=== PATIENT | male | born 1990 | race Caucasian/White ===

== ENCOUNTER 2018-03-16 22:55 | Outpatient (REF) | payer MEDICAID, SELFPAY ==
[2018-03-17 01:17] LABS: BUN 15 mg/dL (7-18); C-Reactive Protein 8.23 mg/dL (0.0-0.3); CREATININE 0.87 mg/dL (0.55-1.02)
[2018-03-17 01:42] LABS: Abs Immature Grans 0.06 k/cumm (0.0-0.09); Absolute Basophil Count 0.02 k/cumm (0.0-0.2); Absolute Eosinophil Count 0.32 k/cumm (0.0-0.7); Absolute Lymphocyte Count 2.61 k/cumm (1.2-3.4); Absolute Monocyte Count 0.72 k/cumm (0.11-0.7); Basophils % 0.2; Eosinophils % 2.6; HCT 35.3 % (36.0-46.0); Immature Grans % 0.5; Mean Corp. HGB Concentration 31.2 g/dL (32.0-36.0); Mean Corpuscular Volume 86.7 fL (80-95); Mean Platelet Volume 11.2 fL (8.0-11.0); Monocytes % 5.8; Neutrophils % 69.9; Platelet Count 363 x1000/uL (130-400); RBC 4.07 m/cumm (4.00-5.20); RBC Distribution Width 15.2 % (11.7-14.6); White Blood Cell Count 12.45 k/cumm (4.4-10.8)
[2018-03-17 02:20] LABS: ESR 117 MM/HR (0-20)
== END 2018-03-16 23:15 ==
LOC: LBN 22:55
PROVIDERS: PCP Internal Medicine Infectious Disease; Visit Provider Family Medicine
DX: M86.8X7 Other osteomyelitis, ankle and foot (principal); Z79.01 Long term (current) use of anticoagulants
CPT/HCPCS: 84520; 85652; 82565; 85025; 86140

== ENCOUNTER 2018-03-23 22:12 | Outpatient (REF) | payer MEDICAID, SELFPAY ==
[2018-03-23 22:32] LABS: Abs Immature Grans 0.02 k/cumm (0.0-0.09); Absolute Basophil Count 0.02 k/cumm (0.0-0.2); Absolute Eosinophil Count 0.16 k/cumm (0.0-0.7); Absolute Lymphocyte Count 2.24 k/cumm (1.2-3.4); Absolute Neutrophil Count 6.12 k/cumm (1.2-6.7); Basophils % 0.2; Eosinophils % 1.7; HCT 31.5 % (36.0-46.0); HGB 9.9 g/dL (12.0-15.5); Immature Grans % 0.2; Lymphocytes % 24.5; Mean Corp. HGB Concentration 31.4 g/dL (32.0-36.0); Mean Corpuscular Volume 86.1 fL (80-95); Mean Platelet Volume 11.4 fL (8.0-11.0); Monocytes % 6.6; Neutrophils % 66.8; Platelet Count 315 x1000/uL (130-400); RBC 3.66 m/cumm (4.00-5.20); RBC Distribution Width 15.1 % (11.7-14.6); White Blood Cell Count 9.16 k/cumm (4.4-10.8)
[2018-03-23 22:37] LABS: BUN 11 mg/dL (7-18); C-Reactive Protein 6.18 mg/dL (0.0-0.3); CREATININE 0.89 mg/dL (0.55-1.02)
[2018-03-23 23:31] LABS: ESR 96 MM/HR (0-20)
== END 2018-03-23 22:32 ==
LOC: LBN 22:12
PROVIDERS: PCP Family Medicine; Visit Provider Internal Medicine Infectious Disease
DX: M86.8X7 Other osteomyelitis, ankle and foot (principal); Z86.14 Personal history of Methicillin resistant Staphylococcus aureus infection; Z79.2 Long term (current) use of antibiotics
CPT/HCPCS: 84520; 85652; 82565; 85025; 86140

== ENCOUNTER 2018-03-30 21:12 | Outpatient (REF) | payer MEDICAID, SELFPAY ==
[2018-03-30 21:41] LABS: Abs Immature Grans 0.03 k/cumm (0.0-0.09); Absolute Basophil Count 0.03 k/cumm (0.0-0.2); Absolute Eosinophil Count 0.14 k/cumm (0.0-0.7); Absolute Lymphocyte Count 2.52 k/cumm (1.2-3.4); Absolute Monocyte Count 0.48 k/cumm (0.11-0.7); Absolute Neutrophil Count 3.83 k/cumm (1.2-6.7); Basophils % 0.4; HCT 33.8 % (36.0-46.0); HGB 10.6 g/dL (12.0-15.5); Immature Grans % 0.4; Lymphocytes % 35.8; Mean Corp. HGB Concentration 31.4 g/dL (32.0-36.0); Mean Corpuscular Hemoglobin 27.2 pg (27.0-33.0); Mean Corpuscular Volume 86.7 fL (80-95); Mean Platelet Volume 11.8 fL (8.0-11.0); Monocytes % 6.8; Neutrophils % 54.6; Platelet Count 275 x1000/uL (130-400); White Blood Cell Count 7.03 k/cumm (4.4-10.8)
[2018-03-30 21:53] LABS: BUN 10 mg/dL (7-18); C-Reactive Protein 1.56 mg/dL (0.0-0.3); CREATININE 0.85 mg/dL (0.55-1.02)
[2018-03-30 22:22] LABS: ESR 63 MM/HR (0-20)
== END 2018-03-30 21:32 ==
LOC: LBN 21:12
PROVIDERS: Internal Medicine Infectious Disease; PCP Family Medicine; Visit Provider Family Medicine
DX: M86.8X7 Other osteomyelitis, ankle and foot (principal); Z79.2 Long term (current) use of antibiotics; Z86.14 Personal history of Methicillin resistant Staphylococcus aureus infection
CPT/HCPCS: 84520; 85652; 82565; 85025; 86140

== ENCOUNTER 2018-04-06 21:55 | Outpatient (REF) | payer MEDICAID, SELFPAY ==
[2018-04-06 22:26] LABS: Abs Immature Grans 0.02 k/cumm (0.0-0.09); Absolute Basophil Count 0.03 k/cumm (0.0-0.2); Absolute Eosinophil Count 0.15 k/cumm (0.0-0.7); Absolute Monocyte Count 0.47 k/cumm (0.11-0.7); Absolute Neutrophil Count 4.45 k/cumm (1.2-6.7); Basophils % 0.4; Eosinophils % 1.9; HCT 35.1 % (36.0-46.0); HGB 11.2 g/dL (12.0-15.5); Immature Grans % 0.3; Lymphocytes % 33.7; Mean Corp. HGB Concentration 31.9 g/dL (32.0-36.0); Mean Corpuscular Hemoglobin 27.7 pg (27.0-33.0); Mean Corpuscular Volume 86.9 fL (80-95); Mean Platelet Volume 12.5 fL (8.0-11.0); Monocytes % 6.1; Neutrophils % 57.6; Platelet Count 236 x1000/uL (130-400); RBC 4.04 m/cumm (4.00-5.20); RBC Distribution Width 16.9 % (11.7-14.6); White Blood Cell Count 7.72 k/cumm (4.4-10.8)
[2018-04-06 22:27] LABS: BUN 14 mg/dL (7-18); C-Reactive Protein 1.17 mg/dL (0.0-0.3); CREATININE 0.65 mg/dL (0.55-1.02)
[2018-04-06 23:10] LABS: ESR 60 MM/HR (0-20)
== END 2018-04-06 22:15 ==
LOC: LBN 21:55
PROVIDERS: PCP Family Medicine; Visit Provider Internal Medicine Infectious Disease
DX: M86.8X7 Other osteomyelitis, ankle and foot (principal); Z86.14 Personal history of Methicillin resistant Staphylococcus aureus infection; Z79.2 Long term (current) use of antibiotics
CPT/HCPCS: 84520; 85652; 82565; 85025; 86140

== ENCOUNTER 2018-04-13 21:30 | Outpatient (REF) | payer MEDICAID, SELFPAY ==
[2018-04-13 22:11] LABS: Abs Immature Grans 0.03 k/cumm (0.0-0.09); Absolute Basophil Count 0.02 k/cumm (0.0-0.2); Absolute Eosinophil Count 0.12 k/cumm (0.0-0.7); Absolute Lymphocyte Count 2.87 k/cumm (1.2-3.4); Absolute Monocyte Count 0.45 k/cumm (0.11-0.7); Absolute Neutrophil Count 4.51 k/cumm (1.2-6.7); BUN 11 mg/dL (7-18); Basophils % 0.3; C-Reactive Protein 1.58 mg/dL (0.0-0.3); CREATININE 0.73 mg/dL (0.55-1.02); Eosinophils % 1.5; HCT 36.1 % (36.0-46.0); HGB 11.4 g/dL (12.0-15.5); Immature Grans % 0.4; Lymphocytes % 35.9; Mean Corp. HGB Concentration 31.6 g/dL (32.0-36.0); Mean Corpuscular Hemoglobin 27.2 pg (27.0-33.0); Mean Corpuscular Volume 86.2 fL (80-95); Mean Platelet Volume 12.3 fL (8.0-11.0); Monocytes % 5.6; Neutrophils % 56.3; Platelet Count 218 x1000/uL (130-400); RBC 4.19 m/cumm (4.00-5.20); RBC Distribution Width 16.6 % (11.7-14.6)
[2018-04-13 22:48] LABS: ESR 52 MM/HR (0-20)
== END 2018-04-13 21:50 ==
LOC: LBN 21:30
PROVIDERS: PCP Family Medicine; Visit Provider Internal Medicine Infectious Disease
DX: M86.172 Other acute osteomyelitis, left ankle and foot (principal); Z79.2 Long term (current) use of antibiotics
CPT/HCPCS: 84520; 85652; 82565; 85025; 86140

== ENCOUNTER 2018-04-19 22:39 | Outpatient (REF) | payer MEDICAID, SELFPAY ==
[2018-04-19 21:31] LABS: Abs Immature Grans 0.03 k/cumm (0.0-0.09); Absolute Basophil Count 0.03 k/cumm (0.0-0.2); Absolute Lymphocyte Count 1.97 k/cumm (1.2-3.4); Absolute Monocyte Count 0.42 k/cumm (0.11-0.7); Absolute Neutrophil Count 5.51 k/cumm (1.2-6.7); Basophils % 0.4; Eosinophils % 1.2; HGB 11.7 g/dL (13.5-17.5); Immature Grans % 0.4; Lymphocytes % 24.4; Mean Corp. HGB Concentration 31.6 g/dL (32.0-36.0); Mean Corpuscular Hemoglobin 27.1 pg (27.0-33.0); Mean Corpuscular Volume 85.6 fL (80-95); Mean Platelet Volume 12.3 fL (8.0-11.0); Monocytes % 5.2; Neutrophils % 68.4; Platelet Count 231 x1000/uL (130-400); RBC 4.32 m/cumm (4.50-6.00); RBC Distribution Width 16.3 % (11.8-14.1); White Blood Cell Count 8.06 k/cumm (4.4-10.8)
[2018-04-19 21:43] LABS: BUN 11 mg/dL (7-18); C-Reactive Protein 1.99 mg/dL (0.0-0.3); CREATININE 0.91 mg/dL (0.70-1.30)
[2018-04-19 22:21] LABS: ESR 44 MM/HR (0-15)
== END 2018-04-19 22:59 ==
LOC: LBN 22:39
PROVIDERS: PCP Family Medicine; Visit Provider Internal Medicine Infectious Disease
DX: M86.172 Other acute osteomyelitis, left ankle and foot (principal); Z79.2 Long term (current) use of antibiotics
CPT/HCPCS: 84520; 85652; 82565; 85025; 86140

== ENCOUNTER 2018-12-09 17:41 | Outpatient (REF) | payer MEDICAID, SELFPAY ==
[2018-12-09 22:06] LABS: Calculated LDL 97 mg/dL; Cholesterol 168 mg/dL (50-200); HDL Cholesterol 32 mg/dL (40-60); Magnesium 2.1 mg/dL (1.8-2.4); TSH (W/Ref FT4) 1.93 uIU/mL (0.36-3.74); Triglyceride 196 mg/dL (30-150)
== END 2018-12-09 18:01 ==
LOC: NCHCN 17:41
PROVIDERS: PCP Family Medicine; Visit Provider Family Medicine
DX: I48.91 Unspecified atrial fibrillation (principal); Z13.220 Encounter for screening for lipoid disorders; Z00.00 Encounter for general adult medical examination without abnormal findings
CPT/HCPCS: 80061; 83735; 84443

== ENCOUNTER 2019-01-17 16:11 | Outpatient (REF) | payer MEDICAID, SELFPAY ==
[2019-01-17 21:26] LABS: Abs Immature Grans 0.01 k/cumm (0.0-0.09); Absolute Basophil Count 0.03 k/cumm (0.0-0.2); Absolute Eosinophil Count 0.12 k/cumm (0.0-0.7); Absolute Lymphocyte Count 2.06 k/cumm (1.2-3.4); Absolute Monocyte Count 0.43 k/cumm (0.11-0.7); Absolute Neutrophil Count 5.23 k/cumm (1.2-6.7); Basophils % 0.4; Eosinophils % 1.5; HCT 37.1 % (40.0-50.0); HGB 11.6 g/dL (13.5-17.5); Immature Grans % 0.1; Lymphocytes % 26.1; Mean Corp. HGB Concentration 31.3 g/dL (32.0-36.0); Mean Corpuscular Hemoglobin 26.7 pg (27.0-33.0); Mean Corpuscular Volume 85.5 fL (80-95); Mean Platelet Volume 12.2 fL (8.0-11.0); Monocytes % 5.5; Neutrophils % 66.4; Platelet Count 278 x1000/uL (130-400); RBC 4.34 m/cumm (4.50-6.00); RBC Distribution Width 15.8 % (11.8-14.1); White Blood Cell Count 7.88 k/cumm (4.4-10.8)
[2019-01-17 21:38] LABS: ALT 47 U/L (16-63); AST 28 U/L (15-37); Albumin 3.4 g/dL (3.4-5.0); Alkaline Phosphatase 48 U/L (46-116); Anion Gap 6.7 mmol/L (3-11); BUN 12 mg/dL (7-18); Bilirubin, Total 0.3 mg/dL (0.2-1.0); C-Reactive Protein 1.92 mg/dL (0.0-0.3); CO2 30.3 mmol/L (21.0-32.0); CREATININE 0.75 mg/dL (0.70-1.30); Calcium 9.1 mg/dL (8.5-10.1); Chloride 105 mmol/L (98-107); Glucose 81 mg/dL (74-106); Potassium 4.4 mmol/L (3.5-5.1); Sodium 142 mmol/L (136-145); Total Protein 7.7 g/dL (6.4-8.2)
== END 2019-01-17 16:31 ==
LOC: NCHCN 16:11
PROVIDERS: PCP Family Medicine; Visit Provider Family Medicine
DX: L03.90 Cellulitis, unspecified (principal); E66.01 Morbid (severe) obesity due to excess calories; R82.90 Unspecified abnormal findings in urine
CPT/HCPCS: 80053; 85025; 86140; 87086

== ENCOUNTER 2019-09-14 14:38 | Outpatient (REF) | payer MEDICAID, SELFPAY ==
[2019-09-14 20:40] LABS: Abs Immature Grans 0.01 10^3/uL (0.0-0.06); Absolute Basophil Count 0.04 10^3/uL (0.0-0.2); Absolute Eosinophil Count 0.12 10^3/uL (0.0-0.7); Absolute Lymphocyte Count 2.24 10^3/uL (1.2-3.4); Absolute Monocyte Count 0.42 10^3/uL (0.1-0.8); Absolute Neutrophil Count 3.91 10^3/uL (1.2-6.7); Basophils % 0.6; Eosinophils % 1.8; HGB 11.8 g/dL (13.5-17.5); Immature Grans % 0.1; Lymphocytes % 33.2; MCH 26.6 pg (27.0-33.0); MCHC 31.9 % (32.0-36.0); MCV 83.5 fL (80-95); MPV 12.1 fL (8.0-11.0); Monocytes % 6.2; Neutrophils % 58.1; Platelet Count 269 10^3/uL (130-400); RBC 4.43 10^6/uL (4.36-5.78); RDW 15.6 % (11.8-14.1); WBC 6.74 10^3/uL (4.4-10.8)
[2019-09-14 21:20] LABS: ESR 58 mm/hr (0-15)
[2019-09-14 21:27] LABS: C-Reactive Protein 3.01 mg/dL (0.0-0.3)
== END 2019-09-14 14:58 ==
LOC: NCHCN 14:38
PROVIDERS: PCP Family Medicine; Visit Provider Family Medicine
DX: L97.526 Non-pressure chronic ulcer of other part of left foot with bone involvement without evidence of necrosis (principal)
CPT/HCPCS: 85652; 85025; 86140

== ENCOUNTER 2019-10-06 11:07 | Outpatient (REF) | payer MEDICAID, SELFPAY ==
[2019-10-08 01:20] LABS: COVID-19 RT-PCR UVMMC Result Negative (Negative)
== END 2019-10-06 11:27 ==
LOC: NCHCN 11:07
PROVIDERS: PCP Family Medicine; Visit Provider Nurse Practitioner Family
DX: Z11.59 Encounter for screening for other viral diseases (principal); Z01.818 Encounter for other preprocedural examination
CPT/HCPCS: U0003

== ENCOUNTER 2019-12-26 21:40 | Outpatient (REF) | payer MEDICAID, SELFPAY ==
[2019-12-26 21:30] LABS: Bilirubin Negative (Negative); Blood Negative (Negative); Clarity Cloudy (Clear); Glucose Negative (Negative); Ketones Negative (Negative); Leukocyte Esterase Negative (Negative); Nitrite Negative (Negative); Specific Gravity 1.025 (1.005-1.025); Urobilinogen 0.2 EU/dL (Up TO 0.2)
== END 2019-12-26 22:00 ==
LOC: NCHCN 21:40
PROVIDERS: PCP Family Medicine; Visit Provider Family Medicine
DX: R30.0 Dysuria (principal); G82.20 Paraplegia, unspecified
CPT/HCPCS: 81003

== ENCOUNTER 2020-02-28 22:15 | Outpatient (REF) | payer MEDICAID, SELFPAY ==
[2020-02-28 22:43] LABS: D-Dimer 2428 ng/mlFEU (<500)
== END 2020-02-28 22:35 ==
LOC: LBN 22:15
PROVIDERS: PCP Family Medicine; Visit Provider Family Medicine
DX: G82.20 Paraplegia, unspecified (principal); L89.522 Pressure ulcer of left ankle, stage 2; Z79.01 Long term (current) use of anticoagulants; I48.91 Unspecified atrial fibrillation
CPT/HCPCS: 85379

== ENCOUNTER 2020-08-02 14:39 | Outpatient (REF) | payer MEDICAID, SELFPAY ==
[2020-08-02 15:30] LABS: Bilirubin Negative (Negative); Blood Negative (Negative); Clarity Clear (Clear); Glucose Negative (Negative); Ketones Negative (Negative); Leukocyte Esterase Negative (Negative); Nitrite Negative (Negative); Specific Gravity 1.025 (1.005-1.025)
== END 2020-08-02 14:40 | disposition home or self-care (01) ==
LOC: NCHCN 14:39
PROVIDERS: PCP Family Medicine; Visit Provider Family Medicine
DX: N31.9 Neuromuscular dysfunction of bladder, unspecified (principal); R30.0 Dysuria; R35.0 Frequency of micturition
CPT/HCPCS: 81003

== ENCOUNTER 2020-09-09 13:47 | Outpatient (REF) | payer MEDICAID, SELFPAY ==
[2020-09-09 14:01] LABS: Abs Immature Grans 0.03 10^3/uL (0.0-0.06); Absolute Basophil Count 0.05 10^3/uL (0.0-0.2); Absolute Lymphocyte Count 2.75 10^3/uL (1.2-3.4); Absolute Monocyte Count 0.62 10^3/uL (0.1-0.8); Basophils % 0.5; Eosinophils % 1.8; HCT 39.3 % (40.0-50.0); HGB 12.1 g/dL (13.5-17.5); Immature Grans % 0.3; Lymphocytes % 25.3; MCHC 30.8 % (32.0-36.0); MCV 84.3 fL (80-95); MPV 11.8 fL (8.0-11.0); Monocytes % 5.7; Neutrophils % 66.4; Nucleated RBC 0 %; Platelet Count 290 10^3/uL (130-400); RBC 4.66 10^6/uL (4.36-5.78); RDW-SD 48.7 fL; WBC 10.88 10^3/uL (4.4-10.8)
[2020-09-09 14:02] LABS: Absolute Neutrophil Count 7.22 10^3/uL (1.2-6.7)
[2020-09-09 14:20] LABS: ALT 35 U/L (16-63); AST 18 U/L (15-37); Albumin 3.3 g/dL (3.4-5.0); Alkaline Phosphatase 52 U/L (46-116); Anion Gap 9.2 mmol/L (3-11); BUN 12 mg/dL (7-18); Bilirubin, Total 0.4 mg/dL (0.2-1.0); CO2 27.8 mmol/L (21.0-32.0); CREATININE 0.7 mg/dL (0.70-1.30); Calcium 9.2 mg/dL (8.5-10.1); Chloride 104 mmol/L (98-107); Glucose 103 mg/dL (74-106); Potassium 4.5 mmol/L (3.5-5.1); Sodium 141 mmol/L (136-145); TSH (W/Ref FT4) 1.14 uIU/mL (0.36-3.74); Total Protein 7.8 g/dL (6.4-8.2)
[2020-09-09 14:34] LABS: Hemoglobin A1C 5.8 % (<5.7)
[2020-09-13 16:56] LABS: Testosterone, Total 119 ng/dL (240-950)
== END 2020-09-09 13:48 | disposition home or self-care (01) ==
LOC: LBN 13:47
PROVIDERS: PCP Family Medicine; Visit Provider Family Medicine
DX: G82.20 Paraplegia, unspecified (principal); K76.0 Fatty (change of) liver, not elsewhere classified; M54.9 Dorsalgia, unspecified; L89.312 Pressure ulcer of right buttock, stage 2; R73.09 Other abnormal glucose
CPT/HCPCS: 80053; 84403; 83036; 84443; 85025

== ENCOUNTER 2020-09-30 23:14 | Outpatient (REF) | payer MEDICAID, SELFPAY ==
[2020-09-30 21:40] LABS: Bilirubin Negative (Negative); Blood Small (Negative); Clarity Cloudy (Clear); Glucose Negative (Negative); Ketones Negative (Negative); Leukocyte Esterase Large (Negative); Nitrite Positive (Negative); Specific Gravity 1.015 (1.005-1.025); pH 8.5 (5-8)
[2020-09-30 21:51] LABS: Bacteria Moderate HPF (Negative); C & S Indicated? Yes; Casts Negative LPF (Negative); Crystals Negative HPF (Negative); Epithelial Cells Negative HPF (Negative); Mucus Negative (Negative)
== END 2020-09-30 23:15 | disposition home or self-care (01) ==
LOC: LBN 23:14
PROVIDERS: PCP Family Medicine; Visit Provider Family Medicine
DX: N39.0 Urinary tract infection, site not specified (principal)
CPT/HCPCS: 87077; 81003; 81015; 87086; 87186

== ENCOUNTER 2020-10-28 21:14 | Outpatient (REF) | payer MEDICAID, SELFPAY ==
[2020-11-01 17:33] LABS: Testosterone, Total 102 ng/dL (240-950)
== END 2020-10-28 21:15 | disposition home or self-care (01) ==
LOC: NCHCN 21:14
PROVIDERS: PCP Family Medicine; Visit Provider Family Medicine
DX: R53.83 Other fatigue (principal)
CPT/HCPCS: 84403

== ENCOUNTER 2020-12-11 20:16 | Outpatient (REF) | payer MEDICAID, SELFPAY ==
--- OUTSIDE RECORDS SUMMARY | 2020-12-11 20:20 | XMS_ITS | Continuity of Care Document ---
:1990 Author Organization [facility] Address [address] [place] [phone] Phone Care Team Providers Name Role Phone Nurse, Office Unavailable Unavailable Medications Medication Instructions Dosage Effective Dates Status Comment s (start - stop) amitriptyline 25 mg take 1 tablet by oral 25 MG - Activ e tablet route every day at bedtime as needed oxybutynin chloride 5 take 1 tablet by oral 5 MG - Act gissel mg tablet route 3 times every day gabapentin 600 mg take 1 tablet by oral 600 MG - Active tablet route 3 times every day baclofen 20 mg tablet take 1 tablet by oral 20 MG - Act gissel route 3 times every evening Advance Directives Directive Yes / No Effective Date File Name No Information Encounters Encounter Practice Location Reason(s) Diagnoses Date Provider Provide rs Description For Visit Copied on Encounter [facility] No Nurse Health Information -[address], [address] [place], tel:[phone], [id number] tel:[phone] Family History Family Member Type Diagnosis Age At Onset No Information Immunizations Vaccine Date Status Comments Tdap administered Source: Other Re gistry Tdap administered Source: Other Re gistry Payers Payer name Insurance type Covered green party ID Authorization(s ) No Information Social History Type Description Quantity Date Captured Comments Sex Male Smoking Status No Information Chief Complaint And Reason For Visit No Information Plan Of Treatment Date Type Action Status No Information History Of Present Illness Encounter Date Complaint History Of Present I llness No Information Instructions Date Instruction Additional Informati on No Information Assessments Type Assessment Date No Information
--- OUTSIDE RECORDS SUMMARY | 2020-12-11 20:20 | XMS_ITS | CCD ---
:1990 Author Care Team Providers Name Role Phone MD HA Attending Physician Unavailable MD HA Er Physician 1 Unavailable Vital Signs Unknown or Not Available. Allergies Allergy Code Allergy Type Reaction Status ERYTHROMYCIN 4053 Drug allergy Hives Active Procedures Unknown or Not Available. History of Immunizations Unknown or Not Available. Problems Problem Code Start Date Resolved Date Status Pressure ulcer of [id number] Activ e left foot Morbid obesity 869937222 Active Paraplegia 98183787 Active Cellulitis of leg 739955752 Active Osteomyelitis of foot 83705290 Active UTI 06821177 Active Results BASIC METABOLIC PANEL (BMP) - Collect Da te/Time: 08/16/2020 22:09 Test Name Code Test Result Test Units Test Ref Range GLUCOSE 2345-7 96 mg/dL L=70 H=11 6 BUN 3094-0 12 mg/dL L=6 H=25 CREATININE 2160-0 0.76 mg/dL L=0.67 H=1.17 SODIUM SERUM 2951-2 138 mmol/L L=136 H=14 5 POTASSIUM SERUM 2823-3 4.3 mmol/L L=3.4 H =5.2 CHLORIDE SERUM 2075-0 101 mmol/L L=96 H= 110 CARBON DIOXIDE (CO2) 2028-9 29 mmol/L L=22 H=34 ANION GAP 97507-3 7.6 mmol/L CALCIUM SERUM 05036-5 9.1 mg/dL L=8.2 H=10.2 AGE 30 years eGFR (non-Afr.Amer.) 72117-7 119 mL/min eGFR (Afr-Swazi) 52957-9 >120 mL/min CBC W/ DIFFERENTIAL - Collect Date/Time: 08/16/2020 22:09 Test Name Code Test Result Test Units Test Ref Range WBC 6690-2 11.33 th/cmm L=5.00 H=10.00 NEUT % 67.6 % L=40.0 H=80.0 LYMPH % 22.7 % L=10.0 H=50.0 MONO % 50980-1 6.2 % L=2.0 H=12.0 EOS % 2.8 % L=0.0 H=8. 0 BASO % 0.4 % L=0.0 H=3. 0 IG % 2514-8 0.3 % L=0.0 H=1. 1 NRBC % 40212-3 0.0 % L=0.0 H=0. 0 NEUT abs count 751-8 7.7 th/cmm L=1.6 H= 8.4 LYMPH abs count 731-0 2.6 th/cmm L=1.5 H =4.0 MONO abs count 742-7 0.7 th/cmm L=0.2 H= 1.0 EOS abs count 711-2 0.3 th/cmm L=0.0 H=0 .5 BASO abs count 704-7 0.1 th/cmm L=0.0 H= 0.2 IG abs count 10852-4 0.0 th/cmm L=0.0 H=0. 1 NRBC abs count 43044-2 0.0 mil/cmm L=0.0 H= 0.0 RBC 789-8 4.49 mil/cmm L=4.30 H=6.20 HEMOGLOBIN 718-7 11.9 gm/dL L=13.0 H=17.0 HEMATOCRIT 4544-3 37 % L=45 H=52 MCV 787-2 83 fL L=82 H=92 MCH 785-6 26.5 pg L=27.0 H=31.0 MCHC 786-4 32.0 % L=32.0 H=36.0 RDW-SD 788-0 47.8 fL L=39.0 H=49.0 PLATELET COUNT 777-3 285 th/cmm L=150 H= 450 MAURICE COVID FLU RSV GENEXPERT - Collect Date/Time: 08/16/2020 22:55 Test Name Code Test Result Test Units Test Ref Range COVID 25693-5 NEGATIVE N/A Normal: Negativ e INFLUENZA A DNA 21022-2 NEGATIVE N/A Normal: Nega tive INFLUENZA B DNA 67454-6 NEGATIVE N/A Normal: Nega tive RSV DNA 64130-5 NEGATIVE N/A Normal: Negativ e Active Medications Medication Code Dose Units Frequency Route Modification Start Date/Time Ibuprofen 1 TABLET NEEDED ORAL 12/01/2020 600MG Oral THREE TIMES 12:31 Tablet A DAY Prescription Detail TAKE 1 TABLET ORAL NEEDED THREE TIMES A DAY for pain Cephalexin 500MG 19730618 1 TABLET THREE ORAL 021 Oral Tablet TIMES A 12:30 DAY Prescription Detail TAKE 1 TABLET ORAL THREE ADILENE ES A DAY x 7 days (through 12/07) then continue one tab daily Baclofen 20MG 19721017 30 MILLIGRAMS THREE ORAL 021 Oral Tablet TIMES A 12:28 DAY Prescription Detail TAKE 30 MILLIGRAMS ORAL THRE E TIMES A DAY Gabapentin 783124 600 MILLIGRAMS THREE ORAL 12/01/2020 600MG Oral TIMES A 12:28 Tablet DAY Prescription Detail TAKE 600 MILLIGRAMS ORAL THR EE TIMES A DAY HYDROcodone 382936 1 EACH NEEDED ORAL 12/01/2020 bitartrate-acetaminophen FOUR TIMES 12:28 5MG-325MG Oral Tablet A DAY Prescription Detail TAKE 1 EACH ORAL NEEDED F OUR TIMES A DAY Medications Administered During Visit Unknown or Not Available. Encounters Encounter Diagnosis Diagnosis Code Start Date Acute sinusitis, unspecified [id number] 08/16/2020 Social History Smoking Status Code Start Date End Date Never smoker [id number] Patient Decision Aids Unknown or Not Available. Discharge Instructions You were admitted to [facility] 01 on 08/16/2020 21:08 with a principal diagnosis of Acute sinusitis, unspecifie d You had the following tests done: [facility] FLU RSV GENEXPERT BASIC METABOLIC PANEL (BMP) CBC W/ DIFFERENTIAL You were discharged from [facility] on 08/17/2020 01:39 Should you have any questions prior to d ischarge, please contact a member of your healthcare team. If you have left the spital and have any questions, please contact your primary care physician. Chief Complaint and Reason For Visit Chief Complaint Date of Onset SHORT OF BREATH Function Status Unknown or Not Available. Plan of Care Unknown or Not Available. Referral/Transition of Care Unknown or Not Available.
[2020-12-13 10:26] LABS: COVID-19 RT-PCR UVMMC Result Negative (Negative)
== END 2020-12-11 20:17 | disposition home or self-care (01) ==
LOC: LBN 20:16
PROVIDERS: PCP Family Medicine; Visit Provider Nurse Practitioner Family
DX: Z20.822 Contact with and (suspected) exposure to COVID-19 (principal)
CPT/HCPCS: U0003

== ENCOUNTER 2021-12-29 16:24 | Outpatient (REF) | payer MEDICAID, SELFPAY ==
[2021-12-29 19:41] LABS: Bilirubin Negative (Negative); Blood Moderate (Negative); Clarity Cloudy (Clear); Glucose Negative (Negative); Ketones Negative (Negative); Leukocyte Esterase Large (Negative); Nitrite Positive (Negative); Specific Gravity >= 1.030 (1.005-1.025); Urobilinogen 0.2 EU/dL (Up TO 0.2); pH 6.5 (5-8)
[2021-12-29 19:53] LABS: Bacteria Many HPF (Negative); C & S Indicated? C&S Done As Ordered; Casts Negative LPF (Negative); Crystals Negative HPF (Negative); Epithelial Cells Few HPF (Negative); Mucus Trace (Negative); WBC >50 HPF (0-5)
== END 2021-12-29 16:25 | disposition home or self-care (01) ==
LOC: LBN 16:24
PROVIDERS: PCP Family Medicine; Visit Provider Pediatrics
DX: N39.0 Urinary tract infection, site not specified (principal)
CPT/HCPCS: 87077; 81003; 81015; 87086; 87186

== ENCOUNTER 2023-02-08 22:10 | Emergency (ER) | payer MEDICAID, SELFPAY ==
[2023-02-08 22:09] VITALS: BP 148/84; PULSE 105; TEMP 36.8; O2SAT 98
--- NOTE | 2023-02-08 22:15 | DI.RAD_ITS ---
Exam(s) XR PORTABLE CHEST AP EXAM: XR PORTABLE CHEST AP CLINICAL HISTORY: left rib pain, eval for gross fx TECHNIQUE: 2D digital imaging was performed. COMPARISON: No exams were available for comparison FINDINGS: Exam limited by under penetration and patient body habitus. LUNGS: Not well inflated. Grossly clear. No pleural abnormality seen. HEART: Normal size. AORTA: Normal diameter. BONES: Hardware in spine. Soft tissues: Unremarkable. IMPRESSION: Limited exam. No acute findings. DATA REPOSITORY: RADIATION DOSE DELIVERED:
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
--- NOTE | 2023-02-08 23:03 | DI.VRAD_ITS ---
PROCEDURE INFORMATION: Exam: XR Chest Exam date and time: 02/08/2023 10:31 PM Age: 32 years old Clinical indication: Pain; Left-sided TECHNIQUE: Imaging protocol: Radiologic exam of the chest. Views: 1 view. COMPARISON: No relevant prior studies available. FINDINGS: Lungs: Low lung volumes. Favored scattered subsegmental atelectasis without gross airspace disease. Pleural spaces: No pleural effusion. No pneumothorax. Heart/Mediastinum: Mild cardiomegaly with no vascular congestion. Bones/joints: Thoracic and lumbar fixation hardware very poorly assessed due to technique. No displaced fracture. IMPRESSION: Mild cardiomegaly with no vascular congestion. Dictated and Authenticated by: Nely Pagan MD. Ordering:HERBERT Mcconnell MD
[2023-02-08] MEDS: Lidocaine 5% Patch 2 PATCH TP (23:20)
[2023-02-09 00:41] VITALS: BP 140/70; PULSE 98; RESP 16; TEMP 36.8; O2SAT 98
== END 2023-02-09 00:41 | disposition home or self-care (01) ==
LOC: ER 23:34
PROVIDERS: Emergency Provider Student in an Organized Health Care Education/Training Program; PCP Family Medicine
DX: T83.021A Displacement of indwelling urethral catheter, initial encounter (principal)
CPT/HCPCS: 51702; 99283; 71045

== ENCOUNTER 2023-02-27 22:35 | Emergency (ER) | payer MEDICAID, SELFPAY ==
--- NOTE | 2023-02-27 23:00 | DI.CT_ITS ---
Exam(s) CT ABDOMEN PELVIS W EXAM: CT ABDOMEN PELVIS W CLINICAL HISTORY: large scrotal lesion, eval for gas/nec fasc. TECHNIQUE: Imaging Protocol: Axial computed tomography images with coronal and sagittal reformatted images were created and reviewed CONTRAST MATERIAL: Intravenous: Omnipaque-350 100cc Oral: None COMPARISON: No exams were available for comparison FINDINGS: VISUALIZED LUNG BASES: No nodules nor pleural effusions evident. Fusion rods are noted in the lower thoracic and upper lumbar spines as well as hardware in the right-side of the pelvis and right hip. Paraplegic patient ABDOMEN: There is no ascites. LIVER: Liver is slightly prominent in size and also hypodense implying steatosis. There no discrete focal hepatic lesions evident. No abscess. No dilated intrahepatic ducts. GALLBLADDER/BILIARY: No obvious gallbladder pathology. CBD is not dilated. PANCREAS: No evidence of pancreatic mass nor dilatation of the pancreatic duct. SPLEEN: Mild splenomegaly noted. No splenic lesions evident. Splenic and portal veins are patent. ADRENALS: There are no significant adrenal masses. KIDNEYS:No cysts evident. No solid renal masses. No calculi nor hydronephrosis.. ABDOMINAL AORTA: Abdominal aorta is not enlarged. LYMPH NODES:There is no retroperitoneal nor paraaortic adenopathy. ABDOMINAL WALL: No evidence of significant anterior abdominal wall nor inguinal hernia. GI: There is no evidence of bowel obstruction, free air, nor abscess. PELVIS: GI: No evidence of appendicitis.No evidence of sigmoid diverticulitis. LYMPH NODES: No intrapelvic adenopathy but and there is bilateral inguinal adenopathy. REPRODUCTIVE: Prostate not enlarged. Seminal vesicles unremarkable. URINARY BLADDER: There is some gas within the urinary bladder which is most probably right and to a F oley catheter. However, the Arguello catheter is not in the urinary bladder but is in the penile urethr a. This will need repositioning. Bladder wall is not significantly thickened nor edematous. SOFT TISSUES: There is diffuse severe scrotal wall edema. There is a small amount of soft tissue gas evident within the posterior superior aspect of the scrotum (series 6/images 117/116) OSSEOUS: Hardware in the right hemipelvis and hip from prior surgery. 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 There is myositis ossificans in the lower anterior right thigh musculature. No acute fractures evident. No evidence of osteomyelitis. IMPRESSION: 1. Severe scrotal wall edema. There is a small amount of gas noted within the scrotum. May indicate developing necrotizing infection 2. Bilateral inguinal lymphadenopathy evident. 3. Arguello catheter is in the penile urethra and will need repositioning into the urinary bladder. The air within the urinary bladder is most probably related to Arguello catheter attempt. The urinary blad jose david wall does not appear thickened nor emphysematous. 4. Hepatosplenomegaly. Hepatic steatosis. Chronic osseous changes in the right hemipelvis and hip with absence of right femoral head. No evide nce of osteomyelitis. There is myositis ossificans in the lower anterior right thigh musculature. First read by [facility] Final report called by myself to ER physician 02/28/2023 2:58 p.m.. Apparently this patient has been transferred to [facility] This report will be forwarded. RADIATION DOSE DELIVERED: 2,943.79mGy.cm Total DLP DATA REPOSITORY: All CT scans at this facility are submitted to the National Radiology Data Registry (NRDR) Dose Index Registry (DIR) with the [employer] (ACR). RADIATION OPTIMIZATION: All CT scans at this facility use at least one of these dose optimization te chniques: automated exposure control; mA and/or kV adjustment per patient size (includes targeted exa ms where dose is matched to clinical indication); or iterative reconstruction.
[2023-02-27 23:10] VITALS: O2SAT 96
--- NOTE | 2023-02-27 23:12 | ED.GENADUL_ITS ---
HPI General MAYA: 3 Date/Time Provider Initiated Documentation: 02/27/23 22:49. 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 [place] [facility] [place] when he subsequently left [place]. He is followed by infectious disease at the [facility], Dr. Lin, and was recently seen by [facility] wound care yesterday. He has been denied in the past by local VNA associations, and is currently being managed by his brother and his mother for dressing changes at home. At his exam yesterday at [facility] it was recommended that he go to the emergency department for admission, IV antibiotics, and continued management. Patient did not want to go to the [facility] ED and went home instead. He said that he would be going to the [facility] ED the next day. However today he presents to our ED for further evaluation. He denies fever or chills. He was recently on Cipro for his foot and finished this 3 days ago. He denies fever or chills. He admits to pain and drainage from his scrotum. No other new complaints at this time. Related Data Home Medications Medication Instructions Recorded Confirmed amitriptyline 10 mg tablet 10 - 20 mg PO QHS 09/12/18 02/27/23 baclofen 20 mg tablet 50 mg PO TID 09/12/18 02/27/23 gabapentin 600 mg tablet 1,200 mg PO TID 09/12/18 02/27/23 oxybutynin chloride 5 mg tablet 5 mg PO TID 09/12/18 02/27/23 ranitidine HCl 150 mg capsule 150 mg PO BID 09/12/18 02/27/23 hydrocodone 5 mg-acetaminophen 325 1 tab PO Q6H PRN 02/08/23 02/27/23 mg tablet morphine 15 mg tablet,extended 15 mg PO Q12H PRN 02/08/23 02/27/23 release Allergies Allergy/AdvReac Type Severity Reaction Status Date / Time erythromycin base Allergy Intermediate Unverified 02/27/23 23:18 Review of Systems All systems reviewed & are unremarkable except as noted in HPI and below PFSH All Active Problems (Updated 02/28/23 @ 02:20 by Jayesh Bedoya DO) Arguello catheter problem (Acute) Cellulitis of scrotum (Acute) Arguello catheter problem (Acute) Medical History Foot ulcer Tibia/fibula fracture Isiah placement Acetabulum fracture Open fracture of forearm H/O methicillin resistant Staphylococcus aureus Peripheral edema Severe obesity Depression Neurogenic bowel Neurogenic bladder Wheelchair bound Paraplegia Right hip pain H/O deep venous thrombosis Snoring Daytime somnolence GERD (gastroesophageal reflux disease) Chronic back pain Chronic leg pain Chronic pain Social History Smoking/Tobacco Use Status: Never Smoking risk assessment performed?: Yes Alcohol Intake: current Alcohol Intake frequency: holidays/special occasions only Substance use type: marijuana Details: Has tried marijuana in the past, makes nerve pain worse, denies others. Housing: house Do you feel safe at home: Yes Do you feel safe in your relationship?: Yes Exam Narrative Exam Narrative: 1.Const: Well-nourished, super morbidly obese 2.Eyes: PERRL, no conjunctival injection, and symmetrical lids. 3.ENT: Atraumatic external nose and ears. Moist MM. Neck: Symmetric, trachea midline, No thyromegaly. 4.CVS: +S1/S2, No murmurs or gallops. Peripheral pulses 2+ and equal in all extremities. Brisk capillary refill in all extremities. 5.RESP: Unlabored respiratory effort. Clear to auscultation bilaterally. No wheezes rales or rhonchi 6.GI: Soft, Nontender/Nondistended, No hepatosplenomegaly. No guarding or rebound. Genital exam demonstrates a large bleeding ulcer on the posterior aspect of his scrotum extending up towards the buttock and the ischial areas. There is purulence, drainage, and some feculent material. No subcutaneous crepitus that I can palpate. Mild pain, but not pain out of proportion. Generalized redness throughout the posterior aspect of the scrotum. 7.MSK: Chronic ulcer in the right lower foot. Paraplegia of the lower extremities, normal movement of the upper extremities. 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 Patient at neurologic baseline 10.Psych: (AAO) x3. Appropriate mood and affect Course Lab/Test Results Lab/Test Results: 02/27/23 22:52 Scrotum Wound Culture - Pending 02/27/23 22:52 Scrotum Gram Stain - Pending 02/27/23 22:50 Blood Blood Culture - Pending 02/27/23 22:50 Blood Blood Culture - Pending Medical Decision Making 32-year-old male with a past medical history of paraplegia, chronic ulcers in the lower extremities, including multiple open ulcers on the bilateral ischium, buttocks, and stage IV injury on the right heel, who has had multiple procedures on the scrotum for incision and debridement for abscess in the past. [place] [facility] [place]06[place]23 when he subsequently left [place]. He is followed by infectious disease at the [facility], Dr. Lin, and was recently seen by [facility] wound care yesterday. He has been denied in the past by local VNA associations, and is currently being managed by his brother and his mother for dressing changes at home. At his exam yesterday at [facility] it was recommended that he go to the emergency department for admission, IV antibiotics, and continued management. Patient did not want to go to the [facility] ED and went home instead. He said that he would be going to the [facility] ED the next day. However today he presents to our ED for further evaluation. He denies fever or chills. He was recently on Cipro for his foot and finished this 3 days ago. He denies fever or chills. He admits to pain and drainage from his scrotum. No other new complaints at this time. Exam demonstrates a large ulcer on the scrotum, bleeding with feculent material and purulence. No subcutaneous crepitus. No pain out of proportion. Mild erythema throughout. Limited bedside ultrasound did not show any evidence of significant air. Please refer to picture below. Concern for neck Fash versus cellulitis. We will get a CT scan to rule out abscess or nec-Fasch. Will check for reactive inflammatory markers, monitor closely and reassess. We will start the patient on vancomycin and Zosyn. 2:12 AM Laboratory workup demonstrates an elevated white count at 11.2, left shift, ESR is elevated at 78, CRP is elevated at 10, electrolytes stable, sodium normal. Lactate 1.1. Procalcitonin 0.1. CT scan does not show evidence of gas within the tissues, notable edema is noted throughout with notable skin breakdown. CT scan of the foot shows no evidence of osteomyelitis. Of note incidentally, he has Arguello catheter which has been in for the last few weeks does show malposition in the proximal urethra. Patient has no pain but also no sensation in that region in general. It has been flowing well during his stay here, and he has over 300 cc in his Arguello catheter bag. At this time as he is a notably challenging Arguello catheter placement patient we will not remove the catheter as it does appear to be functioning well and this appears to be more chronic etiology rather than acute currently. That being said I am concerned for notable cellulitis and worsening infection on his scrotum, with borderline early potential Stan's gangrene. I did contact [facility] and discussed the case with her surgeon Dr. Ng, and after review of the case labs and findings, he has agreed for transfer. Patient will be transferred to the emergency department where he will be evaluated by the surgical team. Discussed the case with the ED physician on-call, transfer has been accepted. I have extensively reviewed the treatment plan with the patient. I have addressed all patient concerns at this time. I have also discussed the plan with the admitting physician and they agree with the current assessment and plan and have agreed to assume responsibility for the patient. All parties demonstrate verbal understanding and agreement with our assessment and plan at this time. The documentation in this chart was dictated using [employer] dictation software. Please excuse any dictation errors. At time of transfer the patient was reassessed and continued to demonstrate No signs of acute respiratory distress requiring intubation, hemodynamic instability requiring pressor support, or rapidly declining mental status. FINDINGS: Tubes, catheters and devices: Arguello catheter with balloon inflated in the penile urethra. See sagittal series 9: Image 90. This will need repositioning. Lungs: Lung bases are clear. Pleural spaces: No pleural effusion. Heart: Normal heart size. No pericardial effusion. No coronary artery atherosclerotic calcium Liver: Diffuse moderate fatty liver change and mild hepatic enlargement. Gallbladder and bile ducts: Normal. No calcified stones. No ductal dilation. Pancreas: Mild pancreatic atrophy. No acute inflammatory change. Spleen: Splenomegaly with 16 cm AP length of spleen. Adrenal glands: The adrenal glands are normal in size and contour bilaterally. Kidneys and ureters: The kidneys bilaterally are unremarkable. Normal attenutation. No hydronephrosis. No calculi. Stomach and bowel: Gastric morphology is unremarkable. No edema. No gastric outlet obstruction. Small sliding hiatal hernia. No acute change. Small bowel loops are normal in course and caliber. There is no mucosal edema or bowel wall thickening. No obstructive features. No acute large bowel pathology. Formed feces. No edema. No mechanical obstruction evident. Appendix: No evidence of appendicitis. Intraperitoneal space: No free fluid. No free air. Vasculature: Unremarkable. No abdominal aortic aneurysm. Lymph nodes: Bilateral enlarged inguinal lymph nodes. Largest right node is 3.7 x 2.8 cm. Largest left node is 2.7 x 2.5 cm. Urinary bladder: Urinary bladder contains air. Recommend correlation with urinalysis. Can not exclude UTI. Reproductive: Unremarkable as visualized. Bones/joints: No acute skeletal change. Old right hip pathology with surgical changes. Recommend clinical correlation. This may be related to previous trauma or possibly avascular necrosis of the femoral head. Extensive multilevel thoracolumbar spine fusion. Transpedicular screws and bilateral Lloyd rods. Soft tissues: Severe scrotal wall edema. This is nonspecific in appearance. No scrotal wall gas. No soft tissue gas of the perineum. Right lower extremity intramuscular calcium suggesting myositis ossificans. IMPRESSION: 1. Severe scrotal wall edema without soft tissue emphysema changes. No soft tissue gas within the perineum. 2. Bilateral inguinal lymphadenopathy. 3. Arguello catheter with balloon inflated in the penile urethra. This will need repositioning. See sagittal series 9: Image 92. 4. Air within the urinary bladder. This might be related to the Arguello catheter attempt. Can not exclude cystitis. Recommend correlation with urinalysis. 5. Fatty liver and mild hepatic enlargement. 6. Splenomegaly. 7. Pancreatic atrophy. 8. No acute bowel pathology. 9. Chronic right hip and femoral head disease with surgical changes. 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 Thank you for allowing us to participate in the care of your patient FINDINGS: Bones/joints: Tibial medullary isiah suggesting previous fracture repair. Old fibular neck fracture which has healed. No acute erosive changes. Soft tissues: Subcutaneous fatty stranding of the right lower extremity. This is circumferential. This is consistent with a cellulitis process. There is moderate to severe edema of the dorsum of the foot. Also consistent with a cellulitis type process. There is no soft tissue emphysema. There is no abscess. There is no deep compartment fluid or gas. The musculature of the right lower extremity is atrophied suggesting this patient may have a lower extremity paralysis. IMPRESSION: 1. Features of cellulitis of the right lower leg and dorsum of the foot. No soft tissue gas or abscess. 2. No evidence of acute osteomyelitis. Tibial medullary isiah suggesting previous fracture repair. 3. Muscular atrophy with appearance suggesting patient has lower extremity paralysis. Thank you for allowing us to participate in the care of your patient. Dictated and Authenticated by: Kevin Dominguez MD Quality:[facility] Health Related Social Needs: 2 No Data to Display Discharge Plan Disposition Patient Disposition: Transfer-Acute Inpatient Care Specific Acute Inpt Facility: [facility] Condition: Stable Discharge Details Chief Complaint: Cellulitis Clinical Impression: Cellulitis of scrotum, Arguello catheter problem Primary Care Provider: Juan Carlos Gomez ED Provider: Jayesh Bedoya Home Meds and New Rx's Prescriptions: No Action amitriptyline 10 mg tablet 10 - 20 mg PO QHS ranitidine HCl 150 mg capsule 150 mg PO BID oxybutynin chloride 5 mg tablet 5 mg PO TID gabapentin 600 mg tablet 1,200 mg PO TID baclofen 20 mg tablet 50 mg PO TID hydrocodone-acetaminophen 5-325 mg tablet 1 tab PO Q6H PRN morphine 15 mg tablet extended release 15 mg PO Q12H PRN
[2023-02-27 23:13] VITALS: TEMP 36.9
[2023-02-27 23:13] LABS: Abs Immature Grans 0.04 10^3/uL (0.0-0.06); Absolute Basophil Count 0.04 10^3/uL (0.0-0.2); Absolute Eosinophil Count 0.26 10^3/uL (0.0-0.7); Absolute Monocyte Count 0.67 10^3/uL (0.1-0.8); Basophils % 0.4; Eosinophils % 2.3; HCT 32.6 % (40.0-50.0); HGB 9.8 g/dL (13.5-17.5); Immature Grans % 0.4; Lactate 1.1 mmol/L (0.6-1.4); Lymphocytes % 22.1; MCHC 30.1 % (32.0-36.0); MCV 80 fL (80-95); MPV 10.4 fL (8.0-11.0); Neutrophils % 68.8; Platelet Count 369 10^3/uL (130-400); RBC 4.09 10^6/uL (4.36-5.78); RDW 18.2 % (11.8-14.1)
[2023-02-27] MEDS: ACETAMINOPHEN 1,000 MG/100 ML BTL 400 MG IVPB (23:13)
[2023-02-27 23:14] LABS: Absolute Lymphocyte Count 2.48 10^3/uL (1.2-3.4); Absolute Neutrophil Count 7.71 10^3/uL (1.2-6.7)
[2023-02-27 23:15] LABS: ESR 78 mm/hr (0-15)
[2023-02-27] MEDS: HYDROmorphone 2 MG/ML SYR 1 MG IVP ×2 (23:15→23:48)
[2023-02-27 23:19] VITALS: BP 152/95; PULSE 103; RESP 20; TEMP 36.9; O2SAT 92
[2023-02-27 23:29] LABS: C-Reactive Protein 9.85 mg/dL (0.0-0.3)
--- NOTE | 2023-02-27 23:30 | DI.CT_ITS ---
Exam(s) CT LOWER EXTREMITY RT W EXAM: CT LOWER EXTREMITY RT W CLINICAL HISTORY: infection. TECHNIQUE: Imaging Protocol: Axial computed tomography images with coronal and sagittal reformatted images were created and reviewed. CONTRAST MATERIAL: Intravenous: Omnipaque 350 Contrast volume:structured data in ml Contrast route:I V - Oral: yes / no COMPARISON: No exams were available for comparison FINDINGS: SOFT TISSUES: There is a diffuse cellulitis pattern in the calf. Extends into the foot. There is no localized abscess evident. There is atrophy of the musculature of the calf evident. OSSEOUS: There is a long intramedullary jd in the tibia. No evidence of acute fracture and no evide nce of osteomyelitis. In degenerative changes in the medial compartment of the knee are noted. Ther e is no tibial plateau fracture. There is a healed fracture of the fibular neck noted. Also healed slightly lower than midshaft fracture of the tibia. Degenerative narrowing of the ankle-tibiotalar j oint. No focal findings in the talar dome. IMPRESSION: Cellulitis pattern in the calf, ankle, and foot. The most prominent soft tissue swelling is over the dorsal aspect of the foot. There is no formed focal abscess evident. No radiopaque foreign body. There is no evidence of osteomyelitis. There are no fractures evident. There is a long intramedulla ry jd in the tibia across healed fracture site and there is a healed fracture site in the proximal f ibula. RADIATION DOSE DELIVERED: 491.05mGy.cm Total DLP DATA REPOSITORY: All CT scans at this facility are submitted to the National Radiology Data Registry (NRDR) Dose Index Registry (DIR) with the [employer] (ACR). RADIATION OPTIMIZATION: All CT scans at this facility use at least one of these dose optimization te chniques: automated exposure control; mA and/or kV adjustment per patient size (includes targeted exa ms where dose is matched to clinical indication); or iterative reconstruction.
[2023-02-27 23:31] LABS: ALT 16 U/L (16-63); AST 15 U/L (15-37); Albumin 2.8 g/dL (3.4-5.0); Alkaline Phosphatase 48 U/L (46-116); Anion Gap 5.1 mmol/L (3-11); BUN 9 mg/dL (7-18); Bilirubin, Total 0.4 mg/dL (0.2-1.0); CO2 34.9 mmol/L (21.0-32.0); CREATININE 0.7 mg/dL (0.70-1.30); Calcium 8.7 mg/dL (8.5-10.1); Chloride 100 mmol/L (98-107); Glucose 93 mg/dL (74-106); Potassium 3.8 mmol/L (3.5-5.1); Sodium 140 mmol/L (136-145); Total Protein 7.9 g/dL (6.4-8.2)
[2023-02-27 23:49] VITALS: BP 152/95; PULSE 95; RESP 20; TEMP 36.9; O2SAT 97
[2023-02-27 23:50] LABS: Procalcitonin < 0.1 ng/mL
[2023-02-28] VITALS (16 sets, daily range): BP systolic 129; BP diastolic 68; PULSE 97; O2SAT 89–97
[2023-02-28] MEDS: Omnipaque 350 MG/ML 100 ML BTL IJ (00:06)
[2023-02-28] MEDS: Normal Saline - Diluent 50 ML VIAL IJ (00:07)
--- NOTE | 2023-02-28 00:34 | DI.VRAD_ITS ---
Addendum created by Kevin Dominguez MD on 02/28/2023 12:39:43 AM EST: THIS REPORT CONTAINS FINDINGS THAT MAY BE CRITICAL TO PATIENT CARE. The findings were verbally communicated via telephone conference with KAN JURADO at 12:38 AM EST on 02/28/2023. The findings were acknowledged and understood. Discussion regarding malpositioned Arguello catheter and air within the urinary bladder. Patient is paraplegic. This Arguello catheter has been in this position since prior to presentation to the hospital. Also discussed the severe scrotal wall edema without features of soft tissue emphysema. Initial report created on 02/28/2023 12:33:44 AM EST: PROCEDURE INFORMATION: Exam: CT Abdomen And Pelvis With Contrast Exam date and time: 02/27/2023 11:28 PM Age: 32 years old Clinical indication: Condition or disease; Other: Large scrotal lesion; Other: Edema TECHNIQUE: Imaging protocol: Computed tomography of the abdomen and pelvis with contrast. Contrast material: OMNIPAQUE 350; Contrast volume: 100 ml; Contrast route: INTRAVENOUS (IV); COMPARISON: CR XR PORTABLE CHEST AP 02/08/2023 10:31 PM FINDINGS: Tubes, catheters and devices: Arguello catheter with balloon inflated in the penile urethra. See sagittal series 9: Image 90. This will need repositioning. Lungs: Lung bases are clear. Pleural spaces: No pleural effusion. Heart: Normal heart size. No pericardial effusion. No coronary artery atherosclerotic calcium. Liver: Diffuse moderate fatty liver change and mild hepatic enlargement. Gallbladder and bile ducts: Normal. No calcified stones. No ductal dilation. Pancreas: Mild pancreatic atrophy. No acute inflammatory change. Spleen: Splenomegaly with 16 cm AP length of spleen. Adrenal glands: The adrenal glands are normal in size and contour bilaterally. Kidneys and ureters: The kidneys bilaterally are unremarkable. Normal attenutation. No hydronephrosis. No calculi. Stomach and bowel: Gastric morphology is unremarkable. No edema. No gastric outlet obstruction. Small sliding hiatal hernia. No acute change. Small bowel loops are normal in course and caliber. There is no mucosal edema or bowel wall thickening. No obstructive features. No acute large bowel pathology. Formed feces. No edema. No mechanical obstruction evident. Appendix: No evidence of appendicitis. Intraperitoneal space: No free fluid. No free air. Vasculature: Unremarkable. No abdominal aortic aneurysm. Lymph nodes: Bilateral enlarged inguinal lymph nodes. Largest right node is 3.7 x 2.8 cm. Largest left node is 2.7 x 2.5 cm. Urinary bladder: Urinary bladder contains air. Recommend correlation with urinalysis. Can not exclude UTI. Reproductive: Unremarkable as visualized. Bones/joints: No acute skeletal change. Old right hip pathology with surgical changes. Recommend clinical correlation. This may be related to previous trauma or possibly avascular necrosis of the femoral head. Extensive multilevel thoracolumbar spine fusion. Transpedicular screws and bilateral Lloyd rods. Soft tissues: Severe scrotal wall edema. This is nonspecific in appearance. No scrotal wall gas. No soft tissue gas of the perineum. Right lower extremity intramuscular calcium suggesting myositis ossificans. IMPRESSION: 1. Severe scrotal wall edema without soft tissue emphysema changes. No soft tissue gas within the perineum. 2. Bilateral inguinal lymphadenopathy. 3. Arguello catheter with balloon inflated in the penile urethra. This will need repositioning. See sagittal series 9: Image 92. 4. Air within the urinary bladder. This might be related to the Arguello catheter attempt. Can not exclude cystitis. Recommend correlation with urinalysis. 5. Fatty liver and mild hepatic enlargement. 6. Splenomegaly. 7. Pancreatic atrophy. 8. No acute bowel pathology. 9. Chronic right hip and femoral head disease with surgical changes. 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 Dictated and Authenticated by: Kevin Dominguez MD. Ordering:HERBERT Mcconnell MD
--- NOTE | 2023-02-28 00:37 | DI.VRAD_ITS ---
PROCEDURE INFORMATION: Exam: CT Right Lower Extremity With Contrast Exam date and time: 02/27/2023 11:39 PM Age: 32 years old Clinical indication: Cellulitis; Foot and lower leg and toes; Right TECHNIQUE: Imaging protocol: CT of the right lower extremity with intravenous contrast was performed. Contrast material: OMNIPAQUE 350; Contrast volume: 100 ml; Contrast route: INTRAVENOUS (IV); COMPARISON: No relevant prior studies available. FINDINGS: Bones/joints: Tibial medullary jd suggesting previous fracture repair. Old fibular neck fracture which has healed. No acute erosive changes. Soft tissues: Subcutaneous fatty stranding of the right lower extremity. This is circumferential. This is consistent with a cellulitis process. There is moderate to severe edema of the dorsum of the foot. Also consistent with a cellulitis type process. There is no soft tissue emphysema. There is no abscess. There is no deep compartment fluid or gas. The musculature of the right lower extremity is atrophied suggesting this patient may have a lower extremity paralysis. IMPRESSION: 1. Features of cellulitis of the right lower leg and dorsum of the foot. No soft tissue gas or abscess. 2. No evidence of acute osteomyelitis. Tibial medullary jd suggesting previous fracture repair. 3. Muscular atrophy with appearance suggesting patient has lower extremity paralysis. Dictated and Authenticated by: Kevin Dominguez MD. Ordering:IGOR Irizarry MD
[2023-02-28] MEDS: PIPERACILLIN/TAZO 4.5 GM in Normal Saline 100 ML IVPB (00:41)
[2023-02-28] MEDS: DOXYCYCLINE 100 MG in Normal Saline 100 ML IVPB (02:42)
[2023-02-28] MEDS: HYDROmorphone 2 MG/ML SYR 1 MG IVP (03:10)
== END 2023-02-28 03:30 | disposition short-term general hospital (02) ==
PROVIDERS: Emergency Provider Student in an Organized Health Care Education/Training Program; PCP Family Medicine
DX: N49.2 Inflammatory disorders of scrotum (principal); L89.624 Pressure ulcer of left heel, stage 4; L89.310 Pressure ulcer of right buttock, unstageable; L89.320 Pressure ulcer of left buttock, unstageable; G82.20 Paraplegia, unspecified; E66.9 Obesity, unspecified; R59.0 Localized enlarged lymph nodes; T83.9XXA Unspecified complication of genitourinary prosthetic device, implant and graft, initial encounter; R16.1 Splenomegaly, not elsewhere classified; K86.89 Other specified diseases of pancreas
CPT/HCPCS: 36415; 80053; 84145; 85652; 87040; 96365; 96366; 96367; 96375; 96376; 99285; 73701; 74177; 83605; 85025; 86140; 87070; 87205; J0131; J1170; J2543; J3370; J3490

== ENCOUNTER 2023-10-27 10:19 | Outpatient (REF) | payer MEDICAID, SELFPAY ==
[2023-10-27 16:27] LABS: C & S Indicated? C&S Done As Ordered; WBC >50 HPF (0-5)
== END 2023-10-27 10:20 | disposition home or self-care (01) ==
LOC: LBN 10:19
PROVIDERS: PCP Nurse Practitioner Family; Visit Provider Nurse Practitioner Family
DX: R82.998 Other abnormal findings in urine (principal); R82.90 Unspecified abnormal findings in urine; R31.29 Other microscopic hematuria
CPT/HCPCS: 87077; 81015; 87086; 87186

== ENCOUNTER 2024-03-28 22:19 | Inpatient (IN) | payer MEDICAID, SELFPAY ==
[2024-03-28] VITALS (14 sets, daily range): BP systolic 119–163; BP diastolic 71–89; PULSE 96–115; RESP 14–52; TEMP 37.8; O2SAT 90–98
--- NOTE | 2024-03-28 22:30 | DI.CT_ITS ---
Exam(s) CT THORACIC LUMBAR SPINE REC EXAM: CT THORACIC LUMBAR SPINE REC CLINICAL HISTORY: severe back pain, quad, fever, eval abscess TECHNIQUE: COMPARISON: CT CT CHEST/ABD/PEL W from 03/28/2024 FINDINGS: THORACIC SPINAL COLUMN: Limited study as T1-T3 are not included in the field of view. There is posterior fusion at T8-L1 levels and the surgical hardware appears intact no evidence of loo sening nor migration. There are no fractures of the visualized thoracic vertebrae. No listhesis. No facet malalignment. No obvious abnormal fluid collections. No significant osseous lesions. LUMBOSACRAL SPINAL COLUMN: Hardware as above. Lowermost intrapedicular screws are at L1 level. No evidence of fracture or listhesis. Normal disc height at all levels. No obvious disc herniations nor central canal stenosis.. No osseous lesions. No abnormal fluid collections identified. IMPRESSION: There is posterior fusion hardware T8-L1 levels which appears intact. No acute osseous findings. No listhesis. No obvious abnormal fluid collections. Given the history here if clinically indicated follow-up contrast infused MRI can be performed for ad ded sensitivity/specificity.
--- NOTE | 2024-03-28 22:30 | DI.CT_ITS ---
Exam(s) CT CHEST/ABD/PEL W EXAM: CT CHEST/ABD/PEL W CLINICAL HISTORY: severe mid-low back pain, Quad, septic,. TECHNIQUE: Imaging Protocol: Axial computed tomography images with coronal and sagittal reformatted images were created and reviewed CONTRAST MATERIAL: Intravenous: Omnipaque 350 Contrast volume:100 ml Oral: None COMPARISON: CT CT ABDOMEN PELVIS W from 02/27/2023 FINDINGS: CHEST: LUNGS: Lung apices are not included in the field of view.. Some scarring is noted in the right upper lobe extending from the suprahilar region to the lateral pleural surface of the right upper lobe. T here are mild pleural based increased markings in the left lower lobe. No confluent infiltrates. No pleural effusions. MEDIASTINUM: No hilar adenopathy. No adenopathy in the partially included anterior mediastinal fat. Most upper mediastinum is not included in the field of view. Few small subcarinal lymph nodes are n oted. CARDIAC: Heart size is normal. There is no pericardial effusion.Caliber of the thoracic aorta is wit hin normal limits. OSSEOUS: Posterior fusion hardware T8-L1. No obvious hardware loosening. No evidence of osteomyelit is. No fractures. No thoracic vertebral listhesis.. ABDOMEN: There is no ascites. No free intraperitoneal air. LIVER: Hepatic steatosis but no discrete focal hepatic lesions nor dilatation of intrahepatic ducts. GALLBLADDER/BILIARY: Subtle density in the gallbladder is probably gallstone. However, there is no g allbladder wall edema nor pericholecystic fluid. CBD is not dilated. PANCREAS: No evidence of pancreatic mass nor dilatation of the pancreatic duct. SPLEEN: Mild splenomegaly. Craniocaudal measurement of the spleen is 14.5 cm. There are no discrete focal splenic lesions evident. Splenic and portal veins are patent. ADRENALS: There are no significant adrenal masses. KIDNEYS: No calculi nor hydronephrosis. No solid renal masses. No cysts evident. ABDOMINAL AORTA: Abdominal aorta is not enlarged. LYMPH NODES: There is no retroperitoneal nor paraaortic adenopathy. ABDOMINAL WALL: No evidence of significant anterior abdominal wall nor inguinal hernia. No abnormal subcutaneous collections in the anterior abdominal wall. GI: There is no evidence of bowel obstruction. PELVIS: LYMPH NODES: There is adenopathy along the right iliac chain and also in the right groin. Enlarged l ymph nodes are also evident in the left groin/inguinal region.. GI: No evidence of appendicitis.No evidence of sigmoid diverticulitis.Redundant sigmoid. URINARY BLADDER: There is a Arguello catheter with its distal tip in the penile urethra not in the urina ry bladder. The bladder is not overly distended. Ureters are not dilated. REPRODUCTIVE: Prostate size normal. Seminal vesicles unremarkable. OSSEOUS: Chronic fracture deformity is right hip and pelvis. . There are decubitus ulcers. On the left side there is a tract extending inwards towards the in ferior left pubic ramus and the appearance of the inferior pubic ramus and left ischial tuberosity is somewhat different than on the previous scan and suspicious for possible osteomyelitis. There is a decubitus ulcer suspicion also in the right buttock region. Tract heading towards the scr otal sac. There is some skin thickening and fluid accumulation in the posterior aspect of the scrota l sac. This appears continuous with a tract from the skin. The right ischial tuberosity and inferior pubic ramus appear unremarkable. Sacrum and coccyx are int act. IMPRESSION: 1. There are decubitus ulcers bilaterally as well as 1 related to the posterior scrotal sac with trac t towards the posterior scrotal sac and findings within the posterior scrotal sac concerning for infl ammation. 2. In addition, there is a tract from the skin towards the inferior pubic ramus on the left side and there is increased density now evident throughout the left inferior pubic ramus concerning for osteom yelitis. 3. There is inguinal adenopathy as well as right intrapelvic adenopathy. 4. Chronic right hip and right teressa pelvic osseous deformities. Related to prior trauma. Also multi level fusion hardware T8-L1 poles which appears intact. 5. Hepatic steatosis and mild hepatomegaly. Also mild splenomegaly. 6. Cholelithiasis without evidence of obvious acute cholecystitis nor dilatation of the biliary tree .. 7. The Arguello catheter requires repositioning into the urinary bladder. The distal tip of the Arguello catheter is presently within the penile urethra. First read by [facility]. Final report called by myself to ER physician 03/29/2024 at 9 a.m. Final report also called by myself to physician hospitalist 03/29/2024 9:05 a.m. RADIATION DOSE DELIVERED: 2,122.1mGy.cm Total DLP DATA REPOSITORY: All CT scans at this facility are submitted to the National Radiology Data Registry (NRDR) Dose Index Registry (DIR) with the [employer] ([employer]). RADIATION OPTIMIZATION: All CT scans at this facility use at least one of these dose optimization te chniques: automated exposure control; mA and/or kV adjustment per patient size (includes targeted exa ms where dose is matched to clinical indication); or iterative reconstruction.
[2024-03-28 22:39] LABS: Lactate 1.2 mmol/L (<or=2.0)
[2024-03-28] MEDS: LORazepam 2 MG/ML VIAL 1 MG IVP (22:40)
[2024-03-28] MEDS: Ketorolac 15 MG/ML VIAL IVP (22:40)
[2024-03-28 22:41] LABS: Abs Immature Grans 0.02 10^3/uL (0.0-0.06); Absolute Basophil Count 0.03 10^3/uL (0.0-0.2); Absolute Eosinophil Count 0.07 10^3/uL (0.0-0.7); Absolute Monocyte Count 0.57 10^3/uL (0.1-0.8); Absolute Neutrophil Count 6.11 10^3/uL (1.2-6.7); Basophils % 0.4 %; Eosinophils % 0.9 %; HCT 33.9 % (40.0-50.0); HGB 10.4 g/dL (13.5-17.5); Immature Grans % 0.3 %; Lymphocytes % 11.7 %; MCH 24.6 pg (27.0-33.0); MCHC 30.7 % (32.0-36.0); MCV 80 fL (80-95); MPV 11.2 fL (8.0-11.0); Monocytes % 7.4 %; Neutrophils % 79.3 %; Platelet Count 203 10^3/uL (130-400); RBC 4.22 10^6/uL (4.36-5.78); RDW 16.6 % (11.8-14.1); RDW-SD 48.2 fL
[2024-03-28 22:57] LABS: ALT 22 U/L (16-63); AST 19 U/L (15-37); Albumin 2.8 g/dL (3.4-5.0); Alkaline Phosphatase 51 U/L (46-116); Anion Gap 4.6 mmol/L (3-11); BUN 14 mg/dL (7-18); Bilirubin, Total 0.46 mg/dL (0.2-1.0); CO2 30.4 mmol/L (21.0-32.0); CREATININE 0.7 mg/dL (0.70-1.30); Calcium 8.7 mg/dL (8.5-10.1); Chloride 101 mmol/L (98-107); Estimated GFR 123.23 (mL/min/1.73m2); Glucose 91 mg/dL (74-106); Potassium 4.3 mmol/L (3.5-5.1); Sodium 136 mmol/L (136-145); Total Protein 7.9 g/dL (6.4-8.2)
[2024-03-28] MEDS: MORPHine 4 MG/ML SYR IVP (22:58)
[2024-03-28 23:08] LABS: Procalcitonin 0.13 ng/mL
[2024-03-28 23:10] LABS: Bilirubin Negative (Negative); Blood Moderate (Negative); Clarity Cloudy (Clear); Glucose Negative (Negative); Ketones Negative (Negative); Leukocyte Esterase Small (Negative); Nitrite Negative (Negative); Specific Gravity >= 1.030 (1.005-1.025); Urobilinogen 0.2 mg/dL (Up to 0.2); pH 6.5 (5-8)
[2024-03-28 23:24] LABS: Bacteria Few HPF (Negative); Crystals Negative HPF (Negative); Epithelial Cells Rare HPF (Negative)
[2024-03-28 23:26] LABS: C & S Indicated? C&S Done As Ordered; Casts 0-2 Fine Granular LPF (Negative); Mucus Trace (Negative)
[2024-03-28] MEDS: Omnipaque 350 MG/ML 100 ML BTL IJ (23:44)
[2024-03-28] MEDS: Normal Saline - Diluent 50 ML VIAL IJ (23:44)
[2024-03-28] MEDS: Normal Saline Flush 10 ML SYR IVP (23:45)
[2024-03-28 23:52] LABS: COVID-19 PCR Negative (Negative); Influenza A PCR Negative (Negative); Influenza B PCR Negative (Negative); RSV PCR Negative (Negative)
[2024-03-28 23:53] LABS: Source Nasopharynx
[2024-03-29] VITALS (34 sets, daily range): BP systolic 102–163; BP diastolic 52–98; PULSE 74–100; RESP 13–43; TEMP 36–36.8; O2SAT 80–99
[2024-03-29] MEDS: MORPHine 4 MG/ML SYR IVP ×7 (00:22→23:15)
[2024-03-29] MEDS: VANCOMYCIN 2,000 MG in Normal Saline 500 ML 333.3333 MG IVPB (00:45)
[2024-03-29] MEDS: PIPERACILLIN/TAZO 3.375 GM in Normal Saline 50 ML IVPB ×3 (00:45→22:02)
--- NOTE | 2024-03-29 01:24 | DI.VRAD_ITS ---
PROCEDURE INFORMATION: Exam: CT Chest With Contrast; Diagnostic Exam date and time: 03/28/2024 11:39 PM Age: 33 years old Clinical indication: Abdominal pain; Other: Low back pain, septic; Prior surgery; Surgery date: 6+ months; Surgery type: Spine, pelvis; Severe mid-low back pain, quad, septic, TECHNIQUE: Imaging protocol: Diagnostic computed tomography of the chest with contrast. Radiation optimization: All CT scans at this facility use at least one of these dose optimization techniques: automated exposure control; mA and/or kV adjustment per patient size (includes targeted exams where dose is matched to clinical indication); or iterative reconstruction. Contrast material: OMNIPAQUE 350; Contrast volume: 100 ml; Contrast route: INTRAVENOUS (IV); Other technique: Study is limited as apical portions of each lung are not included in the scan volume. COMPARISON: CR XR PORTABLE CHEST AP 02/08/2023 10:31 PM FINDINGS: Lungs: Scarring in right upper lobe and both lower lobes. No dense parenchymal consolidation. Pleural spaces: No pneumothorax or pleural effusion. Heart: Heart normal in size. Coronary arteries: No coronary artery calcification. Lymph nodes: No adenopathy. Vasculature: No aortic aneurysm or dissection. Bones/joints: Status post T8 through L1 posterior fusion procedure. The spine demonstrates mild degenerative changes at multiple levels. Soft tissues: Unremarkable. IMPRESSION: No acute findings. PROCEDURE INFORMATION: Exam: CT Abdomen And Pelvis With Contrast Exam date and time: 03/28/2024 11:39 PM Age: 33 years old Clinical indication: Abdominal pain; Other: Low back pain, septic; Prior surgery; Surgery date: 6+ months; Surgery type: Spine, pelvis; Severe mid-low back pain, quad, septic, TECHNIQUE: Imaging protocol: Computed tomography of the abdomen and pelvis with contrast. Radiation optimization: All CT scans at this facility use at least one of these dose optimization techniques: automated exposure control; mA and/or kV adjustment per patient size (includes targeted exams where dose is matched to clinical indication); or iterative reconstruction. Contrast material: OMNIPAQUE 350; Contrast volume: 100 ml; Contrast route: INTRAVENOUS (IV); COMPARISON: CT ABDOMEN PELVIS W 02/27/2023 11:28 PM FINDINGS: Liver: Hepatomegaly.There is diffuse decrease in hepatic parenchymal density, consistent with moderate fatty infiltration. No mass. Gallbladder and biliary ducts: Small gallstones. No biliary ductal dilatation. Pancreas: Normal. No ductal dilation. Spleen: Normal. No splenomegaly. Adrenal glands: Normal. No mass. Kidneys and ureters: Normal. No hydronephrosis. Stomach and bowel: A dilated segments of small bowel or colonic dilatation. Appendix: No evidence of appendicitis. Intraperitoneal space: Unremarkable. No free air. No significant fluid collection. Vasculature: Unremarkable. No abdominal aortic aneurysm. Lymph nodes: Unremarkable. No enlarged lymph nodes. Urinary bladder: No bladder wall thickening or perivesical fat stranding. Tip of Arguello catheter is in the penile urethra. Reproductive: Dependent fluid accumulation in scrotal sac. Bones/joints: Chronic deformity of right hip with surgical screws in the proximal femur and acetabulum sclerosis in distal aspect left superior pubic ramus, Soft tissues: Extensive infiltration of subcutaneous fat inferiorly in right buttock about an invagination in skin consistent with a decubitus ulcer or deep fold in the skin. IMPRESSION: 1. Suboptimal positioning of Arguello catheter with tip in penile urethra. 2. Infiltration of subcutaneous fat inferiorly in right buttock about an invagination in skin which could be due to decubitus ulcer or deep fold in the skin. Correlate clinically to the area. 3. Hepatomegaly. 4. Hepatic steatosis. 5. Gallstones. 6. Dependent fluid accumulation and scrotal sac. Dictated and Authenticated by: Adin Turpin MD. Orderin Elke Mcconnell MD
--- NOTE | 2024-03-29 01:38 | DI.VRAD_ITS ---
PROCEDURE INFORMATION: Exam: CT Thoracic Spine Without Contrast Exam date and time: 03/28/2024 11:39 PM Age: 33 years old Clinical indication: Other: Mid back pain, septic; Pain in thoracic spine; Without myelpathy or radiculopathy; Prior surgery; Surgery date: 6+ months; Severe back pain, quad, fever, eval abscess TECHNIQUE: Imaging protocol: Computed tomography of the thoracic spine without contrast. Study is limited as the T1 through T3 vertebrae are not included in the scan volume Radiation optimization: All CT scans at this facility use at least one of these dose optimization techniques: automated exposure control; mA and/or kV adjustment per patient size (includes targeted exams where dose is matched to clinical indication); or iterative reconstruction. COMPARISON: CT CHEST/ABD/PEL W 03/28/2024 11:39 PM FINDINGS: Bones/joints: No acute fracture. Normal alignment. Kyphosis maintained. Minimal multilevel hypertrophic endplate changes. Status post posterior fusion at the T8 through L1 levels. Surgical hardware appears intact. No CT findings for screw loosening. No significant disc bulge or herniation. No severe spinal canal stenosis. No significant neural foraminal narrowing. Soft tissues: Unremarkable. IMPRESSION: 1. Limited study. 2. No acute fracture or subluxation. 3. Prior surgery. Accentuation of lumbar lordosis. PROCEDURE INFORMATION: Exam: CT Lumbar Spine Without Contrast Exam date and time: 03/28/2024 11:39 PM Age: 33 years old Clinical indication: Other: Mid back pain, septic; Pain in thoracic spine; Without myelpathy or radiculopathy; Prior surgery; Surgery date: 6+ months; Severe back pain, quad, fever, eval abscess TECHNIQUE: Imaging protocol: Computed tomography of the lumbar spine without contrast. Radiation optimization: All CT scans at this facility use at least one of these dose optimization techniques: automated exposure control; mA and/or kV adjustment per patient size (includes targeted exams where dose is matched to clinical indication); or iterative reconstruction. COMPARISON: CT CHEST/ABD/PEL W 03/28/2024 11:39 PM FINDINGS: Bones/joints: No acute fracture. Normal alignment. No significant disc bulge or herniation. No severe spinal canal stenosis. No significant neural foraminal narrowing. Soft tissues: Unremarkable. IMPRESSION: No acute fracture or subluxation. Dictated and Authenticated by: Adni Turpin MD. Orderin Elke Mcconnell MD
--- NOTE | 2024-03-29 01:45 | ED.GENADUL_ITS ---
Discharge Plan Disposition Patient Disposition: Admit to [facility] Condition: Improving Discharge Details Chief Complaint: GenMedical Clinical Impression: Sepsis, Urinary tract infection, Scrotal ulcer, Decubitus ulcer Admit Date/Time: 03/29/24 02:42 Admit Provider: Abelino Charles Attending Provider: Abelino Charles Primary Care Provider: Clarissa Hunt ED Provider: Jayesh Bedoya HPI General Date/Time Provider Initiated Documentation: 03/28/24 23:31 . HPI Narrative: This is a 33-year-old male with past medical history of paraplegia, chronic ulcers in his sacrum and lower extremities and scrotum, previous DVT which resolved with blood thinners, chronic severe back pain, neurogenic bladder with chronic Arguello, bipolar, MRSA infection, previous carbapenem resistant urine infection, with previous admissions to [facility], [facility], and [facility]. Who presents today for evaluation of fever. Patient was recently at [facility] about a week ago, he was found to have a urinary tract infection, he was treated with Cipro and discharged. He had noted an improvement of his aches and chills and fever, however 2 days ago they began to return again, today was his last day of his Cipro. As he continued to have a fever he contacted EMS and was brought to the emergency department for further assessment. He admits to chronic low back pain, as well as chronic scrotal pain. He denies any vomiting. No other complaints at this time. Related Data Home Medications ?Medication ?Instructions ?Recorded ?Confirmed Unknown [No Known Home Meds] 03/29/24 03/29/24 Allergies Allergy/AdvReac Type Severity Reaction Status Date / Time erythromycin base Allergy Intermediate Hives Verified 03/28/24 23:15 General Stated Complaint: GenMedical MAYA: 2 Exam Narrative Exam Narrative: 1.Const: Well-nourished, Well-developed, appearing stated age 2.Eyes: PERRL, no conjunctival injection, and symmetrical lids. 3.ENT: Atraumatic external nose and ears. Moist MM. Neck: Symmetric, trachea midline, No thyromegaly. 4.CVS: +S1/S2, Peripheral pulses 2+ and equal in all extremities. Brisk capillary refill in all extremities. 5.RESP: Unlabored respiratory effort. Clear to auscultation bilaterally. No wheezes rales or rhonchi 6.GI: Mild tenderness throughout his abdomen. No guarding. Unable to fully visualize the penis secondary to edema, genital size, and pannus 7.MSK: Feet do not show any evidence of acute ulcer. Legs do not move. Arm is functioning normally. 8.Skin: Patient demonstrates notably enlarged scrotum, but it appears smaller than in the past. Mild induration anteriorly without significant erythema. The remaining 9/10 of the scrotum is notably nonedematous, and shows some chronic redness with multiple chronic ulcers and skin breakdown. No abscess. No fluctuance. 9.Neuro: linoleum layer II-XII grossly intact. Sensation grossly intact, no focal neurologic deficits. 10.Psych: (AAO) x3. Appropriate mood and affect Course Vital Signs Vital signs: Vital Signs Pulse 114 H 03/28/24 22:22 Respiratory Rate 20 03/28/24 22:22 Pulse Oximetry 96 03/28/24 22:22 Temperature 37.8 C H 03/28/24 22:32 Temperature Source Oral 03/28/24 22:32 Pulse 90 03/29/24 01:10 Pulse 89 03/29/24 01:10 Respiratory Rate 34 H 03/29/24 01:10 Respiratory Effort Normal 03/28/24 22:59 Respiratory Depth Normal 03/28/24 22:59 Respiratory Pattern Normal 03/28/24 22:59 Blood Pressure 102/52 L 03/29/24 01:02 Blood Pressure Mean 62 03/29/24 01:02 Pulse Oximetry 95 03/29/24 01:10 Oxygen Delivery Method Room Air 03/28/24 22:32 Oxygen Flow Rate 0 03/28/24 22:32 Pain Level 7 03/29/24 00:22 Comment 2L NC 03/29/24 01:10 Lab/Test Results Lab/Test Results: 03/28/24 22:50 Blood Blood Culture - Pending 03/28/24 22:50 Urine - Cath Arguello Indwelling Urine Culture - Pending 03/28/24 22:26 Blood Blood Culture - Pending Laboratory Tests Range/Units 03/28/24 03/28/24 03/28/24 22:26 22:50 23:10 WBC (4.4-10.8) 10^3/uL 7.70 RBC (4.36-5.78) 10^6/uL 4.22 L Hgb (13.5-17.5) g/dL 10.4 L Hct (40.0-50.0) % 33.9 L MCV (80-95) fL 80 MCH (27.0-33.0) pg 24.6 L MCHC (32.0-36.0) % 30.7 L RDW (11.8-14.1) % 16.6 H Plt Count (130-400) 10^3/uL 203 MPV (8.0-11.0) fL 11.2 H Immature Gran % % 0.3 Neutrophils % % 79.3 Lymphocytes % % 11.7 Monocytes % % 7.4 Eosinophils % % 0.9 Basophils % % 0.4 Nucleated RBC % (0.0-0.3) % 0.0 Absolute Neutrophils (1.2-6.7) 10^3/uL 6.11 Absolute Lymphocytes (1.2-3.4) 10^3/uL 0.90 L Absolute Monocytes (0.1-0.8) 10^3/uL 0.57 Absolute Eosinophils (0.0-0.7) 10^3/uL 0.07 Absolute Basophils (0.0-0.2) 10^3/uL 0.03 VBG Lactate (<or=2.0) mmol/L 1.2 Sodium (136-145) mmol/L 136 Potassium (3.5-5.1) mmol/L 4.3 Chloride (98-107) mmol/L 101 Carbon Dioxide (21.0-32.0) mmol/L 30.4 Anion Gap (3-11) mmol/L 4.6 BUN (7-18) mg/dL 14 Creatinine (0.70-1.30) mg/dL 0.7 Est GFR (CKD-EPI 2020) (mL/min/1.73m2) 123.23 Glucose (74-106) mg/dL 91 Calcium (8.5-10.1) mg/dL 8.7 Total Bilirubin (0.2-1.0) mg/dL 0.46 AST (15-37) U/L 19 ALT (16-63) U/L 22 Alkaline Phosphatase (46-116) U/L 51 Total Protein (6.4-8.2) g/dL 7.9 Albumin (3.4-5.0) g/dL 2.8 L Procalcitonin ng/mL 0.13 Urine Color (Yellow) Yellow Urine Clarity (Clear) Cloudy Urine pH (5-8) 6.5 Ur Specific Broadbent (1.005-1.025) >= 1.030 H Urine Protein (Neg-Trace) mg/dL >=300 H Urine Ketones (Negative) mg/dL Negative Urine Blood (Negative) Moderate H Urine Nitrite (Negative) Negative Urine Bilirubin (Negative) Negative Urine Urobilinogen (Up to 0.2) mg/dL 0.2 Ur Leukocyte Esterase (Negative) Small H Urine RBC (0-2) HPF 10-20 H Urine WBC (0-5) HPF 10-20 H Ur Epithelial Cells (Negative) HPF Rare Urine Crystals (Negative) HPF Negative Urine Bacteria (Negative) HPF Few Urine Casts (Negative) LPF 0-2 Fine Granular Urine Mucus (Negative) Trace Ur Culture Indicated? C&S Done As Ordered Urine Glucose (Negative) mg/dL Negative COVID-19 Source Nasopharynx SARS-CoV-2 (PCR) (Negative) Negative Influenza Type A (PCR) (Negative) Negative Influenza Type B (PCR) (Negative) Negative RSV (PCR) (Negative) Negative Medical Decision Making This is a 33-year-old male with past medical history of paraplegia, chronic ulcers in his sacrum and lower extremities and scrotum, previous DVT which resolved with blood thinners, chronic severe back pain, neurogenic bladder with chronic Arguello, bipolar, MRSA infection, previous carbapenem resistant urine infection, with previous admissions to [facility], [facility], and [facility]. Who presents today for evaluation of fever. Patient was recently at [facility] about a week ago, he was found to have a urinary tract infection, he was treated with Cipro and discharged. He had noted an improvement of his aches and chills and fever, however 2 days ago they began to return again, today was his last day of his Cipro. As he continued to have a fever he contacted EMS and was brought to the emergency department for further assessment. He admits to chronic low back pain, as well as chronic scrotal pain. He denies any vomiting. No other complaints at this time. Exam demonstrates notably enlarged scrotum, but it appears smaller than in the past. Mild induration anteriorly without significant erythema. The remaining 9/10 of the scrotum is notably nonedematous, and shows some chronic redness with multiple chronic ulcers and skin breakdown. No abscess. No fluctuance. Otherwise lungs are clear, with no evidence of ulcers on the feet. He is febrile and tachycardic, concern for sepsis. Differential includes pneumonia, he does have a Arguello catheter that is within the panel tissue around the penis and scrotum, and currently moving urine. Urinary tract infection is certainly of concern. Cellulitis less likely as most of the findings appear notably chronic and not acute. Will get imaging, treat with vancomycin and Zosyn, treat his pain, monitor closely and reassess. 3 AM Laboratory workup has returned, no white count, hemoglobin 10.4, lactate normal, COVID flu and RSV negative. Electrolytes normal, procalcitonin 0.13 which is elevated. Urinalysis shows RBCs, WBCs and leuk esterase. Imaging shows no evidence of pneumonia, Arguello catheter appears to be within the penile urethra which is similar to his last CT scan. Due to the patient's habitus, and extreme challenges with previous implantation of Arguello catheter, I do not recommend acute change now until urology is available. He did receive antibiotics at this stage. CT imaging demonstrates atypical abnormality noted by the subcutaneous fat of the skin of the buttock that area. Concern for a large decubitus ulcer however clinically it appears to be a skin fold and not a large ulcer. That being said he certainly does have edema erythema and ulcers around the gluteal area, as well as the scrotum. Symptoms do not appear consistent with acute cellulitis however it certainly does appear to have more chronic component to it for the notable breakdown throughout back there. No subcutaneous gas or crepitus to suggest foreign years though. Urinary source seems to be the most concerning versus other atypical viral etiology. I do feel that the patient would benefit from continued antibiotics and admission secondary to his notable risk factors. Discussed the case with the hospitalist Dr. Charles, he agrees with the assessment and plan. Patient will be admitted. I have extensively reviewed the treatment plan with the patient. I have addressed all patient concerns at this time. I have also discussed the plan with the admitting physician and they agree with the current assessment and plan and have agreed to assume responsibility for the patient. All parties demonstrate verbal understanding and agreement with our assessment and plan at this time. The documentation in this chart was dictated using [employer] dictation software. Please excuse any dictation errors. FINDINGS: Lungs: Scarring in right upper lobe and both lower lobes. No dense parenchymal consolidation. Pleural spaces: No pneumothorax or pleural effusion. Heart: Heart normal in size. Coronary arteries: No coronary artery calcification. Lymph nodes: No adenopathy. Vasculature: No aortic aneurysm or dissection. Bones/joints: Status post T8 through L1 posterior fusion procedure. The spine demonstrates mild degenerative changes at multiple levels. Soft tissues: Unremarkable. FINDINGS: Liver: Hepatomegaly.There is diffuse decrease in hepatic parenchymal density, consistent with moderate fatty infiltration. No mass. Gallbladder and biliary ducts: Small gallstones. No biliary ductal dilatation. Pancreas: Normal. No ductal dilation. Spleen: Normal. No splenomegaly. Adrenal glands: Normal. No mass. Kidneys and ureters: Normal. No hydronephrosis. Stomach and bowel: A dilated segments of small bowel or colonic dilatation. Appendix: No evidence of appendicitis. Intraperitoneal space: Unremarkable. No free air. No significant fluid collection. Vasculature: Unremarkable. No abdominal aortic aneurysm. Lymph nodes: Unremarkable. No enlarged lymph nodes. Urinary bladder: No bladder wall thickening or perivesical fat stranding. Tip of Arguello catheter is in the penile urethra. Reproductive: Dependent fluid accumulation in scrotal sac. Bones/joints: Chronic deformity of right hip with surgical screws in the proximal femur and acetabulum sclerosis in distal aspect left superior pubic ramus, Soft tissues: Extensive infiltration of subcutaneous fat inferiorly in right buttock about an invagination in skin consistent with a decubitus ulcer or deep fold in the skin. IMPRESSION: 1. Suboptimal positioning of Arguello catheter with tip in penile urethra. 2. Infiltration of subcutaneous fat inferiorly in right buttock about an invagination in skin which could be due to decubitus ulcer or deep fold in the skin. Correlate clinically to the area. 3. Hepatomegaly. 4. Hepatic steatosis. 5. Gallstones. 6. Dependent fluid accumulation and scrotal sac. Thank you for allowing us to participate in the care of your patient. Dictated and Authenticated by: Adin Turpin DO 03/29/2024 1:24 AM Eastern Time ([place] & [place]) FINDINGS: Bones/joints: No acute fracture. Normal alignment. Kyphosis maintained. Minimal multilevel hypertrophic endplate changes. Status post posterior fusion at the T8 through L1 levels. Surgical hardware appears intact. No CT findings for screw loosening. No significant disc bulge or herniation. No severe spinal canal stenosis. No significant neural foraminal narrowing. Soft tissues: Unremarkable. IMPRESSION: 1. Limited study. 2. No acute fracture or subluxation. 3. Prior surgery. Accentuation of lumbar lordosis. FINDINGS: Bones/joints: No acute fracture. Normal alignment. No significant disc bulge or herniation. No severe spinal canal stenosis. No significant neural foraminal narrowing. Soft tissues: Unremarkable. IMPRESSION: No acute fracture or subluxation. Thank you for allowing us to participate in the care of your patient. Dictated and Authenticated by: Adin Turpin DO 03/29/2024 1:37 AM Eastern Time ([place] & [place]) Quality:SDOH Health Related Social Needs: No Data to Display Critical Care Time Critical Care Time Critical Care Time: Yes Total Critical Care Time: 45 Attestation: Upon my evaluation, this patient had a high probability of imminent or life- threatening deterioration, which required my direct attention, intervention, and personal management. I have personally provided 45 minutes of critical care time exclusive of time spent on separately billable procedures. Time includes review of laboratory data, radiology results, discussion with consultants, and monitoring for potential decompensation. Interventions were performed as documented. PFSH All Active Problems (Updated 03/29/24 @ 05:24 by Jayesh Bedoya DO) Decubitus ulcer (Acute) Scrotal ulcer (Acute) Urinary tract infection (Acute) Sepsis (Acute) UTI (urinary tract infection) (Acute) Chronic indwelling Arguello catheter (Acute) Left knee pain (Acute) Onychomycosis (Acute) Right knee pain (Acute) Elevated hemoglobin A1c (Acute) Preventative health care (Acute) Hypogonadism in male (Acute) Neurogenic bowel (Acute) GERD (gastroesophageal reflux disease) (Chronic) Chronic leg pain (Acute) Chronic back pain (Acute) Neurogenic bladder (Acute) Wheelchair bound (Acute) Chronic complete spastic paraplegia (Acute) PTSD (post-traumatic stress disorder) (Acute) Depression (Chronic) Anxiety (Chronic) Morbid obesity (Acute) Medical History Osteomyelitis Foot ulcer Tibia/fibula fracture Isiah placement Acetabulum fracture Open fracture of forearm H/O methicillin resistant Staphylococcus aureus Peripheral edema Right hip pain H/O deep venous thrombosis Snoring Daytime somnolence Chronic pain Social History Smoking/Tobacco Use Status: Never Smoking risk assessment performed?: Yes Alcohol Intake: current Alcohol Intake frequency: holidays/special occasions only Drug use: Occasionally Substance use type: marijuana Details: Has tried marijuana in the past, makes nerve pain worse, denies others. Adopted: No Caregiver/Support person: No Foster care: No Household members: children Housing: house Number of Children: 2 number of grandchildren: 0 Education Level: high school Do you need help understanding health information?: Never current occupation: disabled Pets and animals: Yes (2) Pets and animals: cat(s) and dog(s) Sexually active: No Do you think of yourself as: straight/heterosexual Current gender identity: male What is your relationship status?: How often do you talk on the phone with friends or family?: three or more times per week How often do you get together with friends or relatives?: three or more times per week How often do you attend anabaptism or advent services?: decline to answer Do you belong to any clubs or organized social groups?: no Panel score (0-1 are the most socially isolated patients): 1 What type of physical activity do you participate in: none Joslyn/Spiritism: None Seatbelt use: always Helmet use: No Drive intox or ride w/intox drive away driver: No Do you feel safe at home: Yes Do you feel safe in your relationship?: Yes
--- NOTE | 2024-03-29 02:20 | HPE_ITS ---
Date of service: 03/29/24 Time of Service: 02:20 Assessment and Plan Assessment and plan (1) UTI (urinary tract infection): Status: Acute Assessment and plan: UTI, and multiple scrotal ulcers. At risk for bacteremia but overall clinical impression is not a picture of sepsis at present. Will continue Zosyn and Vanco pending cultures. Will need Arguello changed out and properly positioned but will defer to Urology as my understanding is that placement of catheter has been problematic in past. Will also consult for wound care. History of Present Illness History of Present Illness Chief Complaint: fever Narrative: 33 male paraplegic with chronic indwelling Arguello, chronic scrotal edema with multiple non-healing ulcers, chronic back pain. In [facility] last week with UTI, treated with Rocephin, but patient laft after one day and was sent home on course of Cipro. We do not have culture results at present and patient states that culture was not done. In any case presents tonight with fever. Here in ER findings of note for temp 37.8, massive scrotal edema with multiple draining ulcers; white count 7.7 w/o shift; procal 0.13, lactate 1.3; U/A 10-20 RBC, 10-20 WBC; viral swab triple negative; CT chest w/o acute findings, CT abd/pelvis of note for extensive SQ infiltration adjacent to right buttock (which appears to be scrotal tissue) but no fluid collection; and Arguello within the urethra. Blood and urine cultures obtained, patient given Vanco and Zosyn. I was asked to evaluate for admission. Review of Systems Narrative: per HPI PFSH All Active Problems (Updated 03/29/24 @ 02:34 by Abelino Charles MD) UTI (urinary tract infection) (Acute) Chronic indwelling Arguello catheter (Acute) Left knee pain (Acute) Onychomycosis (Acute) Right knee pain (Acute) Elevated hemoglobin A1c (Acute) Preventative health care (Acute) Hypogonadism in male (Acute) Neurogenic bowel (Acute) GERD (gastroesophageal reflux disease) (Chronic) Chronic leg pain (Acute) Chronic back pain (Acute) Neurogenic bladder (Acute) Wheelchair bound (Acute) Chronic complete spastic paraplegia (Acute) PTSD (post-traumatic stress disorder) (Acute) Depression (Chronic) Anxiety (Chronic) Morbid obesity (Acute) Medical History Osteomyelitis Foot ulcer Tibia/fibula fracture Isiah placement Acetabulum fracture Open fracture of forearm H/O methicillin resistant Staphylococcus aureus Peripheral edema Right hip pain H/O deep venous thrombosis Snoring Daytime somnolence Chronic pain Social History Smoking/Tobacco Use Status: Never Smoking risk assessment performed?: Yes Alcohol Intake: current Alcohol Intake frequency: holidays/special occasions only Drug use: Occasionally Substance use type: marijuana Details: Has tried marijuana in the past, makes nerve pain worse, denies others. Adopted: No Caregiver/Support person: No Foster care: No Household members: children Housing: house Number of Children: 2 number of grandchildren: 0 Education Level: high school Do you need help understanding health information?: Never current occupation: disabled Pets and animals: Yes (2) Pets and animals: cat(s) and dog(s) Sexually active: No Do you think of yourself as: straight/heterosexual Current gender identity: male What is your relationship status?: How often do you talk on the phone with friends or family?: three or more times per week How often do you get together with friends or relatives?: three or more times per week How often do you attend uatsdin or roman catholic services?: decline to answer Do you belong to any clubs or organized social groups?: no Panel score (0-1 are the most socially isolated patients): 1 What type of physical activity do you participate in: none Joslyn/Anabaptism: None Seatbelt use: always Helmet use: No Drive intox or ride w/intox c[employer] company flatbed driver: No Do you feel safe at home: Yes Do you feel safe in your relationship?: Yes Meds Allergies and Home Medications Allergies Allergy/AdvReac Type Severity Reaction Status Date / Time erythromycin base Allergy Intermediate Hives Verified 03/28/24 23:15 Home Medications ?Medication ?Instructions ?Recorded ?Confirmed ?Type baclofen 20 mg tablet 50 mg PO TID 09/12/18 03/29/24 History Exam Narrative Exam Narrative: 132/80, 83, 37.8, 24, 96% RA. HEENT atraumatic; neck supple; lungs diminished; heart RRR; abdomen obese, NT; : massive scrotal edema but generally soft to somewhat firm without any focal mass or tenderness, with multiple oozing ulcers, extremities chronic lymphedema LEs, wrapped in boots; neuro Ox3, paraplegic Results Labs 03/28/24 22:26 03/28/24 22:26 Labs: Laboratory Results - last 24 hr 03/28/24 03/28/24 03/28/24 22: 22:50 23:10 WBC 7.70 RBC 4.22 L Hgb 10.4 L Hct 33.9 L MCV 80 MCH 24.6 L MCHC 30.7 L RDW 16.6 H Plt Count 203 MPV 11.2 H Immature Gran % 0.3 Neutrophils % 79.3 Lymphocytes % 11.7 Monocytes % 7.4 Eosinophils % 0.9 Basophils % 0.4 Nucleated RBC % 0.0 Absolute Neutrophils 6.11 Absolute Lymphocytes 0.90 L Absolute Monocytes 0.57 Absolute Eosinophils 0.07 Absolute Basophils 0.03 VBG Lactate 1.2 Sodium 136 Potassium 4.3 Chloride 101 Carbon Dioxide 30.4 Anion Gap 4.6 BUN 14 Creatinine 0.7 Est GFR (CKD-EPI 2020) 123.23 Glucose 91 Calcium 8.7 Total Bilirubin 0.46 AST 19 ALT 22 Alkaline Phosphatase 51 Total Protein 7.9 Albumin 2.8 L Procalcitonin 0.13 Urine Color Yellow Urine Clarity Cloudy Urine pH 6.5 Ur Specific Conklin >= 1.030 H Urine Protein >=300 H Urine Ketones Negative Urine Blood Moderate H Urine Nitrite Negative Urine Bilirubin Negative Urine Urobilinogen 0.2 Ur Leukocyte Esterase Small H Urine RBC 10-20 H Urine WBC 10-20 H Ur Epithelial Cells Rare Urine Crystals Negative Urine Bacteria Few Urine Casts 0-2 Fine Granular Urine Mucus Trace Ur Culture Indicated? C&S Done As Ordered Urine Glucose Negative COVID-19 Source Nasopharynx SARS-CoV-2 (PCR) Negative Influenza Type A (PCR) Negative Influenza Type B (PCR) Negative RSV (PCR) Negative Last Vital Signs Temp 37.8 C H 03/28/24 22:32 Pulse 83 03/29/24 02:00 Resp 24 03/29/24 02:00 BP 132/80 03/29/24 01:32 Pulse Ox 96 03/29/24 02:00 Time Spent Time spent with Patient: 55-74 minutes Time was spent: preparing to see the patient(eg.review tests), obtaining and/or reviewing separately otained hiistory, ordering medications,tests, procedures, referring, communicating with other health intensive care unit registered nurse and indepentently interpreting results
--- NOTE | 2024-03-29 04:30 | W.PC.ACHO ---
Registration Status: Primary Language: Preferred Language: ED Information & Data Chief Complaint GenMedical 03/29/24 01:48 Triage Note patient presents to ER from 03/28/24 22:32 home via [facility] with c /o increased back pain/fever and possible sepsis. is a paraplegic from waist down and has known wounds to the sacral area; patient has indwelling suprapubic catheter and was recently treated for UTI with cipro. Medical / Surgical History (Last Reviewed 03/29/24 @ 02:31 by Abelino Charles MD) Osteomyelitis Foot ulcer Tibia/fibula fracture Acetabulum fracture Open fracture of forearm H/O methicillin resistant Staphylococcus aureus Peripheral edema Right hip pain H/O deep venous thrombosis Snoring Daytime somnolence Chronic pain Most Recent Vital Signs Temperature 37.8 C H 03/28/24 22:32 Temperature Source Oral 03/28/24 22:32 Pulse 87 03/29/24 04:10 Pulse 89 03/29/24 04:10 Respiratory Rate 37 H 03/29/24 04:10 Respiratory Effort Normal 03/28/24 22:59 Respiratory Depth Normal 03/28/24 22:59 Respiratory Pattern Normal 03/28/24 22:59 Blood Pressure 163/68 H 03/29/24 03:02 Blood Pressure Mean 100 03/29/24 03:02 Pulse Oximetry 99 03/29/24 04:10 Oxygen Delivery Method Room Air 03/28/24 22:32 Oxygen Flow Rate 0 03/28/24 22:32 Pain Level 6 03/29/24 02:35 Comment 2L NC 03/29/24 01:10 Allergies erythromycin base Allergy (Intermediate, Verified 03/28/24 23:15) Hives Precautions Isolation Standard precaution 03/28/24 23:02 Active Medications Generic Name Dose Route Start Last Admin Trade Name Freq PRN Reason Stop Dose Admin Iohexol 100 ml 03/28/24 23:45 03/28/24 23:44 Omnipaque 350 Mg/Ml 100 Ml Btl IJ 04/27/24 23:59 100 ml DIRECTED HOWARD Administration Sodium Chloride 50 ml 03/28/24 23:45 03/28/24 23:44 Normal Saline - Diluent 50 Ml Vial IJ 50 ml .FOR DI USE HOWARD Administration Sodium Chloride 0 ml 03/28/24 23:45 03/28/24 23:45 Normal Saline Flush 10 Ml Syr IVP 10 ml PRN PRN Administration IV IV Catheter Type [Left Peripheral IV Antecubital] IV Catheter Type [Right Peripheral IV Forearm] IV Catheter Gauge [Left 18 Antecubital] IV Catheter Gauge [Right 20 Forearm] Diet Orders Category Date Time Status Regular/Normal [DIET] Nutrition 03/29/24 Breakfast Active Diagnostics 03/28/24 03/28/24 03/28/24 Range/Units 23:10 22:50 22:26 WBC 7.70 (4.4-10.8) 10^3/uL RBC 4.22 L (4.36-5.78) 10^6/uL Hgb 10.4 L (13.5-17.5) g/dL Hct 33.9 L (40.0-50.0) % MCV 80 (80-95) fL MCH 24.6 L (27.0-33.0) pg MCHC 30.7 L (32.0-36.0) % RDW 16.6 H (11.8-14.1) % Plt Count 203 (130-400) 10^3/uL MPV 11.2 H (8.0-11.0) fL Immature Gran % 0.3 % Neutrophils % 79.3 % Lymphocytes % 11.7 % Monocytes % 7.4 % Eosinophils % 0.9 % Basophils % 0.4 % Nucleated RBC % 0.0 (0.0-0.3) % Absolute Neutrophils 6.11 (1.2-6.7) 10^3/uL Absolute Lymphocytes 0.90 L (1.2-3.4) 10^3/uL Absolute Monocytes 0.57 (0.1-0.8) 10^3/uL Absolute Eosinophils 0.07 (0.0-0.7) 10^3/uL Absolute Basophils 0.03 (0.0-0.2) 10^3/uL VBG Lactate 1.2 (<or=2.0) mmol/L Sodium 136 (136-145) mmol/L Potassium 4.3 (3.5-5.1) mmol/L Chloride 101 (98-107) mmol/L Carbon Dioxide 30.4 (21.0-32.0) mmol/L Anion Gap 4.6 (3-11) mmol/L BUN 14 (7-18) mg/dL Creatinine 0.7 (0.70-1.30) mg/dL Est GFR (CKD-EPI 2020) 123.23 (mL/min/1.73m2) Glucose 91 (74-106) mg/dL Calcium 8.7 (8.5-10.1) mg/dL Total Bilirubin 0.46 (0.2-1.0) mg/dL AST 19 (15-37) U/L ALT 22 (16-63) U/L Alkaline Phosphatase 51 (46-116) U/L Total Protein 7.9 (6.4-8.2) g/dL Albumin 2.8 L (3.4-5.0) g/dL Procalcitonin 0.13 ng/mL Urine Color Yellow (Yellow) Urine Clarity Cloudy (Clear) Urine pH 6.5 (5-8) Ur Specific [place] >= 1.030 H (1.005-1.025) Urine Protein >=300 H (Neg-Trace) mg/dL Urine Ketones Negative (Negative) mg/dL Urine Blood Moderate H (Negative) Urine Nitrite Negative (Negative) Urine Bilirubin Negative (Negative) Urine Urobilinogen 0.2 (Up to 0.2) mg/dL Ur Leukocyte Esterase Small H (Negative) Urine RBC 10-20 H (0-2) HPF Urine WBC 10-20 H (0-5) HPF Ur Epithelial Cells Rare (Negative) HPF Urine Crystals Negative (Negative) HPF Urine Bacteria Few (Negative) HPF Urine Casts 0-2 Fine Granular (Negative) LPF Urine Mucus Trace (Negative) Ur Culture Indicated? C&S Done As Ordered Urine Glucose Negative (Negative) mg/dL COVID-19 Source Nasopharynx SARS-CoV-2 (PCR) Negative (Negative) Influenza Type A (PCR) Negative (Negative) Influenza Type B (PCR) Negative (Negative) RSV (PCR) Negative (Negative) 03/28/24 22:50 Blood Culture - Pending Blood 03/28/24 22:50 Urine Culture - Pending Urine - Cath Arguello Indwelling 03/28/24 22:26 Blood Culture - Pending Blood Intake and Output - 24 Hour Total 03/28/24 22:01 thru 03/29/24 02:16 Intake Total 550 Balance 550 Weight 155.582 kg Intake: IV 550 Falls Risk Assessment History of Falls Previous History 03/28/24 22:59 Contributing Factors Confusion,Impairments, 03/28/24 22:59 Medications Ambulatory Aids Uses ambulatory device + 03/28/24 22:59 Tubes/Lines With any additional score 03/28/24 22:59 Gait Evaluation W/any additional score 03/28/24 22:59 Cognition No cognitive impairment 03/28/24 22:59 Fall Total Score 94 03/28/24 22:59 Level of Risk Maximum Risk 03/28/24 22:59 Problems (Last Reviewed 03/29/24 @ 02:31 by Abelino Charles MD) UTI (urinary tract infection) (Acute) v v v v v v v v v Sending and/or Receiving Nurses: Please use comment section below to note any information pertinent to the patient hand-off not included above. Information / Comments: Kolby gave vinay at 1:10am Report received from: Kolby DEVI bedside
[2024-03-29] MEDS: VANCOMYCIN 1,000 MG in Normal Saline 250 ML 166.667 MG IVPB (06:31)
[2024-03-29] MEDS: Water,Injection,Sterile 10 ML VIAL (06:54)
[2024-03-29] MEDS: Acetaminophen 500 MG TAB 1000 MG PO ×2 (06:55→14:51)
[2024-03-29] MEDS: Ibuprofen 600 MG TAB PO ×2 (06:55→14:51)
[2024-03-29] MEDS: LORazepam 1 MG TAB PO ×3 (08:03→23:28)
[2024-03-29] MEDS: Normal Saline Flush 10 ML SYR IVP (08:38)
--- NOTE | 2024-03-29 09:15 | INITIAL_ITS ---
Date of service: 03/29/24 Time of Service: 09:15 Care Management Initial Assmt Initial Assessment Reason for Hospitalization: UTI Functional Status/Living Situation Patient Presentation: Thony presented to the ED yesterday with c/o chills and fever. He had been at [facility] about a week ago for UTI, was tx with Cipro, and discharged. Yesterday was his last day of Cipro, and he noticed 2 days ago that his fever and chills were returning. He called EMS to be brought to ER and was found to have a UTI. Thony is a paraplegic with a chronic indwelling shepard catheter. Thony was not feeling well at all when CM went to meet with him, so our conversation was short. Thony has [facility] caretakers daily. 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 He has scrotal wounds that he has been caring for by himself. Tohny has been raising his sons on his own for years. Town of Residence: [place] Resides with: Child (2 sons age 15, 12, raising on his own) Significant Other/Family: Local (mom Mona and grandmom Krystle) Caregiver/Guardian: [facility] client. Brendan Monk is CM at [facility]. Has caregivers from [facility] daily Employment Status: Disabled Instrumental Activities of Daily Living (ADLs): Requires support (Thony does the cooking for himself and his children. Has help for housekeeping) Medications Medication Management: No Issues/Barriers identified Physical Functioning/Mobility Assistive Device: wheel chair bound Advance Directives Advance Directives: Do you have an Advance Directive: N 02/08/23 23:34 AD On File at [facility]: N 02/08/23 23:34 Date Asked 03/28/24 03/28/24 22:26 AD Date Reviewed COLST On File at [facility] No 03/28/24 22:26 COLST Date Scanned Code Status Resuscitation Status Full Code Insurance Coverage/Financial Issues Insurance: [place] medicaid [facility] Care Team Visit Care Team Role Provider Type Clarissa Hunt APRN Primary Care Provider NURSE PRACTITIONER Jose G Ramos MD Other Providers [facility] STAFF PHYSICIAN Jayesh Bedoya DO Emergency Provider [facility] STAFF PHYSICIAN Joellen Lux NP Attending Provider [facility] STAFF PHYSICIAN Abelino Charles MD Admit Provider [facility] STAFF PHYSICIAN Discharge Potential Discharge Needs: Consult (urology and wound care) and PCP F/U Appt Anticipated Barriers to Discharge: None Identified Patient/Family Education Needs: Review discharge instructions, discuss Ask Me Three Plan: Anticipate that Thony will be discharged home with no new services. He will f/u with his PCP and possibly urology and continue per his plan of care. He will transport home via EMS as he does not have his wheelchair with him. He could possibly use for wound care, but he is a special case at [facility] where he must be discussed prior to having services. CM will continue to follow and update the plan as needed. Social Determinants of Health Screening Will the Patient Participate in the Screening?: Declined to provide Do you worry about having a steady place to live?: choose not to answer PFSH All Active Problems (Updated 03/29/24 @ 05:24 by Jayesh Bedoya DO) Decubitus ulcer (Acute) Scrotal ulcer (Acute) Urinary tract infection (Acute) Sepsis (Acute) UTI (urinary tract infection) (Acute) Chronic indwelling Shepard catheter (Acute) Left knee pain (Acute) Onychomycosis (Acute) Right knee pain (Acute) Elevated hemoglobin A1c (Acute) Preventative health care (Acute) Hypogonadism in male (Acute) Neurogenic bowel (Acute) GERD (gastroesophageal reflux disease) (Chronic) Chronic leg pain (Acute) Chronic back pain (Acute) Neurogenic bladder (Acute) Wheelchair bound (Acute) Chronic complete spastic paraplegia (Acute) PTSD (post-traumatic stress disorder) (Acute) Depression (Chronic) Anxiety (Chronic) Morbid obesity (Acute) Medical History Osteomyelitis Foot ulcer Tibia/fibula fracture Isiah placement Acetabulum fracture Open fracture of forearm H/O methicillin resistant Staphylococcus aureus Peripheral edema Right hip pain H/O deep venous thrombosis Snoring Daytime somnolence Chronic pain Social History Smoking/Tobacco Use Status: Never Smoking risk assessment performed?: Yes Alcohol Intake: current Alcohol Intake frequency: holidays/special occasions only Drug use: Occasionally Substance use type: marijuana Details: Has tried marijuana in the past, makes nerve pain worse, denies others. Adopted: No Caregiver/Support person: No Foster care: No Household members: children Housing: house Number of Children: 2 number of grandchildren: 0 Education Level: high school Do you need help understanding health information?: Never current occupation: disabled Pets and animals: Yes (2) Pets and animals: cat(s) and dog(s) Sexually active: No Do you think of yourself as: straight/heterosexual Current gender identity: male What is your relationship status?: How often do you talk on the phone with friends or family?: three or more times per week How often do you get together with friends or relatives?: three or more times per week How often do you attend synagogue or latter-day services?: decline to answer Do you belong to any clubs or organized social groups?: no Panel score (0-1 are the most socially isolated patients): 1 What type of physical activity do you participate in: none Joslyn/Oriental Orthodox: None Seatbelt use: always Helmet use: No Drive intox or ride w/intox guard driver: No Do you feel safe at home: Yes Do you feel safe in your relationship?: Yes Readmission Within the Past 30 Days Yes or No: No
[2024-03-29 10:11] LABS: *AMPHETAMINES SCREEN URINE Negative (Negative); *BARBITURATES SCREEN URINE Negative (Negative); *BENZODIAZEPINES SCREEN URINE Negative (Negative); Cannabinoids THC Positive (Negative); Cocaine Screen,Urine Negative (Negative); METHADONE URINE SCREEN Negative (Negative); OPIATES URINE SCREEN Positive (Negative)
[2024-03-29 10:13] LABS: Tricyclic Antidepressants Negative (Negative)
[2024-03-29 11:05] LABS: Vancomycin, Random 14.2 ug/mL
[2024-03-29 11:21] LABS: MRSA PCR Positive (Negative)
[2024-03-29] MEDS: VANCOMYCIN 2,000 MG in Normal Saline 500 ML 250 MG IV ×2 (13:29→19:47)
--- NOTE | 2024-03-29 15:47 | W.UROLOGYCON ---
Date of service: 03/29/24 Time of Service: 14:00 Assessment and Plan Assessment and plan (1) Chronic indwelling Arguello catheter: Status: Acute (2) Neurogenic bladder: Status: Acute Assessment and plan: Replaced indwelling Arguello. See Arguello insertion section. More complete consult to be given by Dr. Ramos when he is present tomorrow. Urine culture is pending. Dictation was done by [employer] voice recognition. Errors may be present within the note. A total of 30 minutes was spent reviewing this patient's EMR, [id number] time, and documenting. History of Present Illness Narrative: Mr. Kathleen is a 33-year-old paraplegic male with neurogenic bladder has chronic indwelling Arguello. Patient had a CT that revealed his Arguello catheter tip was in the bladder. Catheter was removed due to being dirty and urology was consulted to replace catheter. Consults Consult date: 03/29/24 Requesting physician: Joellen Lux [facility] All Active Problems (Updated 03/29/24 @ 05:24 by Jayesh Bedoya DO) Decubitus ulcer (Acute) Scrotal ulcer (Acute) Urinary tract infection (Acute) Sepsis (Acute) UTI (urinary tract infection) (Acute) Chronic indwelling Arguello catheter (Acute) Left knee pain (Acute) Onychomycosis (Acute) Right knee pain (Acute) Elevated hemoglobin A1c (Acute) Preventative health care (Acute) Hypogonadism in male (Acute) Neurogenic bowel (Acute) GERD (gastroesophageal reflux disease) (Chronic) Chronic leg pain (Acute) Chronic back pain (Acute) Neurogenic bladder (Acute) Wheelchair bound (Acute) Chronic complete spastic paraplegia (Acute) PTSD (post-traumatic stress disorder) (Acute) Depression (Chronic) Anxiety (Chronic) Morbid obesity (Acute) Medical History Osteomyelitis Foot ulcer Tibia/fibula fracture Isiah placement Acetabulum fracture Open fracture of forearm H/O methicillin resistant Staphylococcus aureus Peripheral edema Right hip pain H/O deep venous thrombosis Snoring Daytime somnolence Chronic pain Social History Smoking/Tobacco Use Status: Never Smoking risk assessment performed?: Yes Alcohol Intake: current Alcohol Intake frequency: holidays/special occasions only Drug use: Occasionally Substance use type: marijuana Details: Has tried marijuana in the past, makes nerve pain worse, denies others. Adopted: No Caregiver/Support person: No Foster care: No Household members: children Housing: house Number of Children: 2 number of grandchildren: 0 Education Level: high school Do you need help understanding health information?: Never current occupation: disabled Pets and animals: Yes (2) Pets and animals: cat(s) and dog(s) Sexually active: No Do you think of yourself as: straight/heterosexual Current gender identity: male What is your relationship status?: How often do you talk on the phone with friends or family?: three or more times per week How often do you get together with friends or relatives?: three or more times per week How often do you attend nondenominational or mandaeism services?: decline to answer Do you belong to any clubs or organized social groups?: no Panel score (0-1 are the most socially isolated patients): 1 What type of physical activity do you participate in: none Joslyn/Zoroastrian: None Seatbelt use: always Helmet use: No Drive intox or ride w/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 Scrotum engulfs shaft of penis Results Last Vital Signs Temp 96.8 F L 03/29/24 12:04 Pulse 79 03/29/24 12:04 Resp 20 03/29/24 12:04 BP 128/61 03/29/24 12:04 Pulse Ox 95 03/29/24 12:04 Labs 03/28/24 22:26 03/28/24 22:26 Labs: Laboratory Results - last 24 hr 03/28/24 03/28/24 03/28/24 22:26 22:50 23:10 WBC 7.70 RBC 4.22 L Hgb 10.4 L Hct 33.9 L MCV 80 MCH 24.6 L MCHC 30.7 L RDW 16.6 H Plt Count 203 MPV 11.2 H Immature Gran % 0.3 Neutrophils % 79.3 Lymphocytes % 11.7 Monocytes % 7.4 Eosinophils % 0.9 Basophils % 0.4 Nucleated RBC % 0.0 Absolute Neutrophils 6.11 Absolute Lymphocytes 0.90 L Absolute Monocytes 0.57 Absolute Eosinophils 0.07 Absolute Basophils 0.03 VBG Lactate 1.2 Sodium 136 Potassium 4.3 Chloride 101 Carbon Dioxide 30.4 Anion Gap 4.6 BUN 14 Creatinine 0.7 Est GFR (CKD-EPI 2020) 123.23 Glucose 91 Calcium 8.7 Total Bilirubin 0.46 AST 19 ALT 22 Alkaline Phosphatase 51 Total Protein 7.9 Albumin 2.8 L Procalcitonin 0.13 Urine Color Yellow Urine Clarity Cloudy Urine pH 6.5 Ur Specific [place] >= 1.030 H Urine Protein >=300 H Urine Ketones Negative Urine Blood Moderate H Urine Nitrite Negative Urine Bilirubin Negative Urine Urobilinogen 0.2 Ur Leukocyte Esterase Small H Urine RBC 10-20 H Urine WBC 10-20 H Ur Epithelial Cells Rare Urine Crystals Negative Urine Bacteria Few Urine Casts 0-2 Fine Granular Urine Mucus Trace Ur Culture Indicated? C&S Done As Ordered Urine Glucose Negative Random Vancomycin Urine Opiates Screen Urine Methadone Screen Ur Barbiturates Screen Ur Tricyclics Screen Ur Amphetamines Screen U Benzodiazepines Scrn Urine Cocaine Screen Ur THC Screen COVID-19 Source Nasopharynx SARS-CoV-2 (PCR) Negative Influenza Type A (PCR) Negative Influenza Type B (PCR) Negative RSV (PCR) Negative MRSA (TEM-PCR) 03/29/24 03/29/24 03/29/24 08:00 09:30 10:35 WBC RBC Hgb Hct MCV MCH MCHC RDW Plt Count MPV Immature Gran % Neutrophils % Lymphocytes % Monocytes % Eosinophils % Basophils % Nucleated RBC % Absolute Neutrophils Absolute Lymphocytes Absolute Monocytes Absolute Eosinophils Absolute Basophils VBG Lactate Sodium Potassium Chloride Carbon Dioxide Anion Gap BUN Creatinine Est GFR (CKD-EPI 2020) Glucose Calcium Total Bilirubin AST ALT Alkaline Phosphatase Total Protein Albumin Procalcitonin Urine Color Urine Clarity Urine pH Ur Specific [place] Urine Protein Urine Ketones Urine Blood Urine Nitrite Urine Bilirubin Urine Urobilinogen Ur Leukocyte Esterase Urine RBC Urine WBC Ur Epithelial Cells Urine Crystals Urine Bacteria Urine Casts Urine Mucus Ur Culture Indicated? Urine Glucose Random Vancomycin 14.2 Urine Opiates Screen Positive A Urine Methadone Screen Negative Ur Barbiturates Screen Negative Ur Tricyclics Screen Negative Ur Amphetamines Screen Negative U Benzodiazepines Scrn Negative Urine Cocaine Screen Negative Ur THC Screen Positive A COVID-19 Source SARS-CoV-2 (PCR) Influenza Type A (PCR) Influenza Type B (PCR) RSV (PCR) MRSA (TEM-PCR) Positive A Insert Bladder Catheter Procedure performed by: Nanci Bai Indication for procedure: Yes Informed consent given: Yes Position of patient: supine Sterilizing agent: Yes (Betadine) Type of anesthesia: topical gel Catheter size (Fr): 14 Catheter type: coude tip Lubrication: Yes Catheter inserted: without difficulty (Once meatal opening was identified due to scrotal enlargement engulfing penis) Volume instilled into catheter balloon: 20cc Urine color: yellow Irrigation: No Catheter attached to: bedside drainage bag
--- NOTE | 2024-03-29 16:22 | W.EVENT ---
Date of service: 03/29/24 Time of Service: 14:00 Event Note: Extremely difficult urinary catheter insertion mostly due to body habitus -- scrotal enlargement. Assisted by Nanci Bai APRN from Urology Bladder Catheter Insertion Procedure Performed by: Nanci Bai Indication for Procedure: Yes Informed Consent Given: Yes Position of Patient: Supine Sterilizing Agent Used: Betadine Type of Anesthesia: Topical Gel Catheter Size (Fr): 14 Catheter Type: Coude Tip Lubrication Used: Yes Catheter Insertion: Performed without difficulty after identifying the meatal opening, which was obscured by scrotal enlargement. Volume Instilled into Catheter Balloon: 20cc Urine Color: Yellow Irrigation: Not performed Catheter Attached to: Bedside drainage bag Time Spent with Patient Time spent in critical care(minutes): 0 Time Spent Included: Performing procedures not included in c.c time (90 MIN) and Time at immediate bedside (110 MIN)
[2024-03-29] MEDS: HYDROmorphone 4 MG TAB PO (16:26)
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
[2024-03-29] MEDS: LORazepam 2 MG/ML VIAL IM (18:12)
--- NOTE | 2024-03-29 18:12 | PDOC.CMSAFE ---
Date of service: 03/29/24 Time of Service: 18:12 Care Management Safety Plan Status Status: Interim Safety Plan Safety Plan: Patient is currently on Med Surg and is not medically cleared, awaiting [facility] assessment. ?If screener deems patient meets criteria for psychiatric stabilization CM will facilitate interdepartmental huddle with [facility] screener for safety planning considerations and meet with patient to review [facility] policy and safety plan, establish individual wishes for treatment and maintain patient rights. In the interim; please note safety plan below to guide patient care while awaiting further assessment. SAFETY PLAN: 1. Will remain on suicide precautions and in paper clothes/hospital gown 2. Will remain in room under direct supervision of one-on-one staff at all times provided by MARY, CLOUD AUTOMATION TESTER electric utility lineworker. 3. May have paper cups, plates, finger foods as well as a cardboard spoon with which to eat meals. 4. Follow [facility] Management of the Admitted Behavioral Health Patient policy. 5. Personal care: Comfort bath system only at this time. 6. Bathroom privileges: with escort in ED. Available in room without limitation on Med/Surg. 6. No personal belongings at this time; per RN discretion. 7. No visitors at this time. 8. Phone contact limited to legal contact at this time. 9. Activities: Music tablet per RN discretion. Med/Surg: Television and remote available at RN discretion. 10. Due to VOLUNTARY status, if patient wishes to leave [facility], staff will contact [facility] Crisis Screener ([phone]) and On-Call Hospital Medical Assistant ([phone]) as soon as possible. In the event of elopement, notify [facility] Police ([phone]). ?If deemed appropriate for inpatient psychiatric care, safety plan will be established with patient, and care team, to adhere to patient goals, identify restrictions based on behavioral status, address nutrition, and determine allowed personal belongings, tools for hygiene and personal care. As well plan will determine level of activity including ambulation, level of supervision, visitors, and determine privileges based on level of acuity, behaviors and level of engagement by patient
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
[2024-03-30] MEDS: MORPHine 4 MG/ML SYR IVP ×6 (02:38→18:36)
[2024-03-30] MEDS: PIPERACILLIN/TAZO 3.375 GM in Normal Saline 50 ML IVPB ×4 (03:19→22:37)
[2024-03-30] MEDS: VANCOMYCIN 2,000 MG in Normal Saline 500 ML 250 MG IV ×3 (03:55→20:23)
[2024-03-30] MEDS: Enoxaparin 40 MG/0.4 ML SYR SC ×2 (05:57→18:40)
[2024-03-30 06:46] LABS: Abs Immature Grans 0.01 10^3/uL (0.0-0.06); Absolute Basophil Count 0.02 10^3/uL (0.0-0.2); Absolute Eosinophil Count 0.09 10^3/uL (0.0-0.7); Absolute Lymphocyte Count 1.14 10^3/uL (1.2-3.4); Absolute Monocyte Count 0.55 10^3/uL (0.1-0.8); Absolute Neutrophil Count 1.89 10^3/uL (1.2-6.7); Basophils % 0.5 %; Eosinophils % 2.4 %; HCT 32.7 % (40.0-50.0); HGB 9.6 g/dL (13.5-17.5); Immature Grans % 0.3 %; Lymphocytes % 30.8 %; MCH 24.6 pg (27.0-33.0); MCHC 29.4 % (32.0-36.0); MCV 84 fL (80-95); Monocytes % 14.9 %; Neutrophils % 51.1 %; Platelet Count 168 10^3/uL (130-400); RBC 3.91 10^6/uL (4.36-5.78); RDW-SD 51.5 fL
[2024-03-30 06:55] LABS: Anion Gap -0.3 mmol/L (3-11); BUN 10 mg/dL (7-18); C-Reactive Protein 5.62 mg/dL (<or=0.5); CO2 35.3 mmol/L (21.0-32.0); CREATININE 0.6 mg/dL (0.70-1.30); Chloride 104 mmol/L (98-107); Glucose 101 mg/dL (74-106); Magnesium 1.8 mg/dL (1.8-2.4); Sodium 139 mmol/L (136-145)
[2024-03-30 07:33] VITALS: BP 130/87; PULSE 80; RESP 19; TEMP 36.5; O2SAT 90
[2024-03-30] MEDS: Acetaminophen 500 MG TAB 1000 MG PO ×2 (08:03→18:39)
[2024-03-30] MEDS: Ibuprofen 600 MG TAB PO ×2 (08:04→18:39)
--- NOTE | 2024-03-30 10:09 | PDOC.CMPRO ---
Date of service: 03/30/24 Time of Service: 10:09 Care Management Progress Note Progress Note Text Progress Note Text: Thony was awake and lying in bed when CM met with him. He pleasant and agreed to be screened by [facility], moments later CM handed pt the tablet and he was immediately defensive with the clinician, stating that he is not suicidal and that was all they needed to know. Thony handed the tablet back to this blog writer and asked that I leave. CM felt this interaction may have been more productive if the patient had been able to interact with the screener by video, rather than a blank screen. In addition, CM spoke with Vivian at [facility] and was advised that the team will need to do a chart review before they will consider taking him on due to previous interactions and his history of non-compliance. CM will continue to follow. Discharge Potential Discharge Needs: Consult (Urology and Wound Care) and PCP F/U Appt Anticipated Barriers to Discharge: Medical Status Patient/Family Education Needs: Review discharge instructions, discuss Ask Me Three Transportation: EMS Plan: Anticipate that Thony will be discharged home with new services, if indicated. He will f/u with his PCP and possibly urology and continue per his plan of care. He will transport home via EMS as he does not have his wheelchair with him. He could possibly use for wound care, but he is a special case at [facility] where he must be discussed prior to having services. CM will continue to follow and update the plan as needed. Social Determinants of Health Screening Will the Patient Participate in the Screening?: Declined to provide Do you worry about having a steady place to live?: choose not to answer
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
[2024-03-30 13:03] LABS: Vancomycin, Trough 12.7 ug/mL (10.0-20.0)
[2024-03-30] MEDS: LORazepam 1 MG TAB PO ×2 (13:19→19:23)
--- NOTE | 2024-03-30 14:39 | W.PM.PROGNOT ---
Date of Service Date of service: 03/30/24 Time of Service: 14:40 Subjective Subjective Patient reports: no new complaints, tolerating a regular diet, bowel movement and afebrile; denies diarrhea, vomiting or shortness of breath Interval history since last seen: Awake alert, had a bed bath and hair washed, did meet with his professor via zoom today and was engaged in conversations and stated he was glad he was here and being treated and anxious to get well and go home. Exam Narrative Exam Narrative: 1.Const: Well-nourished, Well-developed, appearing stated age 2.Eyes: PERRL, no conjunctival injection, and symmetrical lids. 3.ENT: Atraumatic external nose and ears. Moist MM. Neck: Symmetric, trachea midline, No thyromegaly. 4.CVS: +S1/S2, Peripheral pulses 2+ and equal in all extremities. Brisk capillary refill in all extremities. 5.RESP: Unlabored respiratory effort. Clear to auscultation bilaterally. No wheezes rales or rhonchi 6.GI: Mild tenderness throughout his abdomen. No guarding. Unable to fully visualize the penis secondary to edema, genital size, and pannus 7.MSK: Feet do not show any evidence of acute ulcer. Legs do not move. Arms are functioning normally. 8.Skin: Patient demonstrates notably enlarged scrotum Mild induration anteriorly without significant erythema. The scrotum has chronic redness with multiple chronic ulcers and skin breakdown. No abscess. No fluctuance. 9.Neuro: associate trainer II-XII grossly intact. Sensation grossly intact, no focal neurologic deficits. 10.Psych: (AAO) x3. Appropriate mood and affect Const General: cooperative, no acute distress and disheveled Nutritional Appearance: obese and edematous Orientation: alert, awake and oriented x3 Limitations: altered mental status HENUT Head: normal to inspection Objective Last Vital Signs Temp 36.5 C 03/30/24 07:33 Pulse 80 03/30/24 07:33 Resp 19 03/30/24 07:33 BP 130/87 03/30/24 07:33 Pulse Ox 90 L 03/30/24 07:33 Laboratory Results - last 24 hr 03/30/24 03/30/24 03/30/24 06:22 11:10 12:35 WBC 3.70 L RBC 3.91 L Hgb 9.6 L Hct 32.7 L MCV 84 D MCH 24.6 L MCHC 29.4 L RDW 17.0 H Plt Count 168 MPV 11.0 Immature Gran % 0.3 Neutrophils % 51.1 Lymphocytes % 30.8 Monocytes % 14.9 Eosinophils % 2.4 Basophils % 0.5 Nucleated RBC % 0.0 Absolute Neutrophils 1.89 Absolute Lymphocytes 1.14 L Absolute Monocytes 0.55 Absolute Eosinophils 0.09 Absolute Basophils 0.02 Sodium 139 Potassium 4.0 Chloride 104 Carbon Dioxide 35.3 H Anion Gap -0.3 L BUN 10 Creatinine 0.6 L Est GFR (CKD-EPI 2020) 129.10 Glucose 101 Calcium 8.0 L Magnesium 1.8 C-Reactive Protein 5.62 H Vancomycin Trough Cancelled 12.7 Time Spent with Patient Time Spent with Patient: 25-34 minutes Time was spent: preparing to see the patient(eg.review tests), ordering medications,tests, procedures, referring, communicating with other health career guidance technician, indepentently interpreting results, counseling the patient and care coordination
[2024-03-30 15:25] VITALS: BP 126/78; PULSE 84; RESP 15; TEMP 37.9; O2SAT 91
--- NOTE | 2024-03-30 15:33 | PDOC.MHCN ---
Date of service: 03/30/24 Time of Service: 13:00 Mental Health Emergency Note Release [facility] release signed:: No Reason for Visit Client was brought in for medical reasons. In the last 2 weeks has the pt presented for ES prior to today?: Unknown Client Information Well Housed: Yes Non Suicidal Self Injury Current: Yes, Unknown. History: yes, Unknown. Safety Risk/Harm to Self or Others Current Ideation to Harm Self or Others: Yes to self. (Unknown. ) Intent: no, has no intent. Plan: no.does not have a plan. History of suicide attempt: yes,history of suicide attempt reported. Details of previous suicide attempt: Unknown. Asssessment/Mental Status Appearance: Disheveled Attitude: Guarded Behavior: Agitated Speech: Loud Affect: Blunted and Expansive Mood: Elevated, Stressed and Irritable Impression ES was requested to do a mental health assessment due to SI comments and other concerns. Clinical Laboratory Manager Anette informed ghost writer that the nurse practitioner corrected the reported statements, but she would still like an assessment done. Charm Filter Operator Helper was in agreement and joined via zoom. Client refused to engage and stated multiple times that he was not suicidal and he did not want to hurt himself and he didn't need [facility] services. clearance center manager Ange reported to Anette that it was due to ghost writer having camera off. Charm Filter Operator Helper offered to turn camera on and try to assess again and hasn't heard back for any care managers about client or moving forward with the assessment. Plan/Disposition Recommended Disposition: Other. Plan: Client refused to engage and ghost writer followed up with care management team and hasn't heard back. Reports/communication Outcome discussed with: ED/Personnel
[2024-03-30] MEDS: HYDROmorphone 2 MG/ML SYR IVP (21:20)
[2024-03-30] MEDS: MORPHine CR 15 MG TABCR PO (21:21)
[2024-03-30] MEDS: LORazepam 2 MG/ML VIAL IVP (22:55)
--- NOTE | 2024-03-30 22:57 | W.EVENT ---
Date of service: 03/30/24 Time of Service: 20:50 Event Note: Called by the RN due to the patient requesting to leave AMA as his pain was not adequately controlled with IV morphine. Patient had also received PO ativan as well earlier in the shift. I went to evaluate and discuss with the patient. He reports that he has been experiencing cramping and pain in his legs due to positioning in the bed. Repositioning him tends to increase his pain temporarily but then provides relief to his lower extremities. He reports previously being on extended release Morphine at home but is unsure of the dose. He also reports that Dilaudid has previously been more effective than IV morphine at pain control in the hospital. 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 He does not want to leave AMA, but is frustrated about his pain, his circumstance and anxious about his current situation. We discussed changing to IV dilaudid and starting Morphine CR 15 mg PO q12 hours as well as providing him with IV ativan prn for anxiety and spasms. He was agreeable to this plan and willing to remain hospitalized. I did provide him with a note for his professor requesting that he be excused from his course work until he is discharged from the hospital. Time spent in the prolonged care of the patient including discussion at the bedside and communication with his RN as well as coordination of care: 25 minutes Time Spent with Patient Time spent in critical care(minutes): 0 Time Spent Included: Coordination of care and Time at immediate bedside
[2024-03-31] MEDS: HYDROmorphone 2 MG/ML SYR IVP ×4 (00:35→09:00)
[2024-03-31] MEDS: Normal Saline Flush 10 ML SYR IVP ×7 (00:35→12:02)
[2024-03-31 00:46] VITALS: BP 134/87; PULSE 78; RESP 24; TEMP 36.6; O2SAT 97
[2024-03-31] MEDS: HYDROmorphone 2 MG/ML SYR 1 MG IVP (02:02)
--- NOTE | 2024-03-31 03:37 | W.PM.PROGNOT ---
Date of Service Date of service: 03/31/24 Time of Service: 03:37 Assessment and Plan Assessment and plan (1) Neurogenic bladder: Status: Acute (2) Chronic indwelling Arguello catheter: Status: Acute Assessment and plan: The catheter seems to be functioning adequately. I wonder if his symptoms are more related to bladder spasms. The patient tells me that in the past, he had been on oxybutynin. I will restart the oxybutynin. In the future, the patient may want to consider having a suprapubic tube to help with catheter changes. I am not sure that we would be able to accommodate a patient of his size in our office to transfer him to our exam table (we do not have a Aniket lift available) to provide him with routine urethral catheter changes. Any suprapubic tube placement would need a referral to our colleagues at interventional radiology as he would not be a surgical candidate here at our facility (I am only able to place suprapubic catheters at [facility] in the operating room) Subjective Subjective Interval history since last seen: I received a call early this morning with concerns that the catheter was not draining properly. The nursing staff reports that the catheter was not irrigating well and that they found over 900 cc in his bladder on bladder scan. I was asked to come in to change his catheter as staff had been unable to do so in the past. Exam Narrative Exam Narrative: The patient has an indwelling catheter that has urine draining in the drainage bag. I was actually able to hand irrigate the catheter with no difficulty. I then performed a bedside ultrasound and did not identify a distended bladder although the imaging is compromised by the patient's size Objective Last Vital Signs Temp 36.6 C 03/31/24 00:46 Pulse 78 03/31/24 00:46 Resp 24 03/31/24 00:46 BP 134/87 03/31/24 00:46 Pulse Ox 97 03/31/24 00:46 Laboratory Results - last 24 hr 03/30/24 03/30/24 03/30/24 06:22 11:10 12:35 WBC 3.70 L RBC 3.91 L Hgb 9.6 L Hct 32.7 L MCV 84 D MCH 24.6 L MCHC 29.4 L RDW 17.0 H Plt Count 168 MPV 11.0 Immature Gran % 0.3 Neutrophils % 51.1 Lymphocytes % 30.8 Monocytes % 14.9 Eosinophils % 2.4 Basophils % 0.5 Nucleated RBC % 0.0 Absolute Neutrophils 1.89 Absolute Lymphocytes 1.14 L Absolute Monocytes 0.55 Absolute Eosinophils 0.09 Absolute Basophils 0.02 Sodium 139 Potassium 4.0 Chloride 104 Carbon Dioxide 35.3 H Anion Gap -0.3 L BUN 10 Creatinine 0.6 L Est GFR (CKD-EPI 2020) 129.10 Glucose 101 Calcium 8.0 L Magnesium 1.8 C-Reactive Protein 5.62 H Vancomycin Trough Cancelled 12.7 Insert Bladder Catheter Text: The patient was seen at the bedside. His indwelling 14 [place] coud? tipped catheter was removed by deflating the catheter balloon. 20 cc of sterile water was removed. I was unable to visualize the meatus but I was able to palpate it. I was not able to perform and a septic application to the urethral meatus. I did inject 2% lidocaine jelly under the skin. I directed a 20 [place] coud? tipped catheter through the urethral meatus and advanced the catheter into the bladder. No significant urine output was obtained. The catheter was irrigated easily. The catheter was hooked to gravity drainage. Time Spent with Patient Time Spent with Patient: 25-34 minutes Time was spent: obtaining and/or reviewing separately otained hiistory, ordering medications,tests, procedures, referring, communicating with other health critical care clinical nurse specialist, indepentently interpreting results and counseling the patient
[2024-03-31] MEDS: Piperacillin/Tazobactam 3.375 GM VIAL (03:39)
[2024-03-31] MEDS: PIPERACILLIN/TAZO 3.375 GM in Normal Saline 50 ML IVPB (03:43)
[2024-03-31] MEDS: LORazepam 2 MG/ML VIAL IVP ×2 (04:13→10:19)
[2024-03-31] MEDS: VANCOMYCIN 2,000 MG in Normal Saline 500 ML 250 MG IV (04:13)
[2024-03-31] MEDS: Enoxaparin 40 MG/0.4 ML SYR SC (06:07)
[2024-03-31 06:33] LABS: Abs Immature Grans 0.01 10^3/uL (0.0-0.06); Absolute Basophil Count 0.02 10^3/uL (0.0-0.2); Absolute Eosinophil Count 0.22 10^3/uL (0.0-0.7); Absolute Lymphocyte Count 1.53 10^3/uL (1.2-3.4); Absolute Monocyte Count 0.51 10^3/uL (0.1-0.8); Absolute Neutrophil Count 2.83 10^3/uL (1.2-6.7); Basophils % 0.4 %; Eosinophils % 4.3 %; Immature Grans % 0.2 %; Lymphocytes % 29.9 %; MCH 24.6 pg (27.0-33.0); MCHC 29.4 % (32.0-36.0); MCV 84 fL (80-95); Neutrophils % 55.2 %; Platelet Count 188 10^3/uL (130-400); RBC 4.07 10^6/uL (4.36-5.78); RDW 16.7 % (11.8-14.1); RDW-SD 51.3 fL; WBC 5.12 10^3/uL (4.4-10.8)
[2024-03-31 06:55] LABS: Anion Gap 4.3 mmol/L (3-11); BUN 9 mg/dL (7-18); CO2 32.7 mmol/L (21.0-32.0); CREATININE 0.6 mg/dL (0.70-1.30); Chloride 104 mmol/L (98-107); Glucose 123 mg/dL (74-106); Magnesium 1.8 mg/dL (1.8-2.4); Sodium 141 mmol/L (136-145)
--- NOTE | 2024-03-31 07:46 | W.PM.PROGNOT ---
Date of Service Date of service: 03/31/24 Time of Service: 07:46 Assessment and Plan Assessment and plan (1) Neurogenic bladder: Status: Acute (2) Chronic indwelling Arguello catheter: Status: Acute Assessment and plan: I will check with my office staff when they get in this morning. For safety reasons and our inability to transfer him onto our procedure table, we would not be able to bring him up to our office to do cystoscopy and placement of the catheter. Instead, we would need to bring our equipment down to his room to successfully place the urethral catheter. No specific preparation should be needed for the patient. He does not need to be n.p.o. as this is a routine office procedure usually. The patient and the hospital staff are agreeable to this plan. We will contact the unit to give them a better time estimate of when we can bring our equipment down. Subjective Subjective Interval history since last seen: After this morning's encounter with the patient, I went back and reviewed his other CT scans done at our facility. Even on CT from a year ago, his urethral catheter balloon was inflated in his urethra rather than in his bladder. I had already mentioned that we would not be able to change a standard urethral catheter for this gentleman in our office as we would not be able to get him up on a procedure table safely. I then thought that if we successfully placed a [place] tip catheter (which is placed over a guidewire) we might be able to offer him catheter changes in our office as long as his wheelchair reclines. The procedure would involve passing a guidewire back through his catheter. Removing the catheter over the guidewire and then inserting his new catheter back over the guidewire. I discussed this possibility with the patient and he is agreeable. Objective Last Vital Signs Temp 36.6 C 03/31/24 00:46 Pulse 78 03/31/24 00:46 Resp 24 03/31/24 00:46 BP 134/87 03/31/24 00:46 Pulse Ox 97 03/31/24 00:46 Laboratory Results - last 24 hr 03/30/24 03/30/24 03/31/24 11:10 12:35 06:15 WBC 5.12 RBC 4.07 L Hgb 10.0 L Hct 34.0 L MCV 84 MCH 24.6 L MCHC 29.4 L RDW 16.7 H Plt Count 188 MPV 11.0 Immature Gran % 0.2 Neutrophils % 55.2 Lymphocytes % 29.9 Monocytes % 10.0 Eosinophils % 4.3 Basophils % 0.4 Nucleated RBC % 0.0 Absolute Neutrophils 2.83 Absolute Lymphocytes 1.53 Absolute Monocytes 0.51 Absolute Eosinophils 0.22 Absolute Basophils 0.02 Sodium 141 Potassium 4.0 Chloride 104 Carbon Dioxide 32.7 H Anion Gap 4.3 BUN 9 Creatinine 0.6 L Est GFR (CKD-EPI 2020) 129.10 Glucose 123 H Calcium 8.0 L Magnesium 1.8 Vancomycin Trough Cancelled 12.7 Time Spent with Patient Time Spent with Patient: <25 minutes Time was spent: preparing to see the patient(eg.review tests), referring, communicating with other health respiratory care assistant and counseling the patient
[2024-03-31 07:57] VITALS: BP 129/77; PULSE 72; RESP 18; TEMP 37.8; O2SAT 89
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
[2024-03-31] MEDS: Oxybutynin 5 MG TAB PO ×2 (08:48→14:28)
[2024-03-31] MEDS: MORPHine CR 15 MG TABCR PO (08:48)
--- NOTE | 2024-03-31 09:26 | W.PM.PROGNOT ---
Date of Service Date of service: 03/31/24 Time of Service: 09:26 Assessment and Plan Assessment and plan (1) UTI (urinary tract infection): Status: Acute Assessment and plan: UTI, and multiple scrotal ulcers. At risk for bacteremia but overall clinical impression is not a picture of sepsis at present. Will continue Zosyn and Vanco pending cultures. Will need Arguello changed out and properly positioned but will defer to Urology as my understanding is that placement of catheter has been problematic in past. Will also consult for wound care. Patient was asymptomatic urine showing staph which might have been a contaminant as per urology consult does not need to treat asymptomatic bacteriuria in patient with CIC or indwelling catheters Cultures growing MRSA: Patient will have a urology procedure done we will transition from vancomycin to linezolid IV and transition to oral at discharge (2) Neurogenic bladder: Status: Acute Assessment and plan: Seen by Dr. Ramos for urology consult. Ureteral catheter to be placed today in the room Oxybutynin started and will continue (3) Decubitus ulcer: Status: Acute Assessment and plan: Wound to ischium perineum and scrotum prior to arrival. As per surgical consult not an obvious source of infection recommendation to reposition Arguello and pressure offloading and paying careful attention to wound during toileting Patient already followed in wound clinic at [facility] as per surgery will work well manage Continue outpatient management when discharge Objective Last Vital Signs Temp 37.8 C H 03/31/24 07:57 Pulse 72 03/31/24 07:57 Resp 18 03/31/24 07:57 BP 129/77 03/31/24 07:57 Pulse Ox 89 L 03/31/24 07:57 Laboratory Results - last 24 hr 03/30/24 03/30/24 03/31/24 11:10 12:35 06:15 WBC 5.12 RBC 4.07 L Hgb 10.0 L Hct 34.0 L MCV 84 MCH 24.6 L MCHC 29.4 L RDW 16.7 H Plt Count 188 MPV 11.0 Immature Gran % 0.2 Neutrophils % 55.2 Lymphocytes % 29.9 Monocytes % 10.0 Eosinophils % 4.3 Basophils % 0.4 Nucleated RBC % 0.0 Absolute Neutrophils 2.83 Absolute Lymphocytes 1.53 Absolute Monocytes 0.51 Absolute Eosinophils 0.22 Absolute Basophils 0.02 Sodium 141 Potassium 4.0 Chloride 104 Carbon Dioxide 32.7 H Anion Gap 4.3 BUN 9 Creatinine 0.6 L Est GFR (CKD-EPI 2020) 129.10 Glucose 123 H Calcium 8.0 L Magnesium 1.8 Vancomycin Trough Cancelled 12.7
--- NOTE | 2024-03-31 09:42 | NUR.NOTE ---
Nursing Note: While drawing labs from midline this morning, pt fell asleep. He woke up suddenly and yelled I don't want to be alone! Assured pt he was not alone and notified primary nurse
[2024-03-31 09:52] LABS: Vancomycin, Random 22.5 ug/mL
[2024-03-31] MEDS: LINEZOLID 600 MG/300 ML BAG 300 MG IVPB (10:22)
[2024-03-31] MEDS: MORPHine 2 MG/ML SYR IVP (12:02)
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
--- NOTE | 2024-03-31 14:58 | DSE_ITS ---
Date of service: 03/31/24 Time of Service: 14:58 DS: Diagnosis Discharge Diagnosis (1) Neurogenic bladder: Status: Acute Discharge Plan Disposition Patient Disposition: Home W/Home Health Services Condition: Improving Discharge Details Reason For Visit: UTI, scrotal ulcers Admit Date/Time: 03/29/24 02:42 Admit Provider: Abelino Charles Attending Provider: Joellen Lux Primary Care Provider: Clarissa Hunt Hospital Course Hospital Course: This 33 years old male patient with past medical history of paraple raven, chronic ulcers to his sacrum, lower extremities and scrotum previous DVT treated with blood thinners, chronic severe back pain, neurogenic bladder with chronic indwelling Arguello catheter, bipolar disorder, MRSA infection, previously Carbapenem resistant urinary tract infection, previous admissions to [facility] in [facility] presented to the ED at [facility] on 03/29/2024 via EMS for evaluation of fever. Patient reported being recently at [facility] about a week prior to presentation where he was found to have a urinary tract infection he was treated with ciprofloxacin and then discharge. He had noted an improvement in his aches and chills as well as fever however 2 days prior to be sensation he reported the return of the symptoms. The patient took his last dose of ciprofloxacin on the day of presentation. The patient had no other complaints at the time. In the ED was significant for no leukocytosis, hemoglobin at 10.4, chemistry was unremarkable, UA was positive for UTI and later growing MRSA for which the patient was initially treated with the piperacillin/tazobactam and vancomycin. Both were discontinued and the patient was treated with linezolid which will con tinue at discharge to treat symptomatic UTI in the presence of an indwelling urinary catheter. Urology was consulted and the ureteral catheter was inserted and oxybutynin was initiated for probable bladder spasm. The patient presented with multiple wounds to the ischium, perineal and scrotum. Surgical consult was completed with no need for any interventions at this time noninfectious and probably not her source of infection. Surgery also recommended to continue wound management at document [facility] wound clinic as well as wound care rounds toileting times. Pelvic CT showed a tract from the skin towards the inferior pubic ramus on the left side and there is increased density now evident throughout the left inferior pubic ramus concerning for osteom yelitis. MRI was not a possibility due to maximum diameter of 70 cm. Orthopedics was consulted, and was no recommendation for interventions but ID consult was recommended. [facility] [place] and callback was pending. As the patient blood cultures are negative x 48 hours and as per consult with surgery and orthopedics both at [facility] [place] at [facility] we will discharge the patient today on oral linezolid, short course of scheduled acetaminophen and ibuprofen, oxybutynin short course of morphine ER 15 mg extended release twice a day. The patient will have to consult his primary care practitioner for chronic pain management. The patient will have to follow-up with Dr. Ramos in urology. Patient will be discharged home with home health for PT, OT, nursing, nuclear medicine medical director. The patient will have to follow-up with his primary practitioner within 7 days of discharge. Discussed with Dr. Fajardo. Home Meds and New Rx's Prescriptions: New morphine 15 mg tablet extended release 15 mg PO Q12H Qty: 8 0RF acetaminophen 500 mg tablet 1,000 mg PO Q6H Qty: 40 0RF ibuprofen 600 mg tablet 600 mg PO QID Qty: 20 0RF oxybutynin chloride 5 mg tablet 5 mg PO TID Qty: 90 0RF linezolid 600 mg tablet 600 mg PO BID Qty: 14 0RF Discharge Instructions Referrals: Clarissa Hunt APRN [Primary Care Provider] - 04/14/24 10:00 am Jose G Ramos MD [ [facility] STAFF PHYSICIAN] - (Follow-up in a month in the office , please asked to bring his reclining wheelchair as we are not able to get him up on our exam table safely.) Activity:: Activity as Tolerated Equipment/Supplies:: W/C Diet:: As Tolerated Discharge Orders Discharge Orders: Discharge Order (Routine); Ordered 03/31/24 Ordered By: Susan Lemus DS: Summary Time Spent with Patient providing and/or coordinating discharge services: Greater than 30 minutes Status at Discharge Functional status at discharge: wheelchair bound Overall status at discharge: patient is progressing back to baseline Mental Status: mental status grossly normal Speech and Movement: speech and movement normal Mood: congruent mood Affect: labile affect and anxious affect Quality:SDOH Health Related Social Needs: No Data to Display Exam Narrative Exam Narrative: Alert and oriented x 3 without acute distress, patient is somnolent but arousable with tactile stimuli. S1-S2, regular, clear lungs with decreased bases,abd is not distended soft-nontender,, no CVA tenderness, c/o of scrotal pain. Psych Mental Status: mental status grossly normal Speech and Movement: speech and movement normal Mood: congruent mood Affect: labile affect and anxious affect DS: Data Vitals/I&O Vitals and I&O: Vital Signs Temperature 37.8 C H 03/31/24 07:57 Temperature Source Temporal Artery Scan 03/31/24 07:57 Pulse 72 03/31/24 07:57 Pulse Rhythm Regular 03/29/24 04:46 Pulse 89 03/29/24 04:10 Respiratory Rate 18 03/31/24 07:57 Respiratory Effort Normal 03/29/24 04:46 Respiratory Depth Shallow 03/29/24 04:46 Respiratory Pattern Hyperpnea 03/29/24 04:46 Blood Pressure 129/77 03/31/24 07:57 Blood Pressure Mean 100 03/29/24 03:02 Pulse Oximetry 89 L 03/31/24 07:57 Oxygen Delivery Method Nasal Cannula 03/31/24 07:57 Oxygen Flow Rate 1 03/31/24 07:57 Pain Level 10 03/31/24 12:02 Comment pT is removing their O2 consistently. pT educated on why he must have his O2 on his face at all times. 03/31/24 07:57 Comment 2L NC 03/29/24 01:10 Intake & Output 03/30/24 03/31/24 03/31/24 23:59 11:59 23:59 Intake Total 1340 / 1940 670 / 670 Output Total 250 / 1450 500 / 500 Balance 1090 / 490 170 / 170 Intake: IV 1100 / 1700 550 / 550 Oral 240 / 240 120 / 120 Output: Urine 250 / 1450 500 / 500 Other: Urine Color Yellow Yellow Straw Urine Appearance Cloudy Clear Cloudy Sediment Stool Size Large Stool Characteristics Formed Brown Data Completed and Pending Labs on day of discharge: Labs from last 24 hours 03/31/24 03/31/24 09:15 06:15 WBC 5.12 RBC 4.07 L Hgb 10.0 L Hct 34.0 L MCV 84 MCH 24.6 L MCHC 29.4 L RDW 16.7 H Plt Count 188 MPV 11.0 Immature Gran % 0.2 Neutrophils % 55.2 Lymphocytes % 29.9 Monocytes % 10.0 Eosinophils % 4.3 Basophils % 0.4 Nucleated RBC % 0.0 Absolute Neutrophils 2.83 Absolute Lymphocytes 1.53 Absolute Monocytes 0.51 Absolute Eosinophils 0.22 Absolute Basophils 0.02 Sodium 141 Potassium 4.0 Chloride 104 Carbon Dioxide 32.7 H Anion Gap 4.3 BUN 9 Creatinine 0.6 L Est GFR (CKD-EPI 2020) 129.10 Glucose 123 H Calcium 8.0 L Magnesium 1.8 Random Vancomycin 22.5 Preliminary micro results at discharge 03/28/24 22:50 Urine Culture - Preliminary Urine - Cath Arguello Indwelling Staph aureus, MRSA Enterococcus faecium 03/28/24 22:50 Blood Culture - Preliminary Blood NO GROWTH 48 HOURS 03/28/24 22:26 Blood Culture - Preliminary Blood NO GROWTH 48 HOURS PFSH All Active Problems (Updated 03/29/24 @ 05:24 by Jayesh Bedoya DO) Decubitus ulcer (Acute) Scrotal ulcer (Acute) Urinary tract infection (Acute) Sepsis (Acute) UTI (urinary tract infection) (Acute) Chronic indwelling Arguello catheter (Acute) Left knee pain (Acute) Onychomycosis (Acute) Right knee pain (Acute) Elevated hemoglobin A1c (Acute) Preventative health care (Acute) Hypogonadism in male (Acute) Neurogenic bowel (Acute) GERD (gastroesophageal reflux disease) (Chronic) Chronic leg pain (Acute) Chronic back pain (Acute) Neurogenic bladder (Acute) Wheelchair bound (Acute) Chronic complete spastic paraplegia (Acute) PTSD (post-traumatic stress disorder) (Acute) Depression (Chronic) Anxiety (Chronic) Morbid obesity (Acute) Medical History Osteomyelitis Foot ulcer Tibia/fibula fracture Isiah placement Acetabulum fracture Open fracture of forearm H/O methicillin resistant Staphylococcus aureus Peripheral edema Right hip pain H/O deep venous thrombosis Snoring Daytime somnolence Chronic pain Social History Smoking/Tobacco Use Status: Never Smoking risk assessment performed?: Yes Alcohol Intake: current Alcohol Intake frequency: holidays/special occasions only Drug use: Occasionally Substance use type: marijuana Details: Has tried marijuana in the past, makes nerve pain worse, denies others. Adopted: No Caregiver/Support person: No Foster care: No Household members: children Housing: house Number of Children: 2 number of grandchildren: 0 Education Level: high school Do you need help understanding health information?: Never current occupation: disabled Pets and animals: Yes (2) Pets and animals: cat(s) and dog(s) Sexually active: No Do you think of yourself as: straight/heterosexual Current gender identity: male What is your relationship status?: How often do you talk on the phone with friends or family?: three or more times per week How often do you get together with friends or relatives?: three or more times per week How often do you attend muslim or sikhism services?: decline to answer Do you belong to any clubs or organized social groups?: no Panel score (0-1 are the most socially isolated patients): 1 What type of physical activity do you participate in: none Joslyn/Roman Catholic: None Seatbelt use: always Helmet use: No Drive intox or ride w/intox electric mule driver: No Do you feel safe at home: Yes Do you feel safe in your relationship?: Yes Time Spent with Patient Time Spent with Patient: >85 minutes Time was spent: preparing to see the patient(eg.review tests), obtaining and/or reviewing separately otained hiistory, ordering medications,tests, procedures, referring, communicating with other health laboratory animal caretaker, indepentently interpreting results, counseling the patient and care coordination
--- NOTE | 2024-03-31 15:45 | PT.INNT ---
PT Notes Visit Reasons: UTI, scrotal ulcers Physical Therapy Inpatient Initial Evaluation Date: [] Referring Doctor: [] PT Orders: PT CONSULT: [] Precautions: Fall. Standard. Activity as tolerated. Patient Profile/Admitting Diagnosis: [] PMHX: [] Social History/Home Situation: [] Equipment Owned/DME: [] Subjective: [] Objective: [] General Observation: [] Mental Status: Alert and oriented as to person, place, time, and purpose. Able to pay attention, focus, and respond appropriately. Pain: []/10 in [] [] Vital Signs: [] ROM: Right Upper Extremity: Shoulder Flexion WFL. Shoulder abduction WFL. Elbow flexion WFL. Wrist flexion WFL. Functional opening and closing of hand WFL. Left Upper Extremity: Shoulder Flexion WFL. Shoulder abduction WFL. Elbow flexion WFL. Wrist flexion WFL. Functional opening and closing of hand WFL. Right Lower Extremity: Hip flexion WFL. Hip abduction WFL. Knee flexion WFL. Ankle dorsiflexion WFL. Ankle plantarflexion WFL. Left Lower Extremity: Hip flexion WFL. Hip abduction WFL. Knee flexion WFL. Ankle dorsiflexion WFL. Ankle plantarflexion WFL. Strength: Right Upper Extremity: Shoulder flexors []/5. Shoulder abductors []/5. Elbow flexors []/5. Elbow extensors []/5. Web Support Engineer strong. Left Upper Extremity: Shoulder flexors []/5. Shoulder abductors []/5. Elbow flexors []/5. Elbow extensors []/5. Web Support Engineer strong. Right Lower Extremity: Hip flexors []/5. Hip abductors []/5. Knee flexors []/5. Knee extensors []/5. Ankle dorsiflexors []/5. Ankle plantarflexors []/5. Left Lower Extremity: Hip flexors []/5. Hip abductors []/5. Knee flexors []/5. Knee extensors []/5. Ankle dorsiflexors []/5. Ankle plantarflexors []/5. Bed Mobility/Transfers: Rolling with [] cues for safe/correct technique Supine to sit with [] cues for safe/correct technique Sit to supine with [] cues for safe/correct technique Sit to stand with [] with [] cues for safe/correct technique Stand to sit with [] with [] cues for safe/correct technique Bed to bedside commode with [] with [] cues for safe/correct technique Bedside commode to bed with [] with [] cues for safe/correct technique Bed to reclining chair with [] with [] cues for safe/correct technique Reclining chair to bed with [] with [] cues for safe/correct technique Gait: Instructed patient with level surface ambulation of [] feet requiring [] assist. Sugar []. Step height []. Step length []. Balance: Static Sitting: [] Dynamic Sitting: [] Static Standing: [] Dynamic Standing: [] Special Tests: Mobility Limitations Standardized Measure [facility] AM-PAC 6 clicks [facility] Mobility Inpatient Short Form: Raw Score: [] CMS Score: []% deficit Informed Consent/Education: Patient was instructed in purpose of PT consult and plan of care. Agreeable to proceed with established PT POC to achieve personal goals. Assessment: Patient presents with clinical signs and symptoms consistent with current/admitting diagnoses that have resulted to mobility limitations, gait instability, generalized weakness, and overall ADL decline as demonstrated by the following impairment level findings: 1. Decreased strength to [] [] major muscle groups 2. Impaired sitting/standing balance 3. Impaired activity tolerance 4. Limitation of joint range of motion in [] 5. Shortness of breath 6. Swelling Impairments are contributing to the following functional limitations: 1. Decline in bed mobility skills 2. Decline in transfer skills 3. Difficulty with ambulation without assistive device and physical assistance 4. Increased completion time for mobility ADL performance 5. Increased risk for falls 6. Difficulty with managing steps alone safely Patient is assessed as a [] complexity based on the following: History: []-year-old [] with past medical history as indicated above Examination: Demonstrable impairment in strength, balance, and mobility level with underlying impairments and functional limitations as exhibited above as well as deficit score of []% utilizing the [facility] Mobility Inpatient Short Form Presentation: [] Decision Making: [] complexity Goals: Goals X1 week 1. Supine-Sit independent 2. Sit-Supine independent 3. Sit-Stand independent 4. Stand-Sit independent with [] 5. Bed-Chair independent with [] 6. Chair-Bed independent with [] 7. Independent gait on level surface with use of [] for at least [] feet without report of pain nor dyspnea 8. Independent stair negotiation while holding onto [] rails for at least [] steps without report of pain nor dyspnea 9. Independent with home exercise program 10. Good static and dynamic standing balance/tolerance Plan of Care/Treatment Plan: 1-2x/day, 7 days/week x 1 week. Plan of care has been reviewed with the DROPHAMMER OPERATOR providing the service under Physical Therapy direction. Initiate Physical Therapy intervention for pain management as needed, strengthening, bed mobility, transfers, gait, stairs, balance training, and use of assistive device. DISCHARGE RECOMMENDATIONS: [] Home with no services [] [] Home with services [specify] [] Home with outpatient PT [] [] SNF for continued rehabilitation [] [] Front End Technician Care [] [] SNF versus LTC based on ability to participate and progress [] TREATMENT CODE/TIME: [] Thank you for the opportunity to participate in the care of this patient. Sharmila Barreto PT, DPT, CLT [facility] [place], [place]
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
--- NOTE | 2024-03-31 16:00 | PDOC.HHF2F ---
Home Health Referral Home Health Orders Clinical synopsis of why skilled professionals are needed: This 33 years old male patient with past medical history of paraplegia, chronic ulcers to his sacrum, lower extremities and scrotum previous DVT treated with blood thinners, chronic severe back pain, neurogenic bladder with chronic indwelling Arguello catheter, bipolar disorder, MRSA infection, previously Carbapenem resistant urinary tract infection, previous admissions to [facility] in [facility] presented to the ED at [facility] on 03/29/2024 via EMS for evaluation of fever. Patient reported being recently at [facility] about a week prior to presentation where he was found to have a urinary tract infection he was treated with ciprofloxacin and then discharge. He had noted an improvement in his aches and chills as well as fever however 2 days prior to be sensation he reported the return of the symptoms. The patient took his last dose of ciprofloxacin on the day of presentation. The patient had no other complaints at the time. In the ED was significant for no leukocytosis, hemoglobin at 10.4, chemistry was unremarkable, UA was positive for UTI and later growing MRSA for which the patient was initially treated with the piperacillin/tazobactam and vancomycin. Both were discontinued and the patient was treated with linezolid which will continue at discharge to treat symptomatic UTI in the presence of an indwelling urinary catheter. Urology was consulted and the ureteral catheter was inserted and oxybutynin was initiated for probable bladder spasm. The patient presented with multiple wounds to the ischium, perineal and scrotum. Surgical consult was completed with no need for any interventions at this time noninfectious and probably not her source of infection. Surgery also recommended to continue wound management at document [facility] wound clinic as well as wound care rounds toileting times. Pelvic CT showed a tract from the skin towards the inferior pubic ramus on the left side and there is increased density now evident throughout the left inferior pubic ramus concerning for osteomyelitis. Orthopedics was consulted, and was no recommendation for interventions but ID consult was recommended. [facility] [place] ID was consulted and Dr. Lorenzo's recommendation are to treat if clinically unstable but improved mobility and nutrition might also help. As the patient blood cultures are negative x 48 hours and as per consult with surgery and orthopedics services both at [facility] [place] and at [facility], we will discharge the patient today on oral linezolid, short course of scheduled acetaminophen and ibuprofen, oxybutynin short course of morphine ER 15 mg extended release twice a day. The patient will have to consult his primary care practitioner for chronic pain management. The patient will have to follow-up with Dr. Ramos in urology. Patient will be discharged home with home health for PT, OT, nursing, medical record administrator. The patient will have to follow-up with his primary practitioner within 7 days of discharge. Home health nursing to retrieve wound care orders from [facility] [place] wound clinic for ongoing care, please. In the mean time wash with periwash, dry and cover with mepilex every 3 days, please. Assist patient in achieving adequate adela-wound hygiene care with toileting, please. Discussed with Dr. Fajardo. Physical Therapist: Check all that apply Increase strength & endurance for safe mobility at home: Ordered Occupational Therapist: Evaluate and treat for patient unable to perform ADL/IADL/self-care: Ordered Room Service Manager: Assist with community resources: Ordered Assist with fci care planning: Ordered Encounter Date and Reason: I certify that a FTF encounter for this patient was performed on March 31, 2024 and that such encounter was related to the primary reason the patient requires home health services. The encounter was conducted in the following manner: By me as the certifying physician, TECHNOLOGY AND ENGINEERING TEACHER, PA or By an inpatient physician, TECHNOLOGY AND ENGINEERING TEACHER or PA during an inpatient stay who communicated findings to me, Certification And Authentication I certify that I composed the above information based on my clinical judgment relating to this patient's medical condition and, if applicable, clinical findings communicated to me by the NPP or inpatient physician who performed the FTF encounter. clarissa Name of Provider that will be monitoring home health services: Clarissa Hunt
[2024-03-31] MEDS: MORPHine 2 MG/ML SYR 1 MG IVP (16:22)
--- NOTE | 2024-03-31 18:01 | PDOC.CMDIS ---
Date of service: 03/31/24 Time of Service: 17:00 LACE Index Scoring Tool Questions: Length of Stay (in days): 2 Was the patient admitted via the E.D.?: Yes E.D. Visits: 1 Answers: Total Score: 6 Risk of Readmission: Low Risk Care Management Discharge Plan Reason for Hospitalization: UTI Discharge Plan: Thony was discharged home with no new services. Provider offered HH RN and PT, but Thony would not sign the service agreement that [facility] was requiring of him. Thony is aware that he will not be having any HH services. Thony will f/u with his PCP on 04/14 and with urology in 1 month. Thony was transported home via EMS as coordinated by CM. Patient/Family Education Needs: Review of discharge instructions, activity, limitations, plan of care and discuss ask me 3. SDOH Health Related Social Needs: No Data to Display
== END 2024-03-31 17:08 | disposition home health service (06) | DRG 690 ==
LOC: ER 03-29 03:08 → MS 03-29 04:40
PROVIDERS: Family Medicine; Admitting Provider General Practice; Emergency Provider Student in an Organized Health Care Education/Training Program; PCP Nurse Practitioner Family; Responsible Provider Nurse Practitioner Acute Care; Visit Provider Nurse Practitioner Family
DX: N39.0 Urinary tract infection, site not specified (principal); K59.2 Neurogenic bowel, not elsewhere classified; G82.21 Paraplegia, complete; Z68.41 Body mass index [BMI] 40.0-44.9, adult; E11.9 Type 2 diabetes mellitus without complications; E66.01 Morbid (severe) obesity due to excess calories; F31.9 Bipolar disorder, unspecified; N31.9 Neuromuscular dysfunction of bladder, unspecified; L89.892 Pressure ulcer of other site, stage 2; I89.0 Lymphedema, not elsewhere classified; B95.62 Methicillin resistant Staphylococcus aureus infection as the cause of diseases classified elsewhere; R25.2 Cramp and spasm; F43.10 Post-traumatic stress disorder, unspecified; K21.9 Gastro-esophageal reflux disease without esophagitis; G89.29 Other chronic pain; F41.9 Anxiety disorder, unspecified; Z99.3 Dependence on wheelchair; V89.2XXS Person injured in unspecified motor-vehicle accident, traffic, sequela; L89.159 Pressure ulcer of sacral region, unspecified stage
CPT/HCPCS: 36410; 51703 ×2; 52000; 00123; 36415; 74177; 80048; 80053; 80307; 84145; 87040; 87077; 87637; 87641; 96365; 96366; 96375; 96376; 97163; 99291; J1650; 71260; 80202; 81003; 81015; 83605; 83735; 85025; 86140; 87086; 87186; 99223; 99233; 99239; J1171; J1885; J2020; J2060; J2270; J2543; J3370; J3490

== ENCOUNTER 2024-08-09 20:43 | Inpatient (IN) | payer MEDICAID, SELFPAY ==
[2024-08-09] VITALS (24 sets, daily range): BP systolic 105–124; BP diastolic 51–59; PULSE 79–99; RESP 13–36; TEMP 37.4; O2SAT 82–99
--- NOTE | 2024-08-09 21:00 | DI.RAD_ITS ---
Exam(s) XR FOOT RT COMPLETE EXAM: XR FOOT RT COMPLETE CLINICAL HISTORY: wound. TECHNIQUE: 2D digital imaging was performed. Three views. COMPARISON: No exams were available for comparison FINDINGS: Exam is limited by diffuse osteopenia. BONES: No acute fracture is present. There is a large soft tissue wound which partially obscures visualization of the base of the 5th metatarsal. Bony erosions are not excluded. Hardware noted in distal tibia. JOINTS: No dislocation present. Degenerative changes. SOFT TISSUE: Marked soft tissue swelling. Large lateral plantar wound. No foreign body. IMPRESSION: Large soft tissue wound marked soft tissue swelling. Limited visualization of the base of the 5th metatarsal. Bony erosions are not excluded. No evidence of fracture. The preliminary [facility] report was reviewed. DATA REPOSITORY: RADIATION DOSE DELIVERED:
[2024-08-09 22:08] LABS: Abs Immature Grans 0.03 10^3/uL (0.0-0.06); HCT 34.0 % (40.0-50.0); HGB 10.4 g/dL (13.5-17.5); Immature Grans % 0.3 %; MCH 24.8 pg (27.0-33.0); MCHC 30.6 % (32.0-36.0); MCV 81 fL (80-95); MPV 11.3 fL (8.0-11.0); Platelet Count 238 10^3/uL (130-400); RBC 4.20 10^6/uL (4.36-5.78); RDW 16.1 % (11.8-14.1); RDW-SD 47.6 fL; WBC 10.69 10^3/uL (4.4-10.8)
[2024-08-09 22:10] LABS: ESR 51 mm/hr (0-15)
[2024-08-09 22:18] LABS: INR 1.2 (0.9-1.1); Prothrombin Time 12.2 sec (9.1-11.1)
[2024-08-09] MEDS: HYDROmorphone 2 MG/ML SYR 1 MG IVP (22:23)
[2024-08-09 22:27] LABS: ALT 22 U/L (16-63); AST 15 U/L (15-37); Albumin 2.8 g/dL (3.4-5.0); Alkaline Phosphatase 55 U/L (46-116); Anion Gap 3.0 mmol/L (3-11); BUN 13 mg/dL (7-18); Bilirubin, Total 0.4 mg/dL (0.2-1.0); CO2 34.0 mmol/L (21.0-32.0); Calcium 8.7 mg/dL (8.5-10.1); Chloride 100 mmol/L (98-107); Estimated GFR 117.63 (mL/min/1.73m2); Glucose 96 mg/dL (74-106); Potassium 3.7 mmol/L (3.5-5.1); Sodium 137 mmol/L (136-145); Total Protein 8.6 g/dL (6.4-8.2)
[2024-08-09 22:40] LABS: Procalcitonin < 0.10 ng/mL
--- NOTE | 2024-08-09 23:07 | ED.GENADUL_ITS ---
Discharge Plan Disposition Patient Disposition: Admit to [facility] Condition: Fair Discharge Details Clinical Impression: Open wound of right foot, Chronic complete spastic paraplegia Primary Care Provider: Clarissa Hunt ED Provider: Susana Herman Home Meds and New Rx's Prescriptions: No Action acetaminophen 500 mg tablet 1,000 mg PO Q6H Qty: 40 0RF ibuprofen 600 mg tablet 600 mg PO QID Qty: 20 0RF HPI General Date/Time Provider Initiated Documentation: 08/09/24 21:01 . Limitations to Documentation: no limitations . Information obtained by: patient . HPI Narrative: 34-year-old gentleman with past medical history of paraplegia, obesity, chronic pressure wounds presenting for evaluation of right foot wound. He reports that he has a ulceration of his foot. He reports that he maintains sensation in the foot and that it is very painful. There is been a foul smell and drainage from the foot. He was seen by his wound care doctor at [facility] 2 days ago and they recommended hospitalization for further wound management, but at that time he was not able to do so because he had childcare issues. He reports that today is the first day that he can return to the hospital. Reports significant pain in his foot. He denies any fever. He is not currently on antibiotics. Related Data Home Medications ?Medication ?Instructions ?Recorded ?Confirmed acetaminophen 500 mg tablet 1,000 mg (2 x 500 mg) PO Q 6H #40 03/31/24 08/09/24 tabs ibuprofen 600 mg tablet 600 mg PO QID #20 tabs 03/3108/09/24 Previous Rx's ?Medication ?Instructions ?Recorded acetaminophen 500 mg tablet 1,000 mg (2 x 500 mg) PO Q 6H #40 03/31/24 tabs ibuprofen 600 mg tablet 600 mg PO QID #20 tabs 03/31 Allergies Allergy/AdvReac Type Severity Reaction Status Date / Time erythromycin base Allergy Intermediate Hives Verified 04/14/24 09:38 General Stated Complaint: Cellulitis MAYA: 3 Exam Narrative Exam Narrative: Review of Systems: All systems reviewed & are unremarkable except as noted in HPI and below Obese, no acute distress afebrile NCAT RRR Unlabored respiratory effort Nondistended abdomen , suprapubic cath bilateral lower extremity paraplegia sensation in tact right foot with 5x5 ulcerated wound on plantar surface. foul smelling + drainage Course Vital Signs Vital signs: Vital Signs Temperature 37.4 C 08/09/24 20:42 Pulse 95 H 08/09/24 20:42 Respiratory Rate 16 08/09/24 20:42 Blood Pressure 115/51 L 08/09/24 20:42 Pulse Oximetry 98 08/09/24 20:42 Temperature 37.4 C 08/09/24 20:48 Pulse 88 08/09/24 22:20 Pulse 89 08/09/24 22:20 Respiratory Rate 33 H 08/09/24 22:20 Blood Pressure 124/59 L 08/09/24 21:02 Blood Pressure Mean 79 08/09/24 21:02 Pulse Oximetry 93 08/09/24 22:20 Pain Level 10 08/09/24 20:48 Lab/Test Results Lab/Test Results: 08/09/24 21:55 Foot - Right Wound Culture - Pending 08/09/24 21:55 Foot - Right Gram Stain - Final 08/09/24 21:55 Blood Blood Culture - Pending 08/09/24 21:40 Blood Blood Culture - Pending Laboratory Tests Range/Units 08/09/24 21:55 WBC (4.4-10.8) 10^3/uL 10.69 RBC (4.36-5.78) 10^6/uL 4.20 L Hgb (13.5-17.5) g/dL 10.4 L Hct (40.0-50.0) % 34.0 L MCV (80-95) fL 81 MCH (27.0-33.0) pg 24.8 L MCHC (32.0-36.0) % 30.6 L RDW (11.8-14.1) % 16.1 H Plt Count (130-400) 10^3/uL 238 MPV (8.0-11.0) fL 11.3 H Immature Gran % % 0.3 Neutrophils % % 73.0 Lymphocytes % % 17.9 Monocytes % % 5.5 Eosinophils % % 2.8 Basophils % % 0.5 Nucleated RBC % (0.0-0.3) % 0.0 Absolute Neutrophils (1.2-6.7) 10^3/uL 7.81 H Absolute Lymphocytes (1.2-3.4) 10^3/uL 1.91 Absolute Monocytes (0.1-0.8) 10^3/uL 0.59 Absolute Eosinophils (0.0-0.7) 10^3/uL 0.30 Absolute Basophils (0.0-0.2) 10^3/uL 0.05 ESR (0-15) mm/hr 51 H PT (9.1-11.1) sec 12.2 H INR (0.9-1.1) 1.2 H VBG Lactate (<or=2.0) mmol/L 1.0 Sodium (136-145) mmol/L 137 Potassium (3.5-5.1) mmol/L 3.7 Chloride (98-107) mmol/L 100 Carbon Dioxide (21.0-32.0) mmol/L 34.0 H Anion Gap (3-11) mmol/L 3.0 BUN (7-18) mg/dL 13 Creatinine (0.70-1.30) mg/dL 0.8 Est GFR (CKD-EPI 2020) (mL/min/1.73m2) 117.63 Glucose (74-106) mg/dL 96 Calcium (8.5-10.1) mg/dL 8.7 Total Bilirubin (0.2-1.0) mg/dL 0.4 AST (15-37) U/L 15 ALT (16-63) U/L 22 Alkaline Phosphatase (46-116) U/L 55 Total Protein (6.4-8.2) g/dL 8.6 H Albumin (3.4-5.0) g/dL 2.8 L Procalcitonin ng/mL < 0.10 Medical Decision Making emergent evaluation of right foot wound. pain and drainage and appearance worsening. no fever or signs of systemic illness. wound appears infected and high suspicion for osteo. no known diagnosis of DM. labs reviewed, wbc 10. chronic anemia, at baseline. esr and crp are very elevated. on xray i don't appreciate signs of gas. cultures have been obtained. I will cover with broad spectrum abx. discussed [facility] hospitalist and will admit for further management. PFSH All Active Problems (Updated 08/09/24 @ 23:19 by Susana Herman MD) Open wound of right foot (Acute) Hospital discharge follow-up (Acute) Chronic urinary tract infection (Acute) Back pain (Acute) Decubitus ulcer (Acute) Scrotal ulcer (Acute) Urinary tract infection (Acute) Sepsis (Acute) Chronic indwelling Arguello catheter (Acute) Left knee pain (Acute) Onychomycosis (Acute) Right knee pain (Acute) Elevated hemoglobin A1c (Acute) Preventative health care (Acute) Hypogonadism in male (Acute) Neurogenic bowel (Acute) GERD (gastroesophageal reflux disease) (Chronic) Chronic leg pain (Acute) Chronic back pain (Acute) Neurogenic bladder (Acute) Wheelchair bound (Acute) Chronic complete spastic paraplegia (Acute) PTSD (post-traumatic stress disorder) (Acute) Depression (Chronic) Anxiety (Chronic) Morbid obesity (Acute) Medical History Osteomyelitis Foot ulcer Tibia/fibula fracture Isiah placement Acetabulum fracture Open fracture of forearm H/O methicillin resistant Staphylococcus aureus Peripheral edema Right hip pain H/O deep venous thrombosis Snoring Daytime somnolence Chronic pain Social History Smoking/Tobacco Use Status: Never Smoking risk assessment performed?: Yes Alcohol Intake: current Alcohol Intake frequency: holidays/special occasions only Drug use: Occasionally Substance use type: marijuana Details: Has tried marijuana in the past, makes nerve pain worse, denies others. Adopted: No Caregiver/Support person: No Foster care: No Household members: children Housing: house Number of Children: 2 number of grandchildren: 0 Education Level: high school Do you need help understanding health information?: Never current occupation: disabled Pets and animals: Yes (2) Pets and animals: cat(s) and dog(s) Sexually active: No Do you think of yourself as: straight/heterosexual Current gender identity: male What is your relationship status?: How often do you talk on the phone with friends or family?: three or more times per week How often do you get together with friends or relatives?: three or more times per week How often do you attend zoroastrianism or muslim services?: decline to answer Do you belong to any clubs or organized social groups?: no Panel score (0-1 are the most socially isolated patients): 1 What type of physical activity do you participate in: none Joslyn/Yarsanism: None Seatbelt use: always Helmet use: No Drive intox or ride w/intox armor reconnaissance vehicle driver: No Do you feel safe at home: Yes Do you feel safe in your relationship?: Yes
[2024-08-09 23:09] LABS: C-Reactive Protein 7.43 mg/dL (<or=0.5)
[2024-08-09] MEDS: CEFEPIME 1 GM in Normal Saline 50 ML IVPB (23:14)
[2024-08-09] MEDS: VANCOMYCIN 1,000 MG in Normal Saline 250 ML 166.6666 MG IVPB (23:15)
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
[2024-08-09] MEDS: HYDROmorphone 2 MG/ML SYR IVP (23:21)
--- NOTE | 2024-08-09 23:23 | DI.[facility]AD_ITS ---
PROCEDURE INFORMATION: Exam: XR Right Foot Exam date and time: 08/09/2024 10:04 PM Age: 34 years old Clinical indication: Other: Wound TECHNIQUE: Imaging protocol: Radiologic exam of the right foot. Views: 3 or more views. COMPARISON: CT LOWER EXTREMITY RT W 02/27/2023 11:39 PM FINDINGS: Bones/joints: No acute fracture. Erosive changes identified of the base of the 5th metatarsal bone adjacent to a large soft tissue ulceration consistent with acute osteomyelitis. Diffuse osteopenia. Osteoarthritis of the interphalangeal joints as well as the tarsometatarsal joints. Soft tissues: Soft tissue edema. IMPRESSION: Acute osteomyelitis identified of the base of the 5th metatarsal bone adjacent to a large soft tissue ulcer. Dictated and Authenticated by: Ovidio Gutiérrez MD. Orderin Virgil Flores MD
[2024-08-10] VITALS (15 sets, daily range): BP systolic 111–143; BP diastolic 68–81; PULSE 65–107; RESP 11–24; TEMP 35.7–36.7; O2SAT 90–100
--- NOTE | 2024-08-10 00:24 | W.PC.ACHO ---
Registration Status: REG ER Primary Language: Preferred Language: ED Information & Data Chief Complaint Cellulitis 08/09/24 23:11 Triage Note wounds to buttock, wound to 08/09/24 20:42 right foot. pain is 10/, pt also concerned for uti, cath hasnt been changed in some time Medical / Surgical History (Last Reviewed 03/29/24 @ 02:31 by Abelino Charles MD) UTI (urinary tract infection) Osteomyelitis Foot ulcer Tibia/fibula fracture Acetabulum fracture Open fracture of forearm H/O methicillin resistant Staphylococcus aureus Peripheral edema Right hip pain H/O deep venous thrombosis Snoring Daytime somnolence Chronic pain Most Recent Vital Signs Temperature 37.4 C 08/09/24 20:48 Pulse 88 08/09/24 22:20 Pulse 89 08/09/24 22:20 Respiratory Rate 33 H 08/09/24 22:20 Blood Pressure 124/59 L 08/09/24 21:02 Blood Pressure Mean 79 08/09/24 21:02 Pulse Oximetry 93 08/09/24 22:20 Pain Level 10 08/09/24 20:48 Allergies erythromycin base Allergy (Intermediate, Verified 04/14/24 09:38) Hives Active Medications Generic Name Dose Route Start Last Admin Trade Name Freq PRN Reason Stop Dose Admin Hydromorphone HCl 2 mg 08/09/24 23:12 08/09/24 23:21 Hydromorphone 2 Mg/Ml Syr IVP 2 mg Q3H PRN PRN Administration IV IV Catheter Type [Right Saline Lock Forearm] IV Catheter Gauge [Right 20 Forearm] Diet Orders Category Date Time Status Regular/Normal [DIET] Nutrition 08/10/24 Breakfast Active Diagnostics 08/10/24 08/09/24 Range/Units 06:00 21:55 WBC Pending 10.69 (4.4-10.8) 10^3/uL RBC Pending 4.20 L (4.36-5.78) 10^6/uL Hgb Pending 10.4 L (13.5-17.5) g/dL Hct Pending 34.0 L (40.0-50.0) % MCV Pending 81 (80-95) fL MCH Pending 24.8 L (27.0-33.0) pg MCHC Pending 30.6 L (32.0-36.0) % RDW Pending 16.1 H (11.8-14.1) % Plt Count Pending 238 (130-400) 10^3/uL MPV Pending 11.3 H (8.0-11.0) fL Immature Gran % 0.3 % Neutrophils % 73.0 % Lymphocytes % 17.9 % Monocytes % 5.5 % Eosinophils % 2.8 % Basophils % 0.5 % Nucleated RBC % 0.0 (0.0-0.3) % Absolute Neutrophils 7.81 H (1.2-6.7) 10^3/uL Absolute Lymphocytes 1.91 (1.2-3.4) 10^3/uL Absolute Monocytes 0.59 (0.1-0.8) 10^3/uL Absolute Eosinophils 0.30 (0.0-0.7) 10^3/uL Absolute Basophils 0.05 (0.0-0.2) 10^3/uL ESR 51 H (0-15) mm/hr PT 12.2 H (9.1-11.1) sec INR 1.2 H (0.9-1.1) VBG Lactate 1.0 (<or=2.0) mmol/L Sodium Pending 137 (136-145) mmol/L Potassium Pending 3.7 (3.5-5.1) mmol/L Chloride Pending 100 (98-107) mmol/L Carbon Dioxide Pending 34.0 H (21.0-32.0) mmol/L Anion Gap Pending 3.0 (3-11) mmol/L BUN Pending 13 (7-18) mg/dL Creatinine Pending 0.8 (0.70-1.30) mg/dL Est GFR (CKD-EPI 2020) Pending 117.63 (mL/min/1.73m2) Glucose Pending 96 (74-106) mg/dL Calcium Pending 8.7 (8.5-10.1) mg/dL Total Bilirubin Pending 0.4 (0.2-1.0) mg/dL AST Pending 15 (15-37) U/L ALT Pending 22 (16-63) U/L Alkaline Phosphatase Pending 55 (46-116) U/L C-Reactive Protein 7.43 H (<or=0.5) mg/dL Total Protein Pending 8.6 H (6.4-8.2) g/dL Albumin Pending 2.8 L (3.4-5.0) g/dL Procalcitonin < 0.10 ng/mL 08/09/24 21:55 Wound Culture - Pending Foot - Right Gram Stain - Final 08/09/24 21:55 Blood Culture - Pending Blood 08/09/24 21:40 Blood Culture - Pending Blood Intake and Output - 24 Hour Total 08/09/24 20:41 thru 08/09/24 20:42 Weight 186.426 kg Problems (Last Reviewed 03/29/24 @ 02:31 by Abelino Charles MD) Open wound of right foot (Acute) Chronic back pain (Acute) Neurogenic bladder (Acute) Chronic complete spastic paraplegia (Acute) Morbid obesity (Acute) v v v v v v v v v Sending and/or Receiving Nurses: Please use comment section below to note any information pertinent to the patient hand-off not included above. Information / Comments:Vanco Tx renetta syndrome, 34 yo M. Increased pain and infection lower rt foot and heal. 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 Non febrile. Paraplegic, basic pivot. Report received from:Raz PITTMAN, [id number]
[2024-08-10] MEDS: Acetaminophen 325 MG TAB PO (01:36)
[2024-08-10] MEDS: HYDROmorphone 2 MG/ML SYR IVP ×6 (02:42→21:18)
[2024-08-10] MEDS: Acetaminophen 500 MG TAB 1000 MG PO ×3 (05:10→17:21)
[2024-08-10 05:27] LABS: MRSA PCR Positive (Negative)
[2024-08-10 07:29] LABS: HCT 33.7 % (40.0-50.0); HGB 10.2 g/dL (13.5-17.5); MCH 24.6 pg (27.0-33.0); MCHC 30.3 % (32.0-36.0); MCV 81 fL (80-95); MPV 10.8 fL (8.0-11.0); Platelet Count 224 10^3/uL (130-400); RBC 4.14 10^6/uL (4.36-5.78); RDW 16.4 % (11.8-14.1); RDW-SD 48.3 fL; WBC 7.46 10^3/uL (4.4-10.8)
[2024-08-10 07:57] LABS: ALT 20 U/L (16-63); AST 13 U/L (15-37); Albumin 2.7 g/dL (3.4-5.0); Alkaline Phosphatase 53 U/L (46-116); Anion Gap 3.7 mmol/L (3-11); BUN 15 mg/dL (7-18); Bilirubin, Total 0.4 mg/dL (0.2-1.0); CO2 33.3 mmol/L (21.0-32.0); Calcium 8.5 mg/dL (8.5-10.1); Chloride 101 mmol/L (98-107); Estimated GFR 135.56 (mL/min/1.73m2); Glucose 113 mg/dL (74-106); Potassium 3.9 mmol/L (3.5-5.1); Sodium 138 mmol/L (136-145); Total Protein 8.3 g/dL (6.4-8.2)
[2024-08-10] MEDS: Ibuprofen 600 MG TAB PO ×4 (08:48→20:15)
[2024-08-10] MEDS: Normal Saline Flush 10 ML SYR IVP ×4 (08:48→21:19)
[2024-08-10] MEDS: Enoxaparin 40 MG/0.4 ML SYR SC ×2 (08:48→20:15)
[2024-08-10] MEDS: CEFEPIME 2 GM in Normal Saline 100 ML IVPB ×2 (10:22→17:22)
[2024-08-10] MEDS: VANCOMYCIN/WATER (PEG) 2 GM/400 ML BAG IVPB ×2 (11:18→20:55)
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
--- NOTE | 2024-08-10 12:48 | PGE_ITS ---
Date of Service Date of service: 08/10/24 Time of Service: 12:48 Assessment and Plan Assessment and plan (1) Foot ulcer: Assessment and plan: Vanc and cefepime since admission 08/09, continue while we await culture results. Podiatry consult pending MRI pending, though XR we have does suggest osteomyelitis, MRI should elucidate extent. (2) Anxiety: Status: Chronic Assessment and plan: Chronic anxiety/depression/PTSD. He is asking for lorazepam but willing to try daily medication. Resume sertraline, which PCP Rx'd earlier this year (came off for linazolid, didn't get up to full dose) (3) Pressure sore on buttocks: Status: Acute Assessment and plan: Really perineal/base of scrotum This is being managed by wound clinic at . Notes on paper chart now. Continue wound care. (4) Neurogenic bladder: Status: Acute Assessment and plan: noted, pt has seen Dr Ramos in the past. Arguello changed. (5) Chronic complete spastic paraplegia: Status: Acute Assessment and plan: noted (6) Morbid obesity: Status: Acute Assessment and plan: consider nutrition consult, GLP-1 as outpatient as h/o pre-DM (7) DVT prophylaxis: Status: Acute Assessment and plan: high risk as h/o DVT, on high dose enoxaparin Subjective Subjective Patient reports: no new complaints, still having pain and tolerating a regular diet; denies diarrhea, nausea, vomiting, shortness of breath or fever Interval history since last seen: He continues to have foot pain. Bilateal but worse on right, 9/10. He is eating. Exam Narrative Exam Narrative: GEN: Alert and oriented, NAD, sitting up working on computer, eating. Cardiovascular-regular rate and rhythm no rubs or gallops quite distant Pulm-clear to auscultation bilaterally, normal effort Abdomen-protuberant with bowel sounds active Extremities-approximately 5 x 3 cm wound on plantar right foot close to his fifth toe. 2+ narcisa edema to feet, warm. Skin: in addition to foot, large area of red/irritated skin of folds of perineium, with fissures thar are ulcerated, healed ischial wounds Objective Last Vital Signs Temp 35.8 C L 08/10/24 08:20 Pulse 80 08/10/24 08:20 Resp 16 08/10/24 08:20 BP 143/81 H 08/10/24 08:20 Pulse Ox 97 08/10/24 08:30 Laboratory Results - last 24 hr 08/09/24 08/10/24 08/10/24 21:55 02:55 07:17 WBC 10.69 7.46 RBC 4.20 L 4.14 L Hgb 10.4 L 10.2 L Hct 34.0 L 33.7 L MCV 81 81 MCH 24.8 L 24.6 L MCHC 30.6 L 30.3 L RDW 16.1 H 16.4 H Plt Count 238 224 MPV 11.3 H 10.8 Immature Gran % 0.3 Neutrophils % 73.0 Lymphocytes % 17.9 Monocytes % 5.5 Eosinophils % 2.8 Basophils % 0.5 Nucleated RBC % 0.0 Absolute Neutrophils 7.81 H Absolute Lymphocytes 1.91 Absolute Monocytes 0.59 Absolute Eosinophils 0.30 Absolute Basophils 0.05 ESR 51 H PT 12.2 H INR 1.2 H VBG Lactate 1.0 Sodium 137 138 Potassium 3.7 3.9 Chloride 100 101 Carbon Dioxide 34.0 H 33.3 H Anion Gap 3.0 3.7 BUN 13 15 Creatinine 0.8 0.5 L Est GFR (CKD-EPI 2020) 117.63 135.56 Glucose 96 113 H Calcium 8.7 8.5 Total Bilirubin 0.4 0.4 AST 15 13 L ALT 22 20 Alkaline Phosphatase 55 53 C-Reactive Protein 7.43 H Total Protein 8.6 H 8.3 H Albumin 2.8 L 2.7 L Procalcitonin < 0.10 MRSA (TEM-PCR) Positive A Time Spent with Patient Time Spent with Patient: 35-49 minutes Time was spent: preparing to see the patient(eg.review tests), obtaining and/or reviewing separately otained hiistory, ordering medications,tests, procedures, referring, communicating with other health critical care transport nurse, indepentently interpreting results, counseling the patient and care coordination
[2024-08-10] MEDS: Ondansetron O.D.T. 4 MG TABEF PO ×2 (13:29→20:55)
[2024-08-10] MEDS: Sertraline 25 MG TAB PO (13:29)
--- NOTE | 2024-08-10 13:52 | PHA.REVIEW2 ---
Pharmacy Admission Review Admission Clinical Review Admission Pharmacy Review: DVT prophylaxis (Acute) Pressure sore on buttocks (Acute) Open wound of right foot (Acute) Chronic back pain (Acute) Neurogenic bladder (Acute) Chronic complete spastic paraplegia (Acute) Morbid obesity (Acute) erythromycin base Allergy (Intermediate, Verified 04/14/24 09:38) Hives Resuscitation Status Full Code Height 6 ft 2 in Weight 154.481 kg Pharmacy Admission Review Renal Dosing Renal Dosing: BUN 15 mg/dL (7-18) 08/10/24 07:17 Creatinine 0.5 mg/dL (0.70-1.30) L 08/10/24 07:17 Medications needing adjustments: Reviewed (CrCl 320.99 mL/min) List of meds needing interventions: Current medications are okay Anticoagulation Anticoagulation: Hgb 10.2 g/dL (13.5-17.5) L 08/10/24 07:17 Hct 33.7 % (40.0-50.0) L 08/10/24 07:17 Plt Count 224 10^3/uL (130-400) 08/10/24 07:17 INR 1.2 (0.9-1.1) H 08/09/24 21:55 Creatinine 0.5 mg/dL (0.70-1.30) L 08/10/24 07:17 DVT Prophylaxis: Intervened (changed from daily to BID due to BMI > 40) Medications: Enoxaparin (40mg BID) Opiate Usage Evaluate Pain Scale/Pains Meds: Reviewed (hydromorphone 2mg IVP q3h PRN - 11mg / 24hrs) Scheduled Bowel Reg ordered if on Opiates?: No (PRN docusate/Miralax) Relevant Labs Relevant Labs: ESR 51 mm/hr (0-15) H 08/09/24 21:55 Sodium 138 mmol/L (136-145) 08/10/24 07:17 Potassium 3.9 mmol/L (3.5-5.1) 08/10/24 07:17 Chloride 101 mmol/L (98-107) 08/10/24 07:17 C-Reactive Protein 7.43 mg/dL (<or=0.5) H 08/09/24 21:55 Electrolytes, C-Reactive P, ESR: Reviewed Cardiac Review Cardiac Review: Blood Pressure 143/81 0820 Blood Pressure 118/80 0356 BP, HR, EF%: Reviewed (HR WNL) QTc Review QTc: Reviewed (No EKG on file) IV to PO Switch IV Medications: Reviewed (cefepime, hydromorphone and vancomycin) Home Meds Home Med List reviewed: Reviewed Current Meds Current Medication Order Review: Intervened Comments: Discontinued duplicate APAP order Changed IV ED access order No orders had been put in for continued ABX, reached out to provider who then ordered it. Pharmacy Antibiotic Review Relevant Labs: Relevant Labs 08/09/24 21:55 C-Reactive Protein 7.43 H Procalcitonin < 0.10 WBC 7.46 10^3/uL (4.4-10.8) 08/10/24 07:17 Procalcitonin < 0.10 ng/mL 08/09/24 21:55 Temperature 35.8 C Temperature 36.6 C Pharmacy Antibiotic Activity: C/S review and Reviewed, no change Comments: Patient is on cefepime and vancomycin, day 1, for cellulitis (foot ulcer). Patient was given 1000mg of vancomycin last night in ED, gave another 2000mg this AM and then ordered level. Will adjust dose as needed based on level. May need to get a few levels given patients weight, last time patient got vancomycin he was on 2000mg q8h. Blood and wound cultures are pending.
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
[2024-08-10 18:03] LABS: Vancomycin, Random 11.9 ug/mL
--- NOTE | 2024-08-10 18:08 | PDOC.CMIN ---
Date of service: 08/10/24 Time of Service: 14:45 Care Management Initial Assmt Initial Assessment Reason for Hospitalization: right foot wound Functional Status/Living Situation Patient Presentation: Thony presented to the ER late last night with c/o an ulcer on his foot that is painful and has had a foul smell. He was seen at [facility] 2 days prior and they recommended hospitalization, but Thony did not have children's tutor nursery arranged. Thony was admitted with cellulitis, r/o osteomyelitis. Thony is wheel chair bound due to an accident 16years ago. He is raising his 2 sons, 16y, and 13y. Thony has [facility], his CM is Brendan Monk. He has caregivers daily and housekeeping help. Thony is currently on medicaid probation for his RCT rides, due to cancelling and not showing for many appointments. has also been refusing to see him due to his behavior, and Thony has been trying to care for his scrotal and sacral wounds on his own. CM has reached out to [facility] to see if they would be willing to take him back on service. [facility] requested a PT and an OT eval. They will discuss his case with leadership. Thony was sleepy, but arousable when CM met with him today. He asked for help with HH. He said that he has changed his behavior and would really like them to assist him again. Town of Residence: [place] Resides with: Child (2 sons as above) Significant Other/Family: Local (Mom, Mona and grandmom, Krystle) Caregiver/Guardian: [facility] client. Brendan Monk is CM at [facility]. Has caregivers from [facility] daily Employment Status: Disabled Instrumental Activities of Daily Living (ADLs): Requires support (Thony does the cooking for himself and his children. Has help for housekeeping) Physical Functioning/Mobility Assistive Device: wheel chair bound- paraplegic Advance Directives Advance Directives: Do you have an Advance Directive: N 04/24/24, 13:17 AD On File at [facility]: N 04/24/24, 13:17 Date Asked 08/09/24 08/09/24, 20:46 AD Date Reviewed COLST On File at [facility] No 04/24/24, 13:17 COLST Date Scanned Code Status Resuscitation Status Full Code Insurance Coverage/Financial Issues Insurance: [place] medicaid [facility] Care Team Visit Care Team Role Provider Type Pierce Watters MD [facility] STAFF PHYSICIAN Clarissa Hunt, BOXING AND PRESSING SUPERVISOR Primary Care Provider NURSE PRACTITIONER Gloria Lopes Other Providers CORSAGE MAKER Mary Simms, JACQUELIN Other Providers [facility] STAFF PHYSICIAN Fatemeh Jett Other Providers CORSAGE MAKER Deanna Kim Other Providers CORSAGE MAKER Claudio Limon CRNA Other Providers [facility] NURSE APPLICATION SYSTEMS ADMINISTRATOR Erick Escalante, JACQUELIN Other [facility]iders [facility] Ange Sawyer RN Other Providers CORSAGE MAKER Becca Fajardo Other Providers CORSAGE MAKER Susana Herman MD Emergency Provider [facility] STAFF PHYSICIAN Mati Fajardo MD Admit Provider [facility] STAFF PHYSICIAN Attending Provider Discharge Potential Discharge Needs: Consult (OT), PT Evaluation, PCP F/U Appt and Other (wound care, podiatry) Anticipated Barriers to Discharge: None Identified Patient/Family Education Needs: Review discharge instructions, discuss Ask Me Three Transportation: EMS (EMS ) Plan: Anticipate that Thony will be discharged home once medically stable. It is unclear if he will have HH services at this time, but they will be recommended. Thony will f/u with his PCP and the wound care clinic at [facility] and continue per his plan of care. He will need to transport via EMS, as his wheelchair is not with him. CM will continue to follow. Social Determinants of Health Screening Will the Patient Participate in the Screening?: Declined to provide PFSH All Active Problems (Updated 08/10/24 @ 15:53 by Mary Simms DPM) Ulcer of right foot with necrosis of bone (Acute) DVT prophylaxis (Acute) Pressure sore on buttocks (Acute) Open wound of right foot (Acute) Hospital discharge follow-up (Acute) Chronic urinary tract infection (Acute) Back pain (Acute) Decubitus ulcer (Acute) Scrotal ulcer (Acute) Urinary tract infection (Acute) Sepsis (Acute) Chronic indwelling Arguello catheter (Acute) Left knee pain (Acute) Onychomycosis (Acute) Right knee pain (Acute) Elevated hemoglobin A1c (Acute) Preventative health care (Acute) Hypogonadism in male (Acute) Neurogenic bowel (Acute) GERD (gastroesophageal reflux disease) (Chronic) Chronic leg pain (Acute) Chronic back pain (Acute) Neurogenic bladder (Acute) Wheelchair bound (Acute) Chronic complete spastic paraplegia (Acute) PTSD (post-traumatic stress disorder) (Acute) Depression (Chronic) Anxiety (Chronic) Morbid obesity (Acute) Medical History UTI (urinary tract infection) Osteomyelitis Foot ulcer Tibia/fibula fracture Isiah placement Acetabulum fracture Open fracture of forearm H/O methicillin resistant Staphylococcus aureus Peripheral edema Right hip pain H/O deep venous thrombosis Snoring Daytime somnolence Chronic pain Social History Smoking/Tobacco Use Status: Never Smoking risk assessment performed?: Yes Alcohol Intake: current Alcohol Intake frequency: holidays/special occasions only Drug use: Occasionally Substance use type: marijuana Details: Has tried marijuana in the past, makes nerve pain worse, denies others. Adopted: No Caregiver/Support person: No Foster care: No Household members: children Housing: house Number of Children: 2 number of grandchildren: 0 Education Level: high school Do you need help understanding health information?: Never current occupation: disabled Pets and animals: Yes (2) Pets and animals: cat(s) and dog(s) Sexually active: No Do you think of yourself as: straight/heterosexual Current gender identity: male What is your relationship status?: How often do you talk on the phone with friends or family?: three or more times per week How often do you get together with friends or relatives?: three or more times per week How often do you attend jainism or anabaptism services?: decline to answer Do you belong to any clubs or organized social groups?: no Panel score (0-1 are the most socially isolated patients): 1 What type of physical activity do you participate in: none Joslyn/Scientologist: None Seatbelt use: always Helmet use: No Drive intox or ride w/intox petroleum transport driver: No Do you feel safe at home: Yes Do you feel safe in your relationship?: Yes
[2024-08-10] MEDS: Mylanta Suspension 30 ML CUP PO (18:43)
[2024-08-11] MEDS: CEFEPIME 2 GM in Normal Saline 100 ML IVPB ×3 (01:25→17:25)
[2024-08-11] MEDS: HYDROmorphone 2 MG/ML SYR IVP ×6 (01:26→22:37)
[2024-08-11] MEDS: Mylanta Suspension 30 ML CUP PO (01:51)
[2024-08-11] MEDS: VANCOMYCIN/WATER (PEG) 2 GM/400 ML BAG IVPB (04:44)
[2024-08-11] MEDS: Acetaminophen 500 MG TAB 1000 MG PO ×4 (06:26→22:37)
[2024-08-11] MEDS: Ondansetron O.D.T. 4 MG TABEF PO ×2 (06:44→14:33)
[2024-08-11 07:42] LABS: Vancomycin, Random 40.3 ug/mL
[2024-08-11] MEDS: Sertraline 25 MG TAB PO (08:31)
[2024-08-11] MEDS: Ibuprofen 600 MG TAB PO ×4 (08:31→21:07)
[2024-08-11] MEDS: Normal Saline Flush 10 ML SYR IVP ×2 (08:32→21:07)
[2024-08-11] MEDS: Enoxaparin 40 MG/0.4 ML SYR SC ×2 (08:32→21:08)
[2024-08-11 08:33] VITALS: BP 108/74; PULSE 57; RESP 16; TEMP 35.7; O2SAT 100
--- NOTE | 2024-08-11 10:11 | CMPROGNOTE_ITS ---
Date of service: 08/11/24 Time of Service: 10:11 Care Management Progress Note Progress Note Text Progress Note Text: Thony is scheduled to have surgery on Wednesday with Dr. Simms, podiatry. She is planning OR wound debridement with bone biopsy of the right fifth metatarsal and possible resection of the necrotic bone. X-rays did show osteomyelitis. Thony was sitting up in bed when CM met with him today. Thony relayed some emotions regarding his children, and how he feels he has let them down due to his disabiity. CM reminded Thony that they probably actually really look up to him. He has raised them, pretty much on his own, for 16years, from a wheel chair! [facility] opinion is that he has done an amazing job, I'm sure his kids are proud. This seemed to really allow Thony to open up, and he was soft spoken and let out a lot of emotion. Thony stated that he has recently found the Lord, and this has helped him tremendously. 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 He is doing really well in his classes, and he has hope for his future. He feels that his classes have taught him a lot about himself. He is now much less quick to react, takes the time to think, and things seem to be working out a lot better in his personal interactions. Thony is really hopeful that will take him back on as a client. He asked CM to advocate for him. CM did let know about our conversation and the change that was seen in his behavior from his last admission. Thony also stated that he has a vehicle with portable hand controls, but they are not very safe, and he can not fit his wheelchair in the vehicle. He is looking for some financial help to get permanent hand controls, and a rack for his chair. CM will refer to [employer], with Thony's permission, to see if they are aware of any funding that might be able to help him make these life-changing changed to his vehicle. Thony also requested the weatherization technician to visit on Wednesday. CM coordinated with the weatherization technician who will visit Thony on Wednesday. Discharge Potential Discharge Needs: PT Evaluation (OT also, as requested by [facility]), PCP F/U Appt and Other (podiatry f/u) Anticipated Barriers to Discharge: None Identified Patient/Family Education Needs: Review discharge instructions, discuss Ask Me Three Transportation: EMS Plan: Anticipate that Thony will be discharged home once medically stable. It is unclear if he will have HH services at this time, but they will be recommended for wound care. Thony will f/u with his PCP, podiatry, and the wound care clinic at [facility] [place] and continue per his plan of care. He will need to transport via EMS, as his wheelchair is not with him. CM will continue to follow. Social Determinants of Health Screening Will the Patient Participate in the Screening?: Declined to provide
--- NOTE | 2024-08-11 11:04 | W.PM.PROGNOT ---
Date of Service Date of service: 08/11/24 Time of Service: 11:04 Assessment and Plan Assessment and plan (1) Osteomyelitis of right foot: Status: Acute Assessment and plan: -as seen on xray -MRI results pending -has been on vanc and cefepime since admission, will continue -Podiatry will take to OR Wednesday, 08/14 (2) Anxiety: Status: Chronic Assessment and plan: -Chronic anxiety/depression/PTSD. -Resume sertraline, which PCP Rx'd earlier this year (came off for linazolid, didn't get up to full dose) (3) Pressure sore on buttocks: Status: Acute Assessment and plan: -perineal/base of scrotum -This is being managed by wound clinic at . -Notes on paper chart now, Continue wound care. (4) Neurogenic bladder: Status: Acute Assessment and plan: -noted, pt has seen Dr Ramos in the past. -Arguello changed. (5) Chronic complete spastic paraplegia: Status: Acute Assessment and plan: -noted (6) Morbid obesity: Status: Acute Assessment and plan: -consider nutrition consult, GLP-1 as outpatient as h/o pre-DM (7) DVT prophylaxis: Status: Acute Assessment and plan: -high risk as h/o DVT, on high dose enoxaparin Subjective Subjective Interval history since last seen: Patient states that he is doing well and understands he is to remain hospitalized until his surgical intervention on Wednesday morning. Otherwise he has no other complaints concerns at this time. Exam Narrative Exam Narrative: Fatigued but otherwise well-appearing gentleman laying in bed in no acute distress, ANO x 4, heart regular rhythm, lungs good auscultation bilaterally, abdomen obese, soft, nontender, nondistended, bilateral lower extremities in Unna boots and wounds were not visualized, please see podiatry notes for further details Objective Last Vital Signs Temp 96.3 F L 08/11/24 08:33 Pulse 57 L 08/11/24 08:33 Resp 16 08/11/24 08:33 BP 108/74 08/11/24 08:33 Pulse Ox 100 08/11/24 08:33 Laboratory Results - last 24 hr 08/10/24 08/11/24 17:15 07:06 Random Vancomycin 11.9 40.3 Time Spent with Patient Time Spent with Patient: >50 minutes Time was spent: preparing to see the patient(eg.review tests), obtaining and/or reviewing separately otained hiistory, ordering medications,tests, procedures, referring, communicating with other health reservoir caretaker, indepentently interpreting results, counseling the patient and care coordination
--- NOTE | 2024-08-11 12:14 | NUR.NOTE ---
Nursing Note: Pt was yelling LOUDLY at his son through cell phone. Advised that pt refrain from yelling with the headache he has been c/o, should keep sound down to a minimum. He already has curtains drawn and no lights on
[2024-08-11 12:27] LABS: Vancomycin, Trough 17.9 ug/mL (10.0-20.0)
[2024-08-11] MEDS: VANCOMYCIN/WATER (PEG) 1.75 GM/350 ML BAG IVPB ×2 (12:50→21:56)
--- NOTE | 2024-08-11 17:40 | CHAPLAIN ---
I visited with Thony this afternoon and he asked if I would return on Wednesday and I will. I offered a prayer with Thony. He is scheduled for surgery on Wednesday for debridment of his foot and to see if the bone is infected. Thony shared some of his concerns with Eveline, his Actuarial Director, and they had a positive conversation.
[2024-08-11 19:27] VITALS: BP 144/93; PULSE 61; RESP 20; TEMP 36.1; O2SAT 94
[2024-08-12] MEDS: CEFEPIME 2 GM in Normal Saline 100 ML IVPB ×3 (02:18→18:13)
[2024-08-12] MEDS: HYDROmorphone 2 MG/ML SYR IVP ×6 (02:19→22:39)
[2024-08-12] MEDS: Acetaminophen 500 MG TAB 1000 MG PO ×3 (06:01→18:12)
[2024-08-12] MEDS: VANCOMYCIN/WATER (PEG) 1.75 GM/350 ML BAG IVPB ×3 (06:02→22:38)
[2024-08-12 07:49] VITALS: BP 126/81; PULSE 65; RESP 17; TEMP 36; O2SAT 97
[2024-08-12] MEDS: Normal Saline Flush 10 ML SYR IVP ×4 (08:49→22:38)
[2024-08-12] MEDS: Ibuprofen 600 MG TAB PO ×4 (08:49→19:10)
[2024-08-12] MEDS: Enoxaparin 40 MG/0.4 ML SYR SC ×2 (08:49→19:11)
[2024-08-12] MEDS: Sertraline 25 MG TAB PO (08:50)
[2024-08-12] MEDS: Ondansetron O.D.T. 4 MG TABEF PO ×2 (09:59→20:26)
[2024-08-12 10:18] LABS: Estimated GFR 145.01 (mL/min/1.73m2)
[2024-08-12 10:48] LABS: Vancomycin, Random 21.3 ug/mL
--- NOTE | 2024-08-12 12:59 | PGE_ITS ---
Date of Service Date of service: 08/12/24 Time of Service: 12:59 Assessment and Plan Assessment and plan (1) Osteomyelitis of right foot: Status: Acute Assessment and plan: -as seen on xray -MRI results pending -has been on vanc and cefepime since admission, will continue -Podiatry will take to OR Wednesday, 08/14 (2) Anxiety: Status: Chronic Assessment and plan: -Chronic anxiety/depression/PTSD. -Resume sertraline, which PCP Rx'd earlier this year (came off for linazolid, didn't get up to full dose) (3) Pressure sore on buttocks: Status: Acute Assessment and plan: -perineal/base of scrotum -This is being managed by wound clinic at . -Notes on paper chart now, Continue wound care. (4) Neurogenic bladder: Status: Acute Assessment and plan: -noted, pt has seen Dr Ramos in the past. -Arguello changed. (5) Chronic complete spastic paraplegia: Status: Acute Assessment and plan: -noted (6) Morbid obesity: Status: Acute Assessment and plan: -consider nutrition consult, GLP-1 as outpatient as h/o pre-DM (7) DVT prophylaxis: Status: Acute Assessment and plan: -high risk as h/o DVT, on high dose enoxaparin Subjective Subjective Interval history since last seen: Patient somewhat somnolent but he states he has no complaints or concerns at this time. Exam Narrative Exam Narrative: Fatigued but otherwise well-appearing gentleman laying in bed in no acute distress, ANO x 4, heart regular rhythm, lungs good auscultation bilaterally, abdomen obese, soft, nontender, nondistended, bilateral lower extremities in Unna boots and wounds were not visualized, please see podiatry notes for further details Objective Last Vital Signs Temp 96.8 F L 08/12/24 07:49 Pulse 65 08/12/24 07:49 Resp 17 08/12/24 07:49 BP 126/81 08/12/24 07:49 Pulse Ox 97 08/12/24 07:49 Laboratory Results - last 24 hr 08/12/24 10:00 Creatinine 0.4 L Est GFR (CKD-EPI 2020) 145.01 Random Vancomycin 21.3 Time Spent with Patient Time Spent with Patient: >50 minutes Time was spent: preparing to see the patient(eg.review tests), obtaining and/or reviewing separately otained hiistory, ordering medications,tests, procedures, referring, communicating with other health plant care worker, indepentently interpreting results, counseling the patient and care coordination
[2024-08-12 18:40] VITALS: BP 146/95; PULSE 73; RESP 17; TEMP 35.8; O2SAT 100
[2024-08-13] MEDS: Acetaminophen 500 MG TAB 1000 MG PO ×4 (00:49→22:59)
[2024-08-13 01:12] VITALS: BP 146/95; PULSE 73; RESP 17; TEMP 35.8; O2SAT 100
[2024-08-13] MEDS: Normal Saline Flush 10 ML SYR IVP ×5 (01:56→20:32)
[2024-08-13] MEDS: CEFEPIME 2 GM in Normal Saline 100 ML IVPB ×3 (01:57→17:31)
[2024-08-13] MEDS: HYDROmorphone 2 MG/ML SYR IVP ×7 (01:57→23:35)
[2024-08-13 02:08] VITALS: BP 126/73; PULSE 71; RESP 20; TEMP 35.2; O2SAT 91
[2024-08-13] MEDS: VANCOMYCIN/WATER (PEG) 1.75 GM/350 ML BAG IVPB ×3 (05:32→22:59)
[2024-08-13 08:26] VITALS: BP 127/97; PULSE 66; RESP 18; TEMP 36.4; O2SAT 100
[2024-08-13] MEDS: Enoxaparin 40 MG/0.4 ML SYR SC ×2 (08:57→20:31)
[2024-08-13] MEDS: Sertraline 25 MG TAB PO (08:58)
[2024-08-13] MEDS: Ibuprofen 600 MG TAB PO ×4 (08:58→20:31)
--- NOTE | 2024-08-13 12:24 | W.PM.PROGNOT ---
Date of Service Date of service: 08/13/24 Time of Service: 12:24 Assessment and Plan Assessment and plan (1) Osteomyelitis of right foot: Status: Acute Assessment and plan: -as seen on xray -MRI results pending -has been on vanc and cefepime since admission, will continue -Podiatry will take to OR Wednesday, 08/14 and will be n.p.o. at midnight (2) Anxiety: Status: Chronic Assessment and plan: -Chronic anxiety/depression/PTSD. -Resume sertraline, which PCP Rx'd earlier this year (came off for linazolid, didn't get up to full dose) (3) Pressure sore on buttocks: Status: Acute Assessment and plan: -perineal/base of scrotum -This is being managed by wound clinic at . -Notes on paper chart now, Continue wound care. (4) Neurogenic bladder: Status: Acute Assessment and plan: -noted, pt has seen Dr Ramos in the past. -Arguello changed. (5) Chronic complete spastic paraplegia: Status: Acute Assessment and plan: -noted (6) Morbid obesity: Status: Acute Assessment and plan: -consider nutrition consult, GLP-1 as outpatient as h/o pre-DM (7) DVT prophylaxis: Status: Acute Assessment and plan: -high risk as h/o DVT, on high dose enoxaparin Subjective Subjective Interval history since last seen: Patient states that he is doing well today and understands he will have surgery tomorrow morning with podiatry. Otherwise he has no other complaints concerns at this time. Exam Narrative Exam Narrative: Fatigued but otherwise well-appearing gentleman laying in bed in no acute distress, ANO x 4, heart regular rhythm, lungs good auscultation bilaterally, abdomen obese, soft, nontender, nondistended, bilateral lower extremities in Unna boots and wounds were not visualized, please see podiatry notes for further details Objective Last Vital Signs Temp 97.5 F L 08/13/24 08:26 Pulse 66 08/13/24 08:26 Resp 18 08/13/24 08:26 BP 127/97 H 08/13/24 08:26 Pulse Ox 100 08/13/24 08:26 Time Spent with Patient Time Spent with Patient: >50 minutes Time was spent: preparing to see the patient(eg.review tests), obtaining and/or reviewing separately otained hiistory, ordering medications,tests, procedures, referring, communicating with other health care team coordinator scheduler, indepentently interpreting results, counseling the patient and care coordination
[2024-08-13 20:36] VITALS: BP 141/83; PULSE 67; RESP 18; TEMP 36.4; O2SAT 96
[2024-08-14] VITALS (23 sets, daily range): BP systolic 96–150; BP diastolic 41–90; PULSE 46–74; RESP 13–24; TEMP 35.9–36.4; O2SAT 94–100; BMI 53.7
--- NOTE | 2024-08-14 | DI.RAD_ITS ---
Exam(s) XR TIB/FIB RT EXAM: XR TIB/FIB RT CLINICAL HISTORY: eval tibia for potential BKA. TECHNIQUE: 2D digital imaging was performed. Two views. COMPARISON: CR,XR XR FOOT RT COMPLETE from 08/09/2024 FINDINGS: BONES: Intramedullary isiah is noted in the tibia. Old proximal fibular and distal tibial fractures. No acute fracture is present. No bony destructive lesion is seen. There degenerative changes of the knee and ankle. SOFT TISSUE: Edema IMPRESSION: Old fractures. Isiah in the tibia. No bony erosions. DATA REPOSITORY: RADIATION DOSE DELIVERED:
[2024-08-14] MEDS: HYDROmorphone 2 MG/ML SYR IVP ×5 (02:53→19:42)
[2024-08-14] MEDS: CEFEPIME 2 GM in Normal Saline 100 ML IVPB ×2 (02:53→10:35)
[2024-08-14] MEDS: Loperamide 2 MG CAP 4 MG PO (02:53)
[2024-08-14] MEDS: Acetaminophen 500 MG TAB 1000 MG PO ×4 (05:59→23:02)
[2024-08-14 06:20] LABS: HCT 34.0 % (40.0-50.0); HGB 10.0 g/dL (13.5-17.5); MCH 24.6 pg (27.0-33.0); MCHC 29.4 % (32.0-36.0); MCV 84 fL (80-95); MPV 10.8 fL (8.0-11.0); Platelet Count 221 10^3/uL (130-400); RBC 4.07 10^6/uL (4.36-5.78); RDW 15.9 % (11.8-14.1); RDW-SD 48.1 fL; WBC 7.19 10^3/uL (4.4-10.8)
[2024-08-14 06:34] LABS: Anion Gap 3.4 mmol/L (3-11); BUN 15 mg/dL (7-18); CO2 33.6 mmol/L (21.0-32.0); Calcium 8.6 mg/dL (8.5-10.1); Chloride 102 mmol/L (98-107); Estimated GFR 145.01 (mL/min/1.73m2); Glucose 89 mg/dL (74-106); Potassium 4.4 mmol/L (3.5-5.1); Sodium 139 mmol/L (136-145)
[2024-08-14 06:57] LABS: Vancomycin, Trough 16.1 ug/mL (10.0-20.0)
--- NOTE | 2024-08-14 07:21 | ANES.PREOP_ITS ---
General Info Date of Service Date Performed: 08/14/24 Height: 6 ft 2 in Weight: 190 kg Body Mass Index (BMI): 53.7 Surgical Procedure: Operation Date: 08/14/24 07:40 Proposed Procedure Side Surgeon p I&D, Bone Debridement Right Mary iSmms DPM Meds Allergies and Home Medications Allergies Allergy/AdvReac Type Severity Reaction Status Date / Time erythromycin base Allergy Intermediate Hives Verified 04/14/24 09:38 Home Medication ?Medication ?Instructions ?Recorded acetaminophen 500 mg tablet 1,000 mg (2 x 500 mg) PO Q 6H #40 03/31/24 tabs ibuprofen 600 mg tablet 600 mg PO QID #20 tabs 03/31 Current Visit Medications: Current Medications Generic Name Dose Route Start Last Admin Trade Name Freq PRN Reason Stop Dose Admin Acetaminophen 1,000 mg 08/10/24 06:00 08/14/24 05:59 Acetaminophen 500 Mg Tab PO 1,000 mg Q6H HOWARD Administration Al Hydrox/Mg Hydrox/Simethicone 30 ml 08/09/24 23:13 08/11/24 01:51 Mylanta Suspension 30 Ml Cup PO 30 ml Q2H PRN PRN Administration Docusate Sodium 100 mg 08/09/24 23:13 Docusate Sodium 100 Mg Cap PO TID PRN PRN Enoxaparin Sodium 40 mg 08/10/24 20:00 08/13/24 20:31 Enoxaparin 40 Mg/0.4 Ml Syr SC 40 mg BID HOWARD Administration Hydromorphone HCl 2 mg 08/09/24 23:12 08/14/24 05:59 Hydromorphone 2 Mg/Ml Syr IVP 2 mg Q3H PRN PRN Administration Cefepime HCl 2 gm/ Sodium 100 mls @ 200 mls/hr 08/10/24 10:00 08/14/24 03:44 Chloride IVPB Infused Q8H HOWARD Infusion Vancomycin/PEG/NADA/Lysine/Water 1.75 gm in 350 mls @ 175 mls/hr 08/11/24 14:00 08/14/24 06:16 Vancocin Injection IVPB Infused Q8H HOWARD Infusion IV Miscellaneous Supplies 1 each 08/10/24 09:45 Iv Access IV DIRECTED HOWARD Ibuprofen 600 mg 08/10/24 08:30 08/13/24 20:31 Ibuprofen 600 Mg Tab PO 600 mg QID HOWARD Administration Magnesium Hydroxide 30 ml 08/09/24 23:13 Milk Of Magnesia 30 Ml Cup PO DAILY PRN PRN Ondansetron HCl 4 mg 08/10/24 12:57 08/12/24 20:26 Ondansetron O.D.T. 4 Mg Tabef PO 4 mg Q8H PRN PRN Administration Polyethylene Glycol 17 gm 08/09/24 23:13 Polyethylene Glycol 3350 17 Gm Packet PO DAILY PRN PRN Constipation Sertraline HCl 25 mg 08/11/24 08:30 08/13/24 08:58 Sertraline 25 Mg Tab PO 25 mg DAILY HOWARD Administration Sodium Chloride 0 ml 08/09/24 21:01 08/13/24 14:23 Normal Saline Flush 10 Ml Syr IVP 30 ml PRN PRN Administration Sodium Chloride 0 ml 08/10/24 08:30 08/13/24 20:32 Normal Saline Flush 10 Ml Syr IVP 20 ml BID HOWARD Administration Sodium Chloride 0 ml 08/09/24 21:01 Normal Saline 10 Ml Vial IJ DIRECTED PRN PFSH Active Problems Active Problems: Problem Status Onset Code Osteomyelitis of right foot Acute M86.9 Ulcer of right foot with necrosis of bone Acute L97.514 DVT prophylaxis Acute Z29.9 Pressure sore on buttocks Acute L89.309 Open wound of right foot Acute S91.301A Hospital discharge follow-up Acute Z09 Chronic urinary tract infection Acute N39.0 Back pain Acute M54.9 Decubitus ulcer Acute L89.90 Scrotal ulcer Acute N50.89 Urinary tract infection Acute N39.0 Sepsis Acute A41.9 Chronic indwelling Arguello catheter Acute Z97.8 Left knee pain Acute M25.562 Onychomycosis Acute B35.1 Right knee pain Acute M25.561 Elevated hemoglobin A1c Acute R73.09 Preventative health care Acute Z00.00 Hypogonadism in male Acute E29.1 Neurogenic bowel Acute K59.2 GERD (gastroesophageal reflux disease) Chronic K21.9 Chronic leg pain Acute M79.606, G89.29 Chronic back pain Acute M54.9, G89.29 Neurogenic bladder Acute N31.9 Wheelchair bound Acute Z99.3 Chronic complete spastic paraplegia Acute G82.21 PTSD (post-traumatic stress disorder) Acute F43.10 Depression Chronic F32.9 Anxiety Chronic F41.9 Morbid obesity Acute E66.01 Medical History Medical History UTI (urinary tract infection) Osteomyelitis Foot ulcer Tibia/fibula fracture Isiah placement Acetabulum fracture Open fracture of forearm H/O methicillin resistant Staphylococcus aureus Peripheral edema Right hip pain H/O deep venous thrombosis Snoring Daytime somnolence Chronic pain Tobacco Smoking/Tobacco Use Status: Never Alcohol Alcohol Intake: current Alcohol intake frequency: holidays/special occasions only Substance Use Substance use: Occasionally Substance use type: marijuana Details: Has tried marijuana in the past, makes nerve pain worse, denies others. Vital Signs and Lab Results Vital Signs Most Recent Vital Signs in EMR: Most Recent Vital Signs Temp Pulse Resp BP Pulse Ox 36.0 C L 53 L 16 137/86 100 08/14/24 07:13 08/14/24 07:13 08/14/24 06:23 08/14/24 07:13 08/14/24 07:13 Lab Results 08/14/24 06:07 08/14/24 06:07 Complete Blood Count: 2 WBC, (4.4-10.8) 7.19 10^3/uL Today, 06:07 RBC, (4.36-5.78) 4.07 10^6/uL L Today, 06:07 Hgb, (13.5-17.5) 10.0 g/dL L Today, 06:07 Hct, (40.0-50.0) 34.0 % L Today, 06:07 Plt Count, (130-400) 221 10^3/uL Today, 06:07 VBG Lactate, (<or=2.0) 1.0 mmol/L 08/09/24, 21:55 Complete Metabolic Panel: 2 Sodium, (136-145) 139 mmol/L Today, 06:07 Potassium, (3.5-5.1) 4.4 mmol/L Today, 06:07 Chloride, (98-107) 102 mmol/L Today, 06:07 Carbon Dioxide, (21.0-32.0) 33.6 mmol/L H Today, 06:07 BUN, (7-18) 15 mg/dL Today, 06:07 Creatinine, (0.70-1.30) 0.4 mg/dL L Today, 06:07 Est GFR (CKD-EPI 2020), (mL/min/1.73m2) 145.01 Today, 06:07 Calcium, (8.5-10.1) 8.6 mg/dL Today, 06:07 Albumin, (3.4-5.0) 2.7 g/dL L 08/10/24, 07:17 Glucose, (74-106) 89 mg/dL Today, 06:07 C-Reactive Protein, (<or=0.5) 7.43 mg/dL H 08/09/24, 21:55 Liver Function Panel: 2 ALT, (16-63) 20 U/L 08/10/24, 07:17 AST, (15-37) 13 U/L L 08/10/24, 07:17 Coagulation Panel: 2 INR, (0.9-1.1) 1.2 H 08/09/24, 21:55 PT, (9.1-11.1) 12.2 sec H 08/09/24, 21:55 Anesthesia Assessment and Plan Anesthesia History Personal History: No History of Anesthesia Complications Family History: No Family History of Anesthesia Complications Exercise Tolerance Exercise Tolerance: Metabolic Equivalents<4 (paraplegic) Pertinent Negatives Pertinent Negatives: No Major Cardiovascular Symptoms or Complaints and No Major Pulmonary Symptoms or Complaints Cardiac & Pulmonary Exam Cardiac Exam: Normal S1/S2 Heart Sounds and Heart Murmur Present (history, none heard today) Pulmonary Exam: Clear Bilateral Breath Sounds and Wheezing Present (Slight exp wheeze anteriorly) Cardiac and Pulmonary Comment:: Home O2 2L at night Implantable Cardiac Device Does patient have a Pacemaker or an ICD?: No Airway Exam Known Difficult Airway: No Mallampati Class: 4 Mouth Opening: Normal (> 3cm) Thyromental Distance: Greater than 3 cm Neck Range of Motion: Limited ROM Neck Circumference: Thick Teeth Condition: Normal Dentition ASA Classification ASA Score: ASA 3 Emergency Case?: No NPO Status NPO Status: NPO Clears >2 hours, Solids >8 hours Anesthesia Plan Resuscitation Status: Full Code Anesthesia Technique: General Anesthesia Airway Planned: Natural Airway Monitors Used: Standard Monitors Preoperative Comments:: Patient very anxious re: anesthesia. Wants minimal sedation with airway maintained.
[2024-08-14] MEDS: Lactated Ringers 1,000 ML 30 ML IV (08:35)
--- NOTE | 2024-08-14 09:10 | CMPROGNOTE_ITS ---
Date of service: 08/14/24 Time of Service: 09:10 Care Management Progress Note Progress Note Text Progress Note Text: Thony went to the OR this morning for an excisional wound debridement, with bone biopsy, of the right foot. He will need an extended course of IV antibiotics, approximately 6 weeks. Thony would like to have home infusions for this. CM again reached out to and spoke on Thony's behalf. Thony should be getting a PICC line this afternoon. He stated that he would be more than willing to learn how to do the abx at home, he has done them before. Thony was not feeling great when CM met with him this morning after his surgery, so the conversation was short. He was adamant about wanting to get home, and did ask CM to advocate with home health. CM will be sending the initial info regarding the antibiotic to both [facility] and [facility] this afternoon. Discharge Potential Discharge Needs: PT Evaluation (PT and OT consults per HH request), PCP F/U Appt and Other (podiatry, wound care clinic) Anticipated Barriers to Discharge: None Identified Patient/Family Education Needs: Review discharge instructions, discuss Ask Me Three Transportation: EMS Plan: Anticipate that Thony will be discharged home once medically stable. It is unclear if he will have HH services at this time, but they will be recommended for wound care and IV antibiotics. Thony will f/u with his PCP, podiatry, and the wound care clinic at [facility] and continue per his plan of care. He will need to transport via EMS, as his wheelchair is not with him. CM will continue to follow. Social Determinants of Health Screening Will the Patient Participate in the Screening?: Declined to provide
--- NOTE | 2024-08-14 09:37 | ROE_ITS ---
Operative Note Operative Note PRE-OP DIAGNOSIS: osteomyelitis, right foot POST-OP DIAGNOSIS: same PROCEDURE: Excisional wound debridement, with bone biopsy, right foot SURGEON: Mary Simms ANESTHESIA TYPE: Local By Surgeon (20mL 1% Lidocaine plain pre op) Refer to Anesthesia Record ESTIMATED BLOOD LOSS: 2 PATHOLOGY: other (Bone biopsy fifth metatarsal head and cuboid with cultures) TOURNIQUET TIME: 23 COMPLICATIONS: None Patient was transported to: PACU Patient's condition: stable Implants: None Indications: This is a 34-year-old male patient with past medical history significant for paraplegia a longstanding wound to the right foot. He is not sure how long he has had the wound however states he has had the wound for a long time. He has been going to [facility] wound care [place] for the right foot wound. He was referred here as this hospital was closer to him then [facility]. We have limited notes available. He has been going to [facility] consistently. He has been having wound care done consistently. The patient is seen with a full- thickness, necrotic wound to the right foot. X-rays show osteomyelitis to the fifth metatarsal. I do suspect osteomyelitis to the cuboid as well. There is widening of the joint space here. There is malodor to the wound. I recommend OR excisional wound debridement and biopsy to help guide antibiotics. I discussed the very high risk for higher amputation with these nonhealing wounds. Patient initially not open to an amputation however later he seems to be considering an amputation. Consent form was signed, reviewed and in chart. No contraindications noted to procedure at this time. Findings: Bleeding wound bed noted. 1.0 x 1.0 cm of bone exposed at the fifth metatarsal- cuboid joint. Wound measurements predebridement are 3.0 x 2.5 x 1.0 cm. The base is 100% necrotic. Bone exposure noted, hyperkeratotic tissue noted KAREN ulcer. No erythema, no warmth, no crepitus no fluctuance no bogginess noted. There is malodor to the wound. Postdebridement wound measurements are 4.0 x 3.5 x 1.5 cm with 1 x 1 cm of bone exposed Procedure Description: Patient was identified in preop holding. Site was marked. Patient was then brought to the operating room and placed in supine position on the operating table with the anesthesia team. The right ankle tourniquet was applied. Local analgesia was obtained using using 20 of 1% lidocaine plain preoperatively. The right lower extremity was then scrubbed, prepped and draped in the usual aseptic manner. The right foot was then exsanguinated using Esmarch. The ankle tourniquet was inflated to 250 mmHg. A timeout was carried out. Next, using a sterile #15 blade all hyperkeratotic, necrotic tissue around the wound was excised using a sterile #15 blade and passed from the operative field. Next, using Versajet and excisional debridement was performed to the wound bed at #10 setting. All necrotic, nonviable tissue was excisionally debrided. Next, bone exposure was noted. Biopsy specimens were obtained x 4. To fifth metatarsal base and 2 from the cuboid. Cultures and biopsy specimens were sent. The site was then irrigated with copious amounts of dilute Betadine. Dressings were then applied with Surgicel, Betadine soaked 4 x 4, Kerlix and Coban for compression. Patient tolerated the procedure and anesthesia well with vital signs stable and vascular status intact to the right foot. There is heavy necrotic tissue. The wound is longstanding. Limb salvage is going to be difficult considering the location of the ulcer which is fifth metatarsal base which does compromise the insertion of the peroneals further leading to equino varus deformity. Patient is nonambulatory and he is bedbound the fastest recovery option would be a below the knee or [id number] amputation which will also help mitigate risk for further infection and sepsis. Although we can consider a lateral ray resection and a flap closure, this will most likely breakdown over time leading to another ulcer. Will await cultures to help further tailor antibiotics. I did discuss with Ortho with Dr. Hernandez who has agreed to see the patient to be able to discuss a below the knee amputation. Patient does have hardware in the tibia. Dressings to be kept clean dry and intact. Nursing may reinforce the dressings as needed. Date of Procedure: 08/14/24
[2024-08-14] MEDS: Cellulose,Oxidized 4X8 1 PACKET MC (09:40)
--- NOTE | 2024-08-14 10:02 | W.ANESPOSTOP ---
Postoperative Evaluation Date, Time and Location Date Performed: 08/14/24 Time Performed: 10:02 Patient Location: PACU Vital Signs Most Recent Imported Vital Signs: Most Recent Vital Signs Temp Pulse Resp BP Pulse Ox 36.2 C L 46 L 18 96/64 L 98 08/14/24 09:50 08/14/24 09:56 08/14/24 09:56 08/14/24 09:56 08/14/24 09:55 Pain Score Most Recent Pain Score: Most Recent Pain Score Pain Level [Right Foot] 8 08/13/24 13:15 Pain Level [Lower Back] 8 08/13/24 13:15 Pain Level 0 08/13/24 20:36 Assessment Mental Status: Awake (Alert & Oriented to Patient Baseline) Airway and Respiratory Function: Patent airway with normal (patient baseline) respiratory exam Cardiovascular Function: Hemodynamically Stable Hydration Status: Adequately Hydrated Nausea & Vomiting: No Nausea or Vomiting Pain: Pain is tolerable per patient Peripheral Nerve Block: Patient did not receive a nerve block
[2024-08-14] MEDS: Normal Saline Flush 10 ML SYR IVP ×5 (10:36→23:02)
[2024-08-14] MEDS: HYDROmorphone 2 MG/ML SYR 1 MG IVP (11:12)
[2024-08-14] MEDS: Ibuprofen 600 MG TAB PO ×3 (12:32→20:03)
--- NOTE | 2024-08-14 16:29 | PGE_ITS ---
Date of Service Date of service: 08/14/24 Time of Service: 16:29 Assessment and Plan Assessment and plan (1) Osteomyelitis of right foot: Status: Acute Assessment and plan: -as seen on xray -Patient now postop day 0 for excisional wound debridement and bone biopsy of the right foot - Discussed with podiatry, agrees with plan to have PICC line placed and based on culture results transition to daily IV daptomycin - However, podiatry states that given extent of wound, may be beneficial for patient to pursue potential BKA, orthopedic surgery will discuss possibility with patient though this is likely to occur as an outpatient - Had been on Vanco and cefepime, changed to daptomycin as noted above (2) Anxiety: Status: Chronic Assessment and plan: -Chronic anxiety/depression/PTSD. -Resume sertraline, which PCP Rx'd earlier this year (came off for linazolid, di dn't get up to full dose) (3) Pressure sore on buttocks: Status: Acute Assessment and plan: -perineal/base of scrotum -This is being managed by wound clinic at . -Notes on paper chart now, Continue wound care. (4) Neurogenic bladder: Status: Acute Assessment and plan: -noted, pt has seen Dr Ramos in the past. -Arguello changed. (5) Chronic complete spastic paraplegia: Status: Acute Assessment and plan: -noted (6) Morbid obesity: Status: Acute Assessment and plan: -consider nutrition consult, GLP-1 as outpatient as h/o pre-DM (7) DVT prophylaxis: Status: Acute Assessment and plan: -high risk as h/o DVT, on high dose enoxaparin Subjective Subjective Interval history since last seen: Patient seen postoperatively and he is complaining of foot pain. Otherwise he understands plan to have PICC line placed and setting up outpatient IV antibiotic therapy. Exam Narrative Exam Narrative: Fatigued but otherwise well-appearing gentleman laying in bed in no acute distress, ANO x 4, heart regular rhythm, lungs good auscultation bilaterally, abdomen obese, soft, nontender, nondistended, right foot wrapped in postoperative bandage without surrounding erythema or drainage Objective Last Vital Signs Temp 97.0 F L 08/14/24 13:26 Pulse 74 08/14/24 13:40 Resp 14 08/14/24 13:26 BP 135/75 08/14/24 13:26 Pulse Ox 96 08/14/24 13:40 Laboratory Results - last 24 hr 08/14/24 06:07 WBC 7.19 RBC 4.07 L Hgb 10.0 L Hct 34.0 L MCV 84 MCH 24.6 L MCHC 29.4 L RDW 15.9 H Plt Count 221 MPV 10.8 Sodium 139 Potassium 4.4 Chloride 102 Carbon Dioxide 33.6 H Anion Gap 3.4 BUN 15 Creatinine 0.4 L Est GFR (CKD-EPI 2020) 145.01 Glucose 89 Calcium 8.6 Vancomycin Trough 16.1 Time Spent with Patient Time Spent with Patient: >50 minutes Time was spent: preparing to see the patient(eg.review tests), obtaining and/or reviewing separately otained hiistory, ordering medications,tests, procedures, referring, communicating with other health director long term care, indepentently int erpreting results, counseling the patient and care coordination
--- NOTE | 2024-08-14 17:45 | DI.RAD_ITS ---
Exam(s) XR PORTABLE CHEST AP EXAM: XR PORTABLE CHEST AP CLINICAL HISTORY: line placement TECHNIQUE: 2D digital imaging was performed. COMPARISON: CR,XR XR PORTABLE CHEST AP from 02/08/[address] CHEST/ABD/PEL W from 03/28/2024 FINDINGS: PICC line has been inserted with the tip projecting in the superior vena cava. LUNGS: Clear pulmonary vascular prominence mildly increased interstitial markings could indicate mild CHF. No focal area consolidation is visible. No pleural abnormality seen. HEART: Normal size. AORTA: Normal diameter. BONES: Unremarkable spinal rods. Soft tissues: Unremarkable. IMPRESSION: Satisfactory placement of PICC line. Question mild CHF. The preliminary [facility] report was reviewed. DATA REPOSITORY: RADIATION DOSE DELIVERED:
--- NOTE | 2024-08-14 18:53 | DI.[facility]_ITS ---
PROCEDURE INFORMATION: Exam: XR Chest Exam date and time: 08/14/2024 6:16 PM Age: 34 years old Clinical indication: Device placement; Picc TECHNIQUE: Imaging protocol: Radiologic exam of the chest. Views: 1 view. COMPARISON: CT CHEST/ABD/PEL W 03/28/2024 11:39 PM FINDINGS: Tubes, catheters and devices: Left upper extremity PICC in place with the tip in the superior vena cava. Lungs: Moderate diffuse pulmonary vascular prominence appears increased from previous, suggesting pulmonary vascular congestion. Mild subsegmental atelectasis in the left mid to lower lung. No significant consolidation. Pleural spaces: Unremarkable. No pleural effusion. No pneumothorax. Heart/Mediastinum: Unremarkable. No cardiomegaly. Bones/joints: Orthopedic hardware noted in the lower thoracic spine. No acute osseous abnormality. IMPRESSION: Findings of pulmonary vascular congestion. Left upper extremity PICC appears to be in good position Dictated and Authenticated by: Kaushal Thomas MD. Orderin Tung Martinez MD
[2024-08-14] MEDS: Enoxaparin 40 MG/0.4 ML SYR SC (19:41)
[2024-08-15] MEDS: Normal Saline Flush 10 ML SYR IVP ×7 (01:19→20:56)
[2024-08-15] MEDS: HYDROmorphone 2 MG/ML SYR 1 MG IVP (01:19)
[2024-08-15] MEDS: Acetaminophen 500 MG TAB 1000 MG PO ×3 (05:03→17:59)
[2024-08-15] MEDS: HYDROmorphone 2 MG/ML SYR IVP ×7 (05:04→20:57)
[2024-08-15 05:29] VITALS: PULSE 64; RESP 18; O2SAT 91
[2024-08-15 07:30] VITALS: BP 130/86; PULSE 65; RESP 22; TEMP 37; O2SAT 96
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
[2024-08-15] MEDS: Ibuprofen 600 MG TAB PO ×4 (08:08→20:56)
[2024-08-15] MEDS: Sertraline 25 MG TAB PO (08:08)
[2024-08-15] MEDS: Enoxaparin 40 MG/0.4 ML SYR SC ×2 (08:08→20:56)
[2024-08-15] MEDS: Ondansetron O.D.T. 4 MG TABEF PO (08:19)
--- NOTE | 2024-08-15 10:40 | W.PM.PROGNOT ---
Date of Service Date of service: 08/15/24 Time of Service: 10:40 Assessment and Plan Assessment and plan (1) Osteomyelitis of right foot: Status: Acute Assessment and plan: -as seen on xray -Patient now postop day 0 for excisional wound debridement and bone biopsy of the right foot - Discussed with podiatry, agrees with plan to have PICC line placed and based on culture results transition to daily IV daptomycin - However, podiatry states that given extent of wound, may be beneficial for patient to pursue potential BKA, orthopedic surgery will discuss possibility with patient though this is likely to occur as an outpatient - Had been on Vanco and cefepime, changed to daptomycin as noted above -working on plan for outpatient abx and coordination with home health services (2) Anxiety: Status: Chronic Assessment and plan: -Chronic anxiety/depression/PTSD. -Resume sertraline, which PCP Rx'd earlier this year (came off for linazolid, didn't get up to full dose) (3) Pressure sore on buttocks: Status: Acute Assessment and plan: -perineal/base of scrotum -This is being managed by wound clinic at . -Notes on paper chart now, Continue wound care. (4) Neurogenic bladder: Status: Acute Assessment and plan: -noted, pt has seen Dr Ramos in the past. -Arguello changed. (5) Chronic complete spastic paraplegia: Status: Acute Assessment and plan: -noted (6) Morbid obesity: Status: Acute Assessment and plan: -consider nutrition consult, GLP-1 as outpatient as h/o pre-DM (7) DVT prophylaxis: Status: Acute Assessment and plan: -high risk as h/o DVT, on high dose enoxaparin Subjective Subjective Interval history since last seen: Patient states that he is doing well and understands we are working on setting up home antibiotic therapy. Exam Narrative Exam Narrative: Fatigued but otherwise well-appearing gentleman laying in bed in no acute distress, ANO x 4, heart regular rhythm, lungs good auscultation bilaterally, abdomen obese, soft, nontender, nondistended, right foot wrapped in postoperative bandage without surrounding erythema or drainage Objective Last Vital Signs Temp 98.6 F 08/15/24 07:30 Pulse 65 08/15/24 07:30 Resp 22 08/15/24 07:30 BP 130/86 08/15/24 07:30 Pulse Ox 96 08/15/24 07:30 Time Spent with Patient Time Spent with Patient: >50 minutes Time was spent: preparing to see the patient(eg.review tests), obtaining and/or reviewing separately otained hiistory, ordering medications,tests, procedures, referring, communicating with other health before and after school daycare worker, indepentently interpreting results, counseling the patient and care coordination
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
--- NOTE | 2024-08-15 13:58 | PGE_ITS ---
Date of Service Date of service: 08/15/24 Time of Service: 12:45 Assessment and Plan Assessment and plan (1) Open wound of right foot: Status: Acute (2) Ulcer of right foot with necrosis of bone: Status: Acute (3) Osteomyelitis: Assessment and plan: Patient Was seen and evaluated. He is status post OR excisional debridement with bone biopsy to the right foot. Date of surgery 08/14/2024. On exam today, the wound bed appears healthy however with some brown-black discoloration secondary to surgicell use. There is no malodor, no periwound erythema edema drainage crepitus or fluctuance. There is bone exposure noted. Dressings were changed today with Xeroform, 4 x 4, Kerlix and an Eamon wrap. Nursing to do dressing changes daily. He will benefit from a wound VAC this can be started at the wound care center. I recommend treatment at [facility] wound [facility] [place] since patient would like to attempt at limb send fluids. He states that the wound was healing and had eventually healed however, worsened and has not recently healed since he did not have dressing supplies. I discussed treatment going forward. He was advised that limb salvage will be a long and hard process. Was advised that if the wound heals a little bit. Very high risk for breakdown again due to the location of the wound. I discussed the benefits of BKA/AKA as a treatment option with a faster more reliable healing time as well as the ability to help avoid repeat OR procedures/anesthesia risks. Patient does understand and verbalized understanding of risks for delayed healing, nonhealing as well as risks associated with anesthesia. He is aware that he did have to be placed on a breathing tube following a surgery in the past.. He states that he has been considering a BKA, however does not feel ready. Since patient is currently not septic we will continue with local wound care. Will continue to await final cultures and pathology reports. Since there is bone exposure this is considered osteomyelitis and I recommend antibiotics for 6 weeks. Patient continue Prevalon boots. I recommend resuming care at [facility] wound care center. Patient to continue to follow-up in office with me until he has reestablished care with [facility]. Patient has severe anxiety and to panic attacks yesterday in the morning prior to surgery. I agree with Dr. Prohaska that he will benefit from a consultation with psychiatry. Wound care consult placed. I recommend wound VAC application starting tomorrow to the right lower extremity with Adaptic to the bone, GranuFoam at 120 mmHg to be changed every 3 days by the wound care team. Subjective Subjective Interval history since last seen: Patient seen bedside today resting comfortably. Reports pain to the right foot. States that he has been in multiple areas in his body. He says he would like to continue with conservative care at this point not interested in a below the knee amputation. Exam Extrem Other: Right lower extremity physical exam: Derm: Full-thickness ulceration with granular base the base is dark in coloration secondary to Surgicel use, palpable wound noted sub plantar lateral aspect of the right foot. Fifth metatarsal base is palpable. There is surrounding erythema, no crepitus no fluctuance no bogginess. No malodor Vascular: DP pulses palpable, PT nonpalpable secondary to edema. Edema noted to the right lower extremity. MSK: Muscle strength absent. Neuro: Light touch absent Objective Last Vital Signs Temp 98.6 F 08/15/24 07:30 Pulse 65 08/15/24 07:30 Resp 22 08/15/24 07:30 BP 130/86 08/15/24 07:30 Pulse Ox 96 08/15/24 07:30 Time Spent with Patient Time Spent with Patient: >50 minutes Time was spent: preparing to see the patient(eg.review tests), obtaining and/or reviewing separately otained hiistory, ordering medications,tests, procedures, referring, communicating with other health career professional, indepentently interpreting results, counseling the patient, care coordination and other
--- NOTE | 2024-08-15 14:42 | IN_ITS ---
PT Notes Visit Reasons: cellulitis Inpatient Physical Therapy Evaluation Date: 08/15/2024 Referring Doctor: Dr Ruby PT Orders: PT CONSULT: PT evaluation and treat Precautions: Contact precautions, Arguello Patient Profile/Admitting Diagnosis: Patient is a 34-year-old male presented to the ED for worsening wound right foot. Patient had been seen at [facility] 2 days prior to admission who recommended inpatient treatment at that time. Wound with foul odor. Patient treated with IV antibiotics and went to the OR with department secretary on 08/14/2024 for debridement and wound cultures. Patient is pending Ortho consult. Patient underwent midline placement on 08/14/2024 patient is now postop day [address] and receiving IV antibiotics and pain medication. PMHX: Open wound of right foot (Acute) Hospital discharge follow-up (Acute) Chronic urinary tract infection (Acute) Back pain (Acute) Decubitus ulcer (Acute) Scrotal ulcer (Acute) Urinary tract infection (Acute) Sepsis (Acute) Chronic indwelling Arguello catheter (Acute) Left knee pain (Acute) Onychomycosis (Acute) Right knee pain (Acute) Elevated hemoglobin A1c (Acute) Preventative health care (Acute) Hypogonadism in male (Acute) Neurogenic bowel (Acute) GERD (gastroesophageal reflux disease) (Chronic) Chronic leg pain (Acute) Chronic back pain (Acute) Neurogenic bladder (Acute) Wheelchair bound (Acute) Chronic complete spastic paraplegia (Acute) PTSD (post-traumatic stress disorder) (Acute) Depression (Chronic) Anxiety (Chronic) Morbid obesity (Acute) Medical History Osteomyelitis Foot ulcer Tibia/fibula fracture Isiah placement Acetabulum fracture Open fracture of forearm H/O methicillin resistant Staphylococcus aureus Peripheral edema Right hip pain H/O deep venous thrombosis Snoring Daytime somnolence Chronic pain Social History/Home Situation: Patient resides in single-family home with ramp to enter with his 2 sons and a large dog. Patient independent wheelchair locomotion with power chair is able to propel short distances with bilateral upper extremities in his shower chair with large wheels. Patient is independent with ADLs, cooking like meals although can be difficult at times. He orders groceries online and are delivered to the home Equipment Owned/DME: Motorized wheelchair that tilts and reclines including elevating lower extremities, cushion, adjustable bed, shower chair, walk/wheel in shower, ramp Subjective: Pt reports he feels comfortable with his current transfer technique as it works well for him to safely get from bed to wheelchair or to his shower c hair without risk for fall. Pt reports he independently performs transfers and then can propel his shower chair into the bathroom, over the toilet or into his shower. He notes he has a caregiver who comes to the house daily to assist with tasks as he may need done. Patient reports he is currently taking college classes to earn his degree in psychology. Objective: [] General Observation: seated upright in bed with oxygen on at 3 L/min via NC, spasms noted BLE L>R , Arguello to bedside drainage Mental Status: alert and oriented x 4 , cooperative, pleasant , able to follow instruction and verbalize his specific care routine.and techniques Pain: back 5/10 Vital Signs: monitored by nursing ROM: Right Upper Extremity: WNL Left Upper Extremity: WNL Right Lower Extremity: hip extension to neutral with (+) anterior pelvic tilt; hipIR -8 degrees, knee 5-90 degrees ankle -5 degrees DF Left Lower Extremity:hip extension to neutral with anterior pelvic tilt, Hip IR to neutral; knee 0-90 degrees, DF -5 degrees Strength: Right Upper Extremity: 5/5 Left Upper Extremity:5/5 Bilateral lower Extremity: 0/5 secondary to spastic paraplegia Sensation: Intact through T spine Bed Mobility/Transfers: [] independent rolling simulated lateral scoot to wheelchair from bed independent. He positions his wheelchair parallel to his bed .Pt has flip up armrest on his power wheelchair. he leaves his legs on the bed and lateral scoots onto the wheelchair. Gait:NA Balance: [] Static Sitting: fair Dynamic Sitting: fair Static Standing: NA Dynamic Standing: NA Special Tests: Mobility Limitations Standardized Measure [facility] AM-PAC 6 clicks Basic Mobility Inpatient Short Form: Raw Score: 12 CMS Score: 68.66% Informed Consent/Education: Patient instructed in purpose of PT consult and plan of care. Assessment: Patient is a 34 year old male referred to physical therapy services with the diagnosis of osteomyelitis right foot. patient with complete spastic paraplegia since 2010 and is at baseline mobility level. Main need at this time is assistance with ranging B LE to minimize pain from spastic paraplegia. He will require education and training on PROM and gentle stretching exercises to B LE to minimize pain from spastic paraplegia. He will also benefit from progressive strengthening of B UE to mainatin ability to perform ADLs independently. Patient presents with clinical signs and symptoms consistent with current/admitting diagnoses that have resulted to mobility limitations, gait instability, generalized weakness, and overall ADL decline as demonstrated by the following impairment level findings: 1. Spastic paraplegia since 2010 2. Impaired sitting balance 3. Impaired activity tolerance 4. Pain in B LE 5. Impaired skin integrity 6. Impaired sensation Impairments are contributing to the following functional limitations: 1. Increased completion time for mobility ADL performance 2. Increased risk for falls 3. Increased risk for skin breakdown Despite above deficits and impairments patient is at baseline level of function patient provided with handout for passive range of motion that can be performed by aide/caregiver within home setting Patient is assessed as a Moderate 22348 complexity based on the following: History: 34 yo male with multiple comorbidities and complex past medical history Examination: as stated above Presentation:stable/evolving Decision Making:moderate Goals: n/a Plan of Care/Treatment Plan: n/a DISCHARGE RECOMMENDATIONS: [] [] Home with no services [] [x] Home with services ----Nursing for wound care and IV ABX [] Home with outpatient PT [] [] SNF for continued rehabilitation [] [] [facility] [] [] SNF versus LTC based on ability to participate and progress [] TREATMENT CODE/TIME: 00386/ [id number]
--- NOTE | 2024-08-15 15:20 | PDOC.CMPRO ---
Date of service: 08/15/24 Time of Service: 15:20 Care Management Progress Note Progress Note Text Progress Note Text: Thony was sitting up in bed when CM met with him today. He had just worked with PT, PT was still present. They were talking nicely. Per PT, Thony has excellent upper body strength, and has very good mobility for his condition. He has many adaptive equipment devices that help him at home, and he was given a couple of more devices from OT today. CM spoke with HH yesterday, [facility] is very heavily leaning toward not taking Thony back on service. They have stated that Thony is not compliant. The risk for infection is great in his home environment, he does not have a true support person, and he has been verbally abusive to staff in the past. Thony will have someone for support when he discharges home, he is going to get that contact info for CM to verify the presence of that support person. CM will confirm with the support. Thony continues to ask CM to advocate for him, which has been done. CM sent a referral to [facility] today, they do not have staffing availability for Thony's area. Discharge Potential Discharge Needs: PCP F/U Appt and Other (podiatry, wound care) Anticipated Barriers to Discharge: Other (availability of home health) Patient/Family Education Needs: Review discharge instructions, discuss Ask Me Three Transportation: EMS Plan: Anticipate that Thony will be discharged home once medically stable. It is unclear if he will have HH services at this time, but they will be recommended for wound care and IV antibiotics. Thony will f/u with his PCP, podiatry, and the wound care clinic at [facility] and continue per his plan of care. He will need to transport via EMS, as his wheelchair is not with him. CM will continue to follow. Social Determinants of Health Screening Will the Patient Participate in the Screening?: Declined to provide
--- NOTE | 2024-08-15 18:53 | NUR.NOTE ---
at 1852 I spoke directly with Thony after receiving a call from his mother. Per patient he does not want us to give out any information to anyone even if on HIPPA forms/consent. He asked me to tell everyone that if someone calls about him to tell them to call patient directly.
[2024-08-15 20:53] VITALS: BP 143/70; PULSE 74; RESP 16; TEMP 35.9; O2SAT 97
[2024-08-16] MEDS: HYDROmorphone 2 MG/ML SYR IVP ×4 (00:03→09:14)
[2024-08-16] MEDS: Normal Saline Flush 10 ML SYR IVP ×7 (00:03→23:43)
[2024-08-16] MEDS: Acetaminophen 500 MG TAB 1000 MG PO ×5 (00:03→23:42)
[2024-08-16] MEDS: Enoxaparin 40 MG/0.4 ML SYR SC ×2 (09:14→19:16)
[2024-08-16] MEDS: Sertraline 25 MG TAB PO (09:15)
[2024-08-16] MEDS: Ibuprofen 600 MG TAB PO ×4 (09:15→19:16)
[2024-08-16 09:16] VITALS: PULSE 65; O2SAT 95
[2024-08-16 10:24] VITALS: O2SAT 2
[2024-08-16] MEDS: Methocarbamol 500 MG TAB 1000 MG PO (12:27)
[2024-08-16] MEDS: oxyCODONE 10 MG TAB PO ×3 (12:28→21:36)
[2024-08-16] MEDS: HYDROmorphone 2 MG/ML SYR 1 MG IVP ×3 (14:31→23:42)
--- NOTE | 2024-08-16 16:11 | W.PM.PROGNOT ---
Date of Service Date of service: 08/16/24 Time of Service: 12:50 Assessment and Plan Assessment and plan (1) Open wound of right foot: Status: Acute (2) Ulcer of right foot with necrosis of bone: Status: Acute (3) Osteomyelitis: Assessment and plan: Patient Was seen and evaluated. He is status post OR excisional debridement with bone biopsy to the right foot. Date of surgery 08/14/2024. I had a very lengthy discussion with the patient again today. I discussed that limb salvage will take a long time and will be very high risk for recurrence even if the wound heals. He was advised that if the below the knee or [id number] amputation will most likely heal the fastest and will have the most reliable results. He states he will think about it however not ready to do so today. He would like to discuss this with [facility] first. I recommend continued antibiotics I did reach out to [facility] infectious disease and left a voicemail to request a curbside consultation for antibiotic management.. I recommend dressing changes every other day by the nursing team with Xeroform gauze packing, 4 x 4, Kerlix and an Eamon wrap. Unfortunately we are not able to start a wound VAC right now as we do not have the wound care team available over the long weekend Case was discussed with the hospitalist team in detail. Subjective Subjective Interval history since last seen: Patient was seen bedside today. Reports pain to the right foot. States he is not ready for any amputation as of yet however he has been thinking about it. States he has had a wound VAC applied at home and believes it can be done again Exam Extrem Other: Right lower extremity physical exam as from previous. Dressing change deferred today: Derm: Full-thickness ulceration with granular base the base is dark in coloration secondary to Surgicel use, palpable wound noted sub plantar lateral aspect of the right foot. Fifth metatarsal base is palpable. There is surrounding erythema, no crepitus no fluctuance no bogginess. No malodor Vascular: DP pulses palpable, PT nonpalpable secondary to edema. Edema noted to the right lower extremity. MSK: Muscle strength absent. Neuro: Light touch absent Objective Last Vital Signs Temp 96.6 F L 08/15/24 20:53 Pulse 65 08/16/24 09:16 Resp 16 08/15/24 20:53 BP 143/70 H 08/15/24 20:53 Pulse Ox 2 L 08/16/24 10:24 Time Spent with Patient Time Spent with Patient: >50 minutes Time was spent: preparing to see the patient(eg.review tests), obtaining and/or reviewing separately otained hiistory, ordering medications,tests, procedures, referring, communicating with other health school child care attendant, indepentently interpreting results, counseling the patient, care coordination and other
--- NOTE | 2024-08-16 16:23 | NUR.NOTE ---
Nursing Note: CM came to charge nurse to ask us to speak to pt about his vulger language. He has been having very loud cell phone conversations with family members that the pt next door can hear clearly and this pt is offended by his language. Pt apologized and said it would not happen again, then asked for his door to be closed.
[2024-08-16] MEDS: Ondansetron O.D.T. 4 MG TABEF PO (17:28)
--- NOTE | 2024-08-16 17:47 | PDOC.CMPRO ---
Date of service: 08/16/24 Time of Service: 17:48 Care Management Progress Note Progress Note Text Progress Note Text: CM has met with Thony several times today. It has not been his best day, but he has treated CM with respect throughout. Thony has had a lot of pain today, and has been changed over to oral pain meds, which he states are not helping. His 16yo son was involved in a fight today, and the police were at his house. His friend is staying with the kids, but Thony is very upset that he isn't able to be home. He mentioned leaving AMA, in haste, but quickly realized that is not in his best interest. [facility] had a leadership meeting today, where Thony's case was discussed. HH was reaching out to the PCP office after the meeting to assure that they would follow his HH orders. No decision has been made as of yet. Hospitalist did reach out to the PCP. It seems that as of now, the PCP will follow the HH orders, but this is not confirmed. It is currently after office hours, the final decision should come in tomorrow. CM did reach out to [facility] home infusion company to update them on the discharge plan. Discharge Potential Discharge Needs: PCP F/U Appt and Other (podiatry, would care, ) Anticipated Barriers to Discharge: Other (availability of home home) Patient/Family Education Needs: Review discharge instructions, discuss Ask Me Three Transportation: EMS Plan: Anticipate that Thony will be discharged home once medically stable. It is unclear if he will have HH services at this time, but they will be recommended for wound care and IV antibiotics. Thony will f/u with his PCP, podiatry, and the wound care clinic at [facility] and continue per his plan of care. He will need to transport via EMS, as his wheelchair is not with him. CM will continue to follow. Social Determinants of Health Screening Will the Patient Participate in the Screening?: Declined to provide
--- NOTE | 2024-08-16 19:07 | W.PM.PROGNOT ---
Date of Service Date of service: 08/16/24 Time of Service: 19:07 Assessment and Plan Assessment and plan (1) Osteomyelitis of right foot: Status: Acute Assessment and plan: -as seen on xray, clinically positive probe to bone by podiatry. -s/p excisional wound debridement and bone biopsy of the right foot 08/14 - PICC line placed 08/14 and based on culture results transitioned to daily IV daptomycin (off vanco/cefepime) - Per podiatry and ortho, AKA recommended, but patient declines, wants to try to heal, wound vac ordered. -working on plan for outpatient abx and coordination with home health services, which is a challenge with his previous behavior -Messaged with PCP Marilee about coordination of care, she will sign HH orders if we can set them up (2) Anxiety: Status: Chronic Assessment and plan: -Chronic anxiety/depression/PTSD. -Resumed sertraline, which PCP Rx'd earlier this year, increase to 50mg after first week. (3) Pressure sore on buttocks: Status: Acute Assessment and plan: -perineal/base of scrotum -This is being managed by wound clinic at . -Notes on paper chart now, Continue wound care. (4) Neurogenic bladder: Status: Acute Assessment and plan: -noted, pt has seen Dr Ramos in the past. -Arguello changed at admission (5) DVT prophylaxis: Status: Acute Assessment and plan: -high risk as h/o DVT, on high dose enoxaparin Subjective Subjective Patient reports: tolerating a regular diet; denies diarrhea, nausea, vomiting, shortness of breath or fever Interval history since last seen: Events: Seen by Podiatry and orthopedics. Pt declines amputation Stopped IV hydromorphone. Pt c/o severe pain in both legs. States he is in pain all the time but the hospital is the only place he gets treated. Exam Narrative Exam Narrative: Anxious therwise well-appearing gentleman laying in bed in no acute distress, ANO x 4, heart regular rhythm, lungs good auscultation bilaterally, abdomen obese, soft, nontender, nondistended, right foot wrapped in bandage without surrounding erythema or drainage Objective Last Vital Signs Temp 35.9 C L 08/15/24 20:53 Pulse 65 08/16/24 09:16 Resp 16 08/15/24 20:53 BP 143/70 H 08/15/24 20:53 Pulse Ox 2 L 08/16/24 10:24 Time Spent with Patient Time Spent with Patient: 35-49 minutes Time was spent: preparing to see the patient(eg.review tests), obtaining and/or reviewing separately otained hiistory, ordering medications,tests, procedures, referring, communicating with other health hospice care sales consultant, indepentently interpreting results, counseling the patient and care coordination
[2024-08-16 20:41] VITALS: BP 146/87; PULSE 58; RESP 18; TEMP 36.3; O2SAT 100
[2024-08-17] MEDS: Docusate Sodium 100 MG CAP PO (01:51)
[2024-08-17] MEDS: Methocarbamol 500 MG TAB 1000 MG PO ×2 (01:51→08:00)
[2024-08-17] MEDS: oxyCODONE 10 MG TAB PO ×2 (01:51→06:09)
[2024-08-17] MEDS: HYDROmorphone 2 MG/ML SYR 1 MG IVP ×4 (03:41→16:09)
[2024-08-17] MEDS: Acetaminophen 500 MG TAB 1000 MG PO ×3 (05:33→19:42)
[2024-08-17] MEDS: Normal Saline Flush 10 ML SYR IVP ×4 (07:59→16:11)
[2024-08-17] MEDS: Sertraline 25 MG TAB 50 MG PO (08:00)
[2024-08-17] MEDS: Ibuprofen 600 MG TAB PO ×4 (08:00→19:43)
[2024-08-17] MEDS: Enoxaparin 40 MG/0.4 ML SYR SC ×2 (08:01→19:42)
[2024-08-17 10:35] VITALS: BP 151/81; PULSE 51; RESP 17; TEMP 35.5; O2SAT 98
--- NOTE | 2024-08-17 16:47 | DSE_ITS ---
Date of service: 08/17/24 Time of Service: 16:47 DS: Diagnosis Discharge Diagnosis (1) Osteomyelitis of right foot: Status: Acute (2) Anxiety: Status: Chronic (3) Pressure sore on buttocks: Status: Acute (4) Neurogenic bladder: Status: Acute (5) DVT prophylaxis: Status: Acute Discharge Plan Disposition Patient Disposition: Home W/Home Health Services Condition: Stable Discharge Details Reason For Visit: cellulitis Admit Date/Time: 08/09/24 23:13 Admit Provider: Mati Fajardo Attending Provider: Mati Fajardo Primary Care Provider: Clarissa Hunt Hospital Course Hospital Course: 34 yo M with paraplegia and history of chronic pressure sores who presented with worsening of right foot pain. He had been followed at [facility] for wound care but missed recent appointments due to transportation challenges. Foot x-ray and clinical exam with positive probe to bone both consistent with osteomyelitis. He was started on vancomycin and cefepime. He was seen by Dr. Simms from podiatry and underwent excisional debridement and bone biospy, which grew MRSA and enterococcus. He was transitioned to Daptomycin and a PICC line was placed on 08/14. He was also seen by Dr. Hernandez from orthopedics. He and Dr. Simms agreed the best treatment would be amputation. Due to hardware in his right lower leg, AKA would be recommended. He initially declined, but then changed his mind. He prefers to go home and follow up with [facility] for a discussion about this. Due to logistically challenges with home infusions, and likely need for ampu tation for definitive therapy, he was given the option of oral therapy with linezolid, which would cover the MRSA and enterococcus. He was discharged with a prescription for this. The PICC line was removed prior to discharge. was ordered for wound care and to monitor treatment. He had a lot of pain and anxiety, though it was hard to differentiate pain from his infection/surgery with his chronic bilateral foot pain. His pain was treated with IV hydromorphone and transitioned to some oral oxycodone. He was sleepy with pain medication but would request pain medication immediately after waking up. He understands he will be going home on limited pain medication and he states he has done the same in the past without experiencing withdrawal, and he just wanted his pain treated while in the hospital because it's the only place he gets the pain treated. He was also started on 25mg sertraline, but this was not continued after the decision to discharge on linezolid. Recommendations for Follow Up Recommended tests to be ordered by follow up provider: weekly CBC starting 08/24 Home Meds and New Rx's Prescriptions: New linezolid 600 mg tablet 600 mg PO BID Qty: 56 0RF Rx Instructions: stop when IV daptomycin resumed oxycodone 10 mg Tablet 10 mg PO Q4H PRN PRNQty: 8 0RF Continued acetaminophen 500 mg tablet 1,000 mg PO Q6H Qty: 40 0RF ibuprofen 600 mg tablet 600 mg PO QID Qty: 20 0RF Discharge Instructions Instructions: Osteomyelitis in adults Stand Alone Forms: Nursing Discharge Form Referrals: Clarissa Hunt APRN [Primary Care Provider, Family Practice] Referral Note: Called PCP and left a voicemail as the office is closed. Activity:: Activity as Tolerated Equipment/Supplies:: No Equipment Needed Diet:: As Tolerated Discharge Orders Discharge Orders: Discharge Order (Routine); Ordered 08/17/24 Ordered By: Pierce Watters DS: Summary Time Spent with Patient providing and/or coordinating discharge services: Greater than 30 minutes Status at Discharge Functional status at discharge: independent ambulation Overall status at discharge: patient is not back to baseline Mental Status: mental status grossly normal Speech and Movement: speech and movement normal Mood: congruent mood Affect: normal affect Exam Narrative Exam Narrative: Anxious therwise well-appearing gentleman laying in bed in no acute distress, ANO x 4, heart regular rhythm, lungs good auscultation bilaterally, abdomen obese, soft, nontender, nondistended, right foot wrapped in bandage without surrounding erythema or drainage. Buttocks not examined today Psych Mental Status: mental status grossly normal Speech and Movement: speech and movement normal Mood: congruent mood Affect: normal affect DS: Data Vitals/I&O Vitals and I&O: Vital Signs Temperature 35.5 C L 08/17/24 10:35 Temperature Source Temporal Artery Scan 08/17/24 10:35 Pulse 51 L 08/17/24 10:35 Pulse Rhythm Regular 08/10/24 00:47 Pulse 49 L 08/14/24 10:03 Respiratory Rate 17 08/17/24 10:35 Respiratory Effort Normal 08/10/24 00:47 Respiratory Depth Normal 08/10/24 00:47 Respiratory Pattern Normal 08/10/24 00:47 Blood Pressure 151/81 H 08/17/24 10:35 Blood Pressure Mean 104 08/17/24 10:35 Pulse Oximetry 98 08/17/24 10:35 Oxygen Delivery Method Room Air 08/17/24 10:35 Oxygen Flow Rate 0 08/17/24 10:35 Pain Level 8 08/17/24 11:59 Comment Patient refused vitals. RN notified 08/16/24 08:22 Intake & Output 08/16/24 08/17/24 08/17/24 23:59 11:59 23:59 Intake Total 71 / 1611 360 / 770 410 / 770 Output Total 1250 / 1825 300 / 300 Balance -1179 / -214 360 / 470 110 / 470 Weight 192 kg Intake: IV 71 / 161 50 / 50 Oral 360 / 720 360 / 720 Output: Urine 1250 / 1825 300 / 300 Other: Urine Color Light Tamika Straw Urine Appearance Clear Data Completed and Pending Labs on day of discharge: Preliminary micro results at discharge 08/14/24 09:17 Foot - Right Surgical Culture - Preliminary Staph aureus, MRSA Enterococcus faecalis Gram negative isiah Gram positive marielena, mixed 08/14/24 09:18 Foot - Right Surgical Culture - Preliminary Staph aureus, MRSA Enterococcus faecalis 08/14/24 09:17 Foot - Right Anaerobic Culture - Preliminary 08/14/24 09:18 Foot - Right Anaerobic Culture - Preliminary PFSH All Active Problems Osteomyelitis of right foot (Acute) Ulcer of right foot with necrosis of bone (Acute) DVT prophylaxis (Acute) Pressure sore on buttocks (Acute) Open wound of right foot (Acute) Hospital discharge follow-up (Acute) Chronic urinary tract infection (Acute) Back pain (Acute) Decubitus ulcer (Acute) Scrotal ulcer (Acute) Urinary tract infection (Acute) Sepsis (Acute) Chronic indwelling Arguello catheter (Acute) Left knee pain (Acute) Onychomycosis (Acute) Right knee pain (Acute) Elevated hemoglobin A1c (Acute) Preventative health care (Acute) Hypogonadism in male (Acute) Chronic complete spastic paraplegia (Acute) PTSD (post-traumatic stress disorder) (Acute) Anxiety (Chronic) Morbid obesity (Acute) Depression (Chronic) Neurogenic bowel (Acute) Neurogenic bladder (Acute) Wheelchair bound (Acute) GERD (gastroesophageal reflux disease) (Chronic) Chronic back pain (Acute) Chronic leg pain (Acute) Medical History UTI (urinary tract infection) Osteomyelitis Foot ulcer Tibia/fibula fracture Isiah placement Acetabulum fracture Open fracture of forearm H/O methicillin resistant Staphylococcus aureus Peripheral edema Right hip pain H/O deep venous thrombosis Snoring Daytime somnolence Chronic pain Social History Smoking/Tobacco Use Status: Never Smoking risk assessment performed?: Yes Alcohol Intake: current Alcohol Intake frequency: holidays/special occasions only Drug use: Occasionally Substance use type: marijuana Details: Has tried marijuana in the past, makes nerve pain worse, denies others. Adopted: No Caregiver/Support person: No Foster care: No Household members: children Housing: house Number of Children: 2 number of grandchildren: 0 Education Level: high school Do you need help understanding health information?: Never current occupation: disabled Pets and animals: Yes (2) Pets and animals: cat(s) and dog(s) Sexually active: No Do you think of yourself as: straight/heterosexual Current gender identity: male What is your relationship status?: How often do you talk on the phone with friends or family?: three or more times per week How often do you get together with friends or relatives?: three or more times per week How often do you attend congregation or restorationist services?: decline to answer Do you belong to any clubs or organized social groups?: no Panel score (0-1 are the most socially isolated patients): 1 What type of physical activity do you participate in: none Joslyn/Protestant: None Seatbelt use: always Helmet use: No Drive intox or ride w/intox electric train driver: No Do you feel safe at home: Yes Do you feel safe in your relationship?: Yes Time Spent with Patient Time Spent with Patient: 45-69 minutes Time was spent: preparing to see the patient(eg.review tests), obtaining and/or reviewing separately otained hiistory, ordering medications,tests, procedures, referring, communicating with other health youth care specialist, indepentently interpreting results, counseling the patient and care coordination
--- NOTE | 2024-08-17 17:11 | PDOC.CMDIS ---
Date of service: 08/17/24 Time of Service: 17:11 LACE Index Scoring Tool Questions: Length of Stay (in days): 7 - 13 Was the patient admitted via the E.D.?: Yes E.D. Visits: 2 Answers: Total Score: 10 Risk of Readmission: High Risk Care Management Discharge Plan Reason for Hospitalization: osteomyelitis of right foot Discharge Plan: Thony will be discharged later tonight with new RN services for wound care. He has been accepted back by [facility]. Thony signed a behavior agreement, CM witnessed and faxed to [facility]. It was decided that he will not need the IV antibiotics, and is discharged on PO. His PICC line will be pulled. Thony will f/u with his PCP and with [facility] wound care, and for a second opinion regarding Thony will transport home via [facility] wheelchair van. Thony is fully aware and in support of this discharge plan. Patient/Family Education Needs: Review of discharge instructions, activity, limitations, and discuss Ask me 3. Services Needed at Discharge: Home Health Care Services
--- NOTE | 2024-08-17 17:38 | PDOC.HHF2F_ITS ---
Home Health Referral Home Health Orders Clinical synopsis of why skilled professionals are needed: 34 yo M with paraplegia and history of chronic pressure sores who presented with worsening of right foot pain. He had been followed at [facility] for wound care but missed recent appointments due to transportation challenges. Foot x-ray and clinical exam with positive probe to bone both consistent with osteomyelitis. He was started on vancomycin and cefepime. He was seen by Dr. Simms from podiatry and underwent excisional debridement and bone biospy, which grew MRSA and enterococcus. He was transitioned to Daptomycin and a PICC line was placed on 08/14. He was also seen by Dr. Hernandez from orthopedics. He and Dr. Simms agreed the best treatment would be amputation. Due to hardware in his right lower leg, AKA would be recommended. He initially declined, but then changed his mind. He prefers to go home and follow up with [facility] for a discussion about this. Due to logistically challenges with home infusions, and likely need for amputation for definitive therapy, he was given the option of oral therapy with linezolid, which would cover the MRSA and enterococcus. He was discharged with a prescription for this. The PICC line was removed prior to discharge. was ordered for wound care and to monitor treatment. He had a lot of pain and anxiety, though it was hard to differentiate pain from his infection/surgery with his chronic bilateral foot pain. His pain was treated with IV hydromorphone and transitioned to some oral oxycodone. He was sleepy with pain medication but would request pain medication immediately after waking up. He understands he will not be going home with limited pain medication and he states he has done the same in the past without experiencing withdrawal, and he just wanted his pain treated while in the hospital because it's the only place he gets the pain treated. He was also started on 25mg sertraline, but this was not continued after the decision to discharge on linezolid. Medical diagnosis necessitation home health referral: osteomyelitis, foot ulcer Registered Nurse: Check all that apply Instruct on new or changed medication(s)/assess compliance: Ordered Instruct on, and maintenance of, urinary device: Ordered Assess for exacerbation of medical condition, instruct patient/caregivers on signs and symptoms to report for early detection: Ordered Assess wound for signs and symptoms of infection, instruct on wound care and/or provide skilled wound care consisting of: foot ulcer and scrotal pressure sores Physical Therapist: Check all that apply Increase strength & endurance for safe mobility at home: Ordered Occupational Therapist: Evaluate and treat for patient unable to perform ADL/IADL/self-care: Ordered Deckhand Maintenance: Assist with community resources: Ordered Assist with intermodal dispatcher care planning: Ordered Home Bound Status Requires the aid of supportive device (check all that apply): Wheelchair Describe why leaving home would require a considerable and taxing effort: Oxygen Encounter Date and Reason: I certify that a FTF encounter for this patient was performed on August 17, 2024 and that such encounter was related to the primary reason the patient requires home health services. The encounter was conducted in the following manner: * By me as the certifying physician, STUDIO MUSICIAN, PA or * By an inpatient physician, STUDIO MUSICIAN or PA during an inpatient stay who communicated findings to me, Certification And Authentication I certify that I composed the above information based on my clinical judgment relating to this patient's medical condition and, if applicable, clinical findings communicated to me by the NPP or inpatient physician who performed the FTF encounter. Name of Provider that will be monitoring home health services: Clarissa Hunt
== END 2024-08-17 20:10 | disposition home health service (06) | DRG 478 ==
LOC: ER 23:33 → MS 08-10 00:45
PROVIDERS: Family Medicine; Podiatrist; Admitting Provider Hospitalist; Emergency Provider Emergency Medicine; PCP Nurse Practitioner Family; Responsible Provider Family Medicine; Visit Provider Hospitalist
PROC: 0KBV0ZZ Excision of Right Foot Muscle, Open Approach (ICD-10-PCS; CPT 11043; principal; 2024-08-14 07:30)
DX: M86.171 Other acute osteomyelitis, right ankle and foot (principal); G82.21 Paraplegia, complete; Z68.43 Body mass index [BMI] 50.0-59.9, adult; L97.414 Non-pressure chronic ulcer of right heel and midfoot with necrosis of bone; K59.2 Neurogenic bowel, not elsewhere classified; N31.9 Neuromuscular dysfunction of bladder, unspecified; G89.29 Other chronic pain; E66.01 Morbid (severe) obesity due to excess calories; F41.8 Other specified anxiety disorders; F43.10 Post-traumatic stress disorder, unspecified; Z99.3 Dependence on wheelchair; K21.9 Gastro-esophageal reflux disease without esophagitis; L89.899 Pressure ulcer of other site, unspecified stage; R73.03 Prediabetes
CPT/HCPCS: 11043; 20240; 36573; 00123; 36415; 80048; 80053; 84145; 85027; 85652; 87040; 87077; 87641; 96365; 96368; 96375; 96376; 97162; 97166; 97535; 99285; J1650; 71045; 73590; 73630; 76000; 80202; 82565; 83605; 85025; 85610; 86140; 87070; 87075; 87186; 87205; 88304; 88307; 88311; 88312; 88313; 88361; 99222; 99232; 99233; 99239; J0692; J0878; J1171; J1885; J2250; J3010; J3370; J3372

== ENCOUNTER 2024-08-30 16:09 | Outpatient (REF) | payer MEDICAID, SELFPAY ==
[2024-08-30 22:34] LABS: Abs Immature Grans 0.04 10^3/uL (0.0-0.06); HCT 34.3 % (40.0-50.0); HGB 10.3 g/dL (13.5-17.5); Immature Grans % 0.4 %; MCH 24.3 pg (27.0-33.0); MCHC 30.0 % (32.0-36.0); MCV 81 fL (80-95); MPV 11.9 fL (8.0-11.0); Platelet Count 306 10^3/uL (130-400); RBC 4.23 10^6/uL (4.36-5.78); RDW 16.4 % (11.8-14.1); RDW-SD 48.3 fL; WBC 9.66 10^3/uL (4.4-10.8)
[2024-08-30 22:58] LABS: ALT 27 U/L (16-63); AST 20 U/L (15-37); Albumin 3.0 g/dL (3.4-5.0); Alkaline Phosphatase 50 U/L (46-116); Anion Gap 4.5 mmol/L (3-11); BUN 11 mg/dL (7-18); Bilirubin, Total 0.4 mg/dL (0.2-1.0); CO2 32.5 mmol/L (21.0-32.0); Calcium 9.4 mg/dL (8.5-10.1); Chloride 100 mmol/L (98-107); Estimated GFR 135.56 (mL/min/1.73m2); Glucose 90 mg/dL (74-106); Potassium 4.4 mmol/L (3.5-5.1); Sodium 137 mmol/L (136-145); Total Protein 9.0 g/dL (6.4-8.2)
[2024-08-30 23:16] LABS: Hemoglobin A1C 5.7 % (<5.7)
[2024-08-31 12:40] LABS: Lab Add On Test DONE
[2024-08-31 13:05] LABS: Iron 38 ug/dL (65-175)
[2024-08-31 13:15] LABS: Ferritin 69 ng/mL (26-388)
== END 2024-08-30 16:10 | disposition home or self-care (01) ==
LOC: LBN 16:09
PROVIDERS: PCP Nurse Practitioner Family; Visit Provider Nurse Practitioner Family
DX: E66.01 Morbid (severe) obesity due to excess calories (principal); M86.9 Osteomyelitis, unspecified
CPT/HCPCS: 80053; 82728; 83036; 83540; 85025

== ENCOUNTER 2024-09-05 03:11 | Outpatient (CLI) | payer MEDICAID, SELFPAY ==
[2024-09-05 10:03] LABS: Abs Immature Grans 0.02 10^3/uL (0.0-0.06); HCT 35.9 % (40.0-50.0); HGB 11.2 g/dL (13.5-17.5); Immature Grans % 0.3 %; MCH 25.5 pg (27.0-33.0); MCHC 31.2 % (32.0-36.0); MCV 82 fL (80-95); MPV 10.1 fL (8.0-11.0); Platelet Count 284 10^3/uL (130-400); RBC 4.40 10^6/uL (4.36-5.78); RDW 16.7 % (11.8-14.1); RDW-SD 48.5 fL; WBC 7.42 10^3/uL (4.4-10.8)
== END 2024-09-05 03:12 | disposition home or self-care (01) ==
LOC: LBO 03:11
PROVIDERS: Absent Provider Nurse Practitioner Family; PCP Nurse Practitioner Family; Referring Provider Nurse Practitioner Family; Visit Provider Nurse Practitioner Family
DX: L97.514 Non-pressure chronic ulcer of other part of right foot with necrosis of bone (principal)
CPT/HCPCS: 36415; 85025

== ENCOUNTER 2024-09-19 03:48 | Outpatient (CLI) | payer MEDICAID, SELFPAY ==
[2024-09-19 10:41] LABS: Abs Immature Grans 0.02 10^3/uL (0.0-0.06); HCT 35.5 % (40.0-50.0); HGB 11.0 g/dL (13.5-17.5); Immature Grans % 0.3 %; MCH 25.1 pg (27.0-33.0); MCHC 31.0 % (32.0-36.0); MCV 81 fL (80-95); MPV 10.5 fL (8.0-11.0); Platelet Count 265 10^3/uL (130-400); RBC 4.38 10^6/uL (4.36-5.78); RDW 16.9 % (11.8-14.1); RDW-SD 49.3 fL; WBC 7.19 10^3/uL (4.4-10.8)
== END 2024-09-19 03:49 | disposition home or self-care (01) ==
LOC: LBO 03:48
PROVIDERS: Absent Provider Nurse Practitioner Family; PCP Nurse Practitioner Family; Referring Provider Nurse Practitioner Family; Visit Provider Nurse Practitioner Family
DX: M86.9 Osteomyelitis, unspecified (principal)
CPT/HCPCS: 36415; 85025

== ENCOUNTER 2025-01-12 18:25 | Outpatient (REF) | payer MEDICAID, SELFPAY | END 2025-01-12 18:26 | disposition home or self-care (01) | LOC: LBN 18:25 | PROVIDERS: PCP Nurse Practitioner Family; Visit Provider Student in an Organized Health Care Education/Training Program | DX: Z89.511 Acquired absence of right leg below knee (principal); G89.4 Chronic pain syndrome; Z87.39 Personal history of other diseases of the musculoskeletal system and connective tissue | CPT/HCPCS: 87077; 87070; 87186; 87205 ==

== ENCOUNTER 2025-02-05 16:18 | Outpatient (REF) | payer MEDICAID, SELFPAY ==
[2025-02-05 17:26] LABS: Glucose Negative (Negative)
[2025-02-05 17:36] LABS: RBC >50 HPF (0-2); WBC >50 HPF (0-5)
== END 2025-02-05 16:19 | disposition home or self-care (01) ==
LOC: LBN 16:18
PROVIDERS: PCP Student in an Organized Health Care Education/Training Program; Visit Provider Student in an Organized Health Care Education/Training Program
DX: N31.9 Neuromuscular dysfunction of bladder, unspecified (principal); Z87.440 Personal history of urinary (tract) infections
CPT/HCPCS: 87077; 81003; 81015; 87086; 87186